=== PATIENT | female | born 1945 | race Caucasian/White ===

== ENCOUNTER → 2016-03-19 | Outpatient (CLI) | payer OTHER, MEDICARE ==
[~2016-03-19] MED LIST: ALBUAER2 INH; ASCA500 PO; ASPCH81 PO; BCTCR/30 EXT; BECL0.072 INH; CLTP PO; CYAN250T PO; FLV400 PO; FURO80TA63 PO; GABA-113 PO; GLCPUNK PO; GLUC10007 PO; HYZ/10015 PO; INSUINJ8 SC; METO-157 PO; MULT-506 PO; NRN/300 PO; NSNN50; NVLGI SC; OLOP0.1S2 OP; ONDA4TAB46 PO; POTA-335 PO; PYRI100T2 PO; RANI300T2 PO; SIMV40TA2 PO; SNG10 PO; SYN100 PO
--- NOTE | 2016-03-19 12:36 | MAMMOGRAPHY REPORT ---
BILATERAL DIGITAL SCREENING MAMMOGRAM WITH CAD: 03/19/2016 CLINICAL HISTORY: Routine screening. Patient has no complaints. TECHNIQUE: Bilateral CC and MLO, left XCCL views were obtained. Current study was also evaluated wi th a Computer Aided Detection (CAD) system. COMPARISON: Comparison is made to exams dated: 03/16/2015 mammogram, 03/13/2013 mammogram, 03/15/20 14 mammogram, 03/21/2012 mammogram, 03/10/2012 mammogram, and 03/09/2011 mammogram - [facility]. BREAST COMPOSITION: There are scattered areas of fibroglandular density in both breasts. FINDINGS: There are benign calcifications and scattered stable punctate benign-appearing microcalcif ications bilaterally. Stable asymmetries in the lateral left breast. No new suspicious mass, archi tectural distortion or cluster of microcalcifications is seen. IMPRESSION: ACR BI-RADS CATEGORY 1: NEGATIVE There is no mammographic evidence of malignancy. A 1 year screening mammogram is recommended. The p atient will receive written notification of the results. Approximately 10% of breast cancers are not detected with mammography. A negative mammographic repor t should not delay biopsy if a clinically suggestive mass is present. Judy Ziegler M.D. ay/:03/19/2016 10:26:19 Tearer: Ashvin CARVAJAL(Comfort)([place]), [facility] letter sent: Normal 1/2 BI-RADS Code: ACR BI-RADS Category 1: Negative
== END | disposition home or self-care (01) ==
LOC: C.MAMM 08:55
PROVIDERS: ATTEND Obstetrics & Gynecology
DX: Z12.31 Encounter for screening mammogram for malignant neoplasm of breast (principal)

== ENCOUNTER → 2016-05-23 | Outpatient (CLI) | payer OTHER, MEDICARE ==
[2016-05-23 12:40] LABS: ALKALINE PHOSPHATASE 62 U/L (45-117); ALT/SGPT 31 U/L (12-78); AST/SGOT 23 U/L (15-37); BLOOD UREA NITROGEN 24 mg/dl (7-18); BUN/CREATININE RATIO 21.6 (10-20); CALCIUM 9.4 mg/dl (8.5-10.1); CARBON DIOXIDE 26 mmol/L (21-32); CHLORIDE 103 mmol/L (98-107); CHOLESTEROL 124 mg/dl (0-200); CHOLESTEROL/HDL RATIO 2.2; GLUCOSE 134 mg/dl (70-99); HDL CHOLESTEROL 56 mg/dl; LDL CHOLESTEROL CALCULATED 39 mg/dl; POTASSIUM 3.9 mmol/L (3.5-5.1); SODIUM 140 mmol/L (136-145); TRIGLYCERIDES 145 mg/dl (0-150); VERY LOW DENSITY LIPOPROT CALC 29 mg/dl
[2016-05-23 12:50] LABS: ALB/GLOB RATIO 0.9 (0.9-2)
[2016-05-23 13:24] LABS: ESTIMATED AVERAGE GLUCOSE 154 mg/dl; HA1C FLAG Normal (Normal)
== END | disposition home or self-care (01) ==
LOC: C.LABBFT 07:36
PROVIDERS: ATTEND Internal Medicine
DX: E11.9 Type 2 diabetes mellitus without complications (principal)

== ENCOUNTER → 2016-07-16 | Outpatient (CLI) | payer OTHER, MEDICARE ==
[~2016-07-16] VITALS: Ht 171.5 cm; Wt 130.2 kg
[~2016-07-16] MED LIST changes: -OLOP0.1S2 OP; +OLOP0.1S3 OP
[2016-07-16 13:56] VITALS: BP 117/74; PULSE 108; Ht 171.5 cm; Wt 130.2 kg
== END | disposition home or self-care (01) ==
LOC: C.NEUR 13:38
PROVIDERS: ATTEND Physician Assistant
DX: J45.909 Unspecified asthma, uncomplicated (principal); G47.30 Sleep apnea, unspecified

== ENCOUNTER → 2016-10-09 | Outpatient (CLI) | payer OTHER, MEDICARE ==
[~2016-10-09] MED LIST changes: -METO-157 PO; +OLOP0.1S2 OP; -OLOP0.1S3 OP; -ONDA4TAB46 PO
== END | disposition home or self-care (01) ==
LOC: C.LAB 07:59
PROVIDERS: ATTEND Obstetrics & Gynecology
DX: C54.1 Malignant neoplasm of endometrium (principal); M54.9 Dorsalgia, unspecified; M41.9 Scoliosis, unspecified

== ENCOUNTER → 2016-10-09 | Outpatient (CLI) | payer OTHER, MEDICARE ==
--- NOTE | 2016-10-09 08:57 | DIAGNOSTIC IMAGING REPORT ---
L-SPINE MIN 4 VIEWS ROUTINE HISTORY: Pain M54.9 [id number] COMPARISON: None. FINDINGS: There is no fracture. Moderate rotational levoscoliosis. Moderate to rather significant degenerative disc changes throughout. No evidence for compression deformity. Moderate anterior osteophytic changes throughout. IMPRESSION: Degenerative change. Scoliosis. No acute process. The above report was generated using voice recognition software. It may contain grammatical, syntax or spelling errors. Electronically signed by: Gaurang Christopher M.D. 10/09/2016 8:56 AM Dictated Date/Time: 10/09/2016 8:56 AM
== END | disposition home or self-care (01) ==
LOC: C.RAD1850 08:40
PROVIDERS: ATTEND Physician Assistant Medical
DX: M54.9 Dorsalgia, unspecified (principal); M41.9 Scoliosis, unspecified

== ENCOUNTER → 2016-11-07 | Outpatient (CLI) | payer OTHER, MEDICARE ==
[2016-11-07 12:21] LABS: BASO % 0.7 %; BASO ABS # 0.05 K/uL (0-0.2); COMPLETE YES; EOS % 3.1 %; HEMATOCRIT 39.6 % (37-47); IG% 0.3 %; LYMPH ABS # 2.33 K/uL (1.2-3.4); MEAN CELL VOLUME 93.2 fL (80-100); MEAN CORPUSCULAR HEMOGLOBIN 29.9 pg (25-34); MEAN CORPUSCULAR HGB CONC 32.1 g/dl (32-36); MEAN PLATELET VOLUME 12.2 fL (7.4-10.4); MONO % 6.4 %; NEUT % 58.5 %; PLATELET COUNT 172 K/uL (130-400); RED BLOOD COUNT 4.25 M/uL (4.2-5.4); WHITE BLOOD COUNT 7.51 K/uL (4.8-10.8)
[2016-11-07 12:59] LABS: ALT/SGPT 26 U/L (12-78); BLOOD UREA NITROGEN 21 mg/dl (7-18); BUN/CREATININE RATIO 16.1 (10-20); CALCIUM 9.2 mg/dl (8.5-10.1); CARBON DIOXIDE 31 mmol/L (21-32); CHLORIDE 103 mmol/L (98-107); CHOLESTEROL 126 mg/dl (0-200); GLUCOSE 143 mg/dl (70-99); POTASSIUM 4.3 mmol/L (3.5-5.1); SODIUM 139 mmol/L (136-145)
[2016-11-07 13:10] LABS: ALKALINE PHOSPHATASE 54 U/L (45-117); AST/SGOT 23 U/L (15-37); CHOLESTEROL/HDL RATIO 2.6; HDL CHOLESTEROL 49 mg/dl; LDL CHOLESTEROL CALCULATED 46 mg/dl; TRIGLYCERIDES 157 mg/dl (0-150); VERY LOW DENSITY LIPOPROT CALC 31 mg/dl
[2016-11-07 13:11] LABS: RATIO 4.2 mcg/mg (0-30.0)
[2016-11-07 13:32] LABS: ESTIMATED AVERAGE GLUCOSE 146 mg/dl; HA1C FLAG Normal (Normal)
== END | disposition home or self-care (01) ==
LOC: C.LABBFT 07:45
PROVIDERS: ATTEND Internal Medicine
DX: E10.9 Type 1 diabetes mellitus without complications (principal)

== ENCOUNTER → 2016-12-19 | Outpatient (CLI) | payer OTHER, MEDICARE ==
[2016-12-19 13:16] LABS: THYROID STIMULATING HORMONE 0.135 uIu/ml (0.300-4.500)
== END | disposition home or self-care (01) ==
LOC: C.LABBFT 08:04
PROVIDERS: ATTEND Internal Medicine
DX: E03.9 Hypothyroidism, unspecified (principal)

== ENCOUNTER → 2017-01-31 | Outpatient (CLI) | payer OTHER, MEDICARE ==
[~2017-01-31] MED LIST changes: -OLOP0.1S2 OP; +OLOP0.1S3 OP
[2017-01-31 14:30] LABS: THYROID STIMULATING HORMONE 0.073 uIu/ml (0.300-4.500)
== END | disposition home or self-care (01) ==
LOC: C.LABBFT 08:44
PROVIDERS: ATTEND Internal Medicine
DX: E03.9 Hypothyroidism, unspecified (principal)

== ENCOUNTER → 2017-03-20 | Outpatient (CLI) | payer OTHER, MEDICARE ==
--- NOTE | 2017-03-20 14:58 | MAMMOGRAPHY REPORT ---
BILATERAL DIGITAL SCREENING MAMMOGRAM TOMOSYNTHESIS WITH CAD: 03/20/2017 CLINICAL HISTORY: Routine screening examination. TECHNIQUE: Breast tomosynthesis in addition to standard 2D mammography was performed. Current study was also evaluated with a Computer Aided Detection (CAD) system. COMPARISON: Comparison is made to exams dated: 03/19/2016 mammogram, 03/16/2015 mammogram, 03/15/2014 mammogram, 03/13/2013 mammogram, 09/22/2012 mammogram, and 03/21/2012 mammogram - [facility]. BREAST COMPOSITION: There are scattered areas of fibroglandular density in both breasts. FINDINGS: There are a few benign rim calcifications in the breasts. No suspicious mass, architectura l distortion or cluster of microcalcifications is seen. IMPRESSION: ACR BI-RADS CATEGORY 1: NEGATIVE There is no mammographic evidence of malignancy. A 1 year screening mammogram is recommended. The pa tient will receive written notification of the results. Approximately 10% of breast cancers are not detected with mammography. A negative mammographic report should not delay biopsy if a clinically suggestive mass is present. Judy Ziegler M.D. ay/:03/20/2017 12:15:12 [employer]itat Conservation Planner: Zonia CARVAJAL(Comfort)([place]), [facility] letter sent: Normal 1/2 BI-RADS Code: ACR BI-RADS Category 1: Negative
== END | disposition home or self-care (01) ==
LOC: C.MAMM 09:48
PROVIDERS: ATTEND Internal Medicine
DX: Z12.31 Encounter for screening mammogram for malignant neoplasm of breast (principal)

== ENCOUNTER → 2017-04-10 | Outpatient (CLI) | payer OTHER, MEDICARE ==
[2017-04-10 12:45] LABS: ALBUMIN 3.7 gm/dl (3.4-5.0); ALT/SGPT 31 U/L (12-78); AST/SGOT 25 U/L (15-37); BLOOD UREA NITROGEN 25 mg/dl (7-18); CALCIUM 10.2 mg/dl (8.5-10.1); CARBON DIOXIDE 29 mmol/L (21-32); CHOLESTEROL 151 mg/dl (0-200); CREATININE 1.16 mg/dl (0.60-1.20); GLUCOSE 159 mg/dl (70-99); POTASSIUM 4.1 mmol/L (3.5-5.1); SODIUM 136 mmol/L (136-145)
[2017-04-10 12:53] LABS: ALKALINE PHOSPHATASE 56 U/L (45-117); LDL CHOLESTEROL CALCULATED 62 mg/dl; TOTAL PROTEIN 7.4 gm/dl (6.4-8.2)
[2017-04-10 13:12] LABS: HEMOGLOBIN A1C 7.3 % (4.5-5.6)
== END | disposition home or self-care (01) ==
LOC: C.LABBFT 08:03
PROVIDERS: ATTEND Internal Medicine
DX: E10.9 Type 1 diabetes mellitus without complications (principal)

== ENCOUNTER → 2017-07-10 | Outpatient (CLI) | payer OTHER, MEDICARE ==
[2017-07-10 19:28] LABS: ALBUMIN 3.5 gm/dl (3.4-5.0); ALT/SGPT 31 U/L (12-78); AST/SGOT 22 U/L (15-37); BLOOD UREA NITROGEN 19 mg/dl (7-18); CALCIUM 9.3 mg/dl (8.5-10.1); CARBON DIOXIDE 30 mmol/L (21-32); GLUCOSE 184 mg/dl (70-99); POTASSIUM 3.7 mmol/L (3.5-5.1); SODIUM 139 mmol/L (136-145)
[2017-07-10 19:38] LABS: ALKALINE PHOSPHATASE 53 U/L (45-117); TOTAL PROTEIN 7.1 gm/dl (6.4-8.2)
== END | disposition home or self-care (01) ==
LOC: C.LABBFT 13:36
PROVIDERS: ATTEND Internal Medicine
DX: M25.50 Pain in unspecified joint (principal); R60.9 Edema, unspecified; M79.1 Myalgia

== ENCOUNTER → 2017-10-09 | Outpatient (CLI) | payer OTHER, MEDICARE | END | disposition home or self-care (01) | LOC: C.LAB 11:51 | PROVIDERS: ATTEND Nurse Practitioner Family | DX: C54.1 Malignant neoplasm of endometrium (principal) ==

== ENCOUNTER 2019-09-08 15:16 | Inpatient (IN) ==
--- NOTE | 2019-09-08 15:40 | Emergency Department Note ---
Impression & Plan Symptomatic bradycardia, Fever, Supratherapeutic INR ED Provider Note NAME: MARE HAMILTON AGE: 74 SEX: F : 1945 ARRIVES VIA: Ambulance INFORMANT: Patient, ED PROVIDER(S): Teo Luo MD Chief Complaint: Nausea vomiting HPI: Patient is present with concern for nausea vomiting. The patient states that this began approximately yesterday. The patient states that she has had similar symptoms in the past when she has been dehydrated. The patient does admit to an episode of falling on Saturday where she struck the right side of her face. The patient is on Coumadin. Patient states that she has not been able to take her medications within the last 24 to 48 hours. The patient states that when she has vomiting it small amounts. The patient denies any diarrhea. Patient that she is had a recent bowel movement with no dysuria dysuria or hematuria. The patient denies any recent travel or sick contacts. Patient does not use on home oxygen. ROS: See HPI for pertinent positives and negatives. A total of 10 systems were reviewed and otherwise negative. Past medical history: See below Surgical history: See below Social history: See below Physical Exam: GENERAL: Moderate distress and mildly ill in appearance. Nasal cannula and mask in place. EYE EXAM: Normal conjunctiva. PERRL, no anisocoria and EOM's grossly intact w/o pain. Head: Normocephalic with small area of right-sided periorbital ecchymosis without any evidence of entrapment or proptosis. No malocclusion or pain of the jaw. NECK: Supple, no nuchal rigidity, no adenopathy, non-tender. No signs of meningismus. No midline C-spine TTP. LUNGS: Clear to auscultation. Normal chest wall mechanics. HEART: NSR, no MRG. ABDOMEN: Upper abdominal pain, no masses, no rebound or guarding. BACK: No CVA TTP. SKIN: No rashes and no bruising. UPPER EXTREMITIES: Upper extremities are grossly normal. LOWER EXTREMITIES: Grossly normal, trace pretibial depressible edema but lower extremities are enlarged, no calf pain. NEURO EXAM: A&O x3, cranial nerves II-XII grossly intact, normal speech, moves all 4 extremities on command w/o issue. Differential diagnoses: Appendicitis, ovarian cyst, ovarian torsion, ectopic , TOA, PID, infections, diverticulitis, UTI, obstruction, mesenteric ischemia, aortic pathology, inflammatory bowel disease, renal colic, PUD, pancreatitis, biliary pathology, hernia, volvulus, constipation, as well as other pathologies. Course: Patient was seen and evaluated the bedside. Full history physical exam was performed. EKG: Indication: Nausea vomiting Likely bigeminy pattern with PVCs noted, right axis deviation, borderline wide QRS normal QTC. Bigeminy is new compared to old on May 02, 2018, patient at that time had left axis deviation and right bundle branch block. I do julita trey that the right axis is being determined from the patient's PVC bigeminal complex but the normal beat may not necessarily be right axis deviation. Patient reportedly does have a history of ventricular bigeminy. Imaging Studies: Radiology results as stated below per my review in the radiologist's interpretation: CT head/brain wo con CLINICAL HISTORY: Head pain status post trauma COMPARISON STUDY: No previous studies for comparison. TECHNIQUE: Axial CT of the brain is performed from the vertex to the skull base. IV contrast was not administered for this examination. A dose lowering te chnique was utilized adhering to the principles of ALARA. CT DOSE: FINDINGS: No intra or extra-axial mass lesions are visualized. There is no CT evidence of acute cortical infarction. There is no evidence of midline shift. There is no acute hemorrhage. No calvarial fractures are visualized. There are minimal white matter hypodensities likely on a small vessel basis. There is no evidence of pathologic ventricular dilatation. There is no evidence of acute sinusitis IMPRESSION: No acute intracranial findings ACT 112: Negative or not required by law. Electronically signed by: Gadiel Mckeon M.D. 09/08/2019 5:26 PM Dictated: 09/08/19 172 Transcribed: 09/08/19 1725 [place], [place] [phone] CT Scan Report Patient: MARE HAMILTON Admit Date: 09/08/19 MR#: [id number] Address1: [address] Acct ID:[id number] Address2: Date: 1945 [facility] Zip: [id number] Age: 74 Location: ED Sex: F Room/Bed: Att Phy: Diagnosis: DIZZINESS, NAUSEA Yessi Phy: Lencho Rodriguez III, MD Service Date: 09/08/19 [facility] Phy: Interpreting Phy: Gadiel Mckeon MD Admit Phy: Ordering Phy: Teo Luo MD cc: ~ CT OF THE CERVICAL SPINE CLINICAL HISTORY: Neck pain status post trauma COMPARISON STUDY: No previous studies for comparison. CT DOSE: TECHNIQUE: CT scan of the cervical spine was performed from the skull base to the thoracic inlet. Images are reviewed in the axial, sagittal, and coronal planes. IV contrast was not administered for this examination. A dose lowering technique was utilized adhering to the principles of ALARA. FINDINGS: The visualized portions of the lung apices reveal no evidence of pneumothorax. There is a 37 x 14 mm ovoid mass/lymph node which abuts the right thyroid gland and lower cervical/upper thoracic esophagus. This lesion is of uncertain etiology. The prevertebral soft tissues are normal. No fractures or subluxations are visualized. There are multilevel degenerative changes IMPRESSION: 1. No evidence of acute fracture or traumatic subluxation 2. 37 x 14 mm ovoid mass/lymph node abutting the right thyroid gland and lower cervical/upper thoracic esophagus. Nonemergent ultrasonography might be considered in follow-up. ACT 112: Negative or not required by law. Electronically signed by: Gadiel Mckeon M.D. 09/08/2019 5:31 PM Dictated: 09/08/196 Transcribed: 09/08/191725 CT facial bones wo con CT DOSE: CLINICAL HISTORY: Facial pain status post trauma COMPARISON STUDY: Maxillofacial CT scan performed July 2013 TECHNIQUE: Helical images were acquired in the transverse plane. The study was reviewed and analyzed on the independent 3-D workstation. A dose lowering technique was utilized adhering to the principles of ALARA. The pterygoid plates appear intact. The zygomatic arches appear intact. The globes appear intact. There is no evidence of orbital emphysema. The orbital bazzi and floor appear intact. The mandibular condyles appear intact. IMPRESSION: No facial fractures identified. ACT 112: Negative or not required by law. Electronically signed by: Gadiel Mckeon M.D. 09/08/2019 5:33 PM Dictated: 09/08/19 1731 Transcribed: 09/08/191730 CT SCAN OF THE ABDOMEN AND PELVIS WITHOUT CONTRAST CLINICAL HISTORY: Abdominal pain, nausea, vomiting. Trauma. COMPARISON STUDY: 02/19/2016 TECHNIQUE: CT scan of the abdomen and pelvis was performed from the lung bases to the proximal femurs. Images are reviewed in the axial, sagittal, and coronal planes. IV contrast was not administered for this examination. A dose lowering technique was utilized adhering to the principles of ALARA. CT DOSE: 4655.33 mGy.cm FINDINGS: Lower chest: There are minor basilar atelectatic changes. There is small hiatal hernia. Liver: The unenhanced liver is normal in size, contour, and attenuation. There is no intrahepatic biliary ductal dilatation. Gallbladder: Unremarkable. Spleen: Normal in size and attenuation. Pancreas: Unremarkable. Adrenal glands: Unremarkable. Kidneys: There is trace perinephric fluid on the right. No renal, ureteral, or bladder calculi are visualized. Bowel: There are no transition zones indicate bowel obstruction. There is no evidence of acute diverticulitis. There are postsurgical changes involving the right colon. No appendix is visualized. There is no pathologic interloop fluid. There is no pneumatosis. Peritoneum: There is no intraperitoneal free air or abdominal ascites. There is a tiny fat-containing umbilical hernia. Vasculature: The abdominal aorta is normal in course and caliber. Adenopathy: None Pelvic viscera: The uterus is surgically absent. Skeletal structures: No fractures are visualized. There are advanced degenerative changes present within the lumbar spine with severe L4-5 spinal stenosis. IMPRESSION: 1. No evidence of acute intra-abdominal or pelvic injury given the limitations of a noncontrast study ACT 112: Negative or not required by law. Electronically signed by: Gadiel Mckeon M.D. 09/08/2019 5:40 PM Dictated: 09/08/19 1733 Transcribed: 09/08/[address] chest wo con CLINICAL HISTORY: Fever, shortness of breath. Trauma. COMPARISON STUDY: 06/19/2012 CT DOSE: TECHNIQUE: CT of the thorax was performed from the thoracic inlet to the lung bases. Images are reviewed in the axial, sagittal, and coronal planes. IV contrast was not administered for this examination. A dose lowering technique was utilized adhering to the principles of ALARA. FINDINGS: Thyroid: The body and the right lobe the thyroid is a 39 x 18 mm mass which abuts the esophagus. This is larger than on the prior 2012 study and likely represents substernal extension of a thyroid goiter. Thoracic aorta: The thoracic aorta is normal in course and caliber, noting standard 3 vessel arch anatomy. Heart: The heart is mildly enlarged. There are mild coronary artery calcifications. There is no significant pericardial effusion. Lungs and pleural spaces: There are no pleural effusions. There is no pneumothorax. There is no lobar consolidation. There is mild subpleural interstitial thickening/edema there are scattered pulmonary micronodules, many of which are calcified and likely postinflammatory Mediastinum: There are multiple borderline enlarged mediastinal lymph nodes. Kathy: There is no evidence of pathologic hilar adenopathy given the limitations of a noncontrast study Axilla: There is no evidence of pathologic axillary lymphadenopathy Upper abdomen: There is a small hiatal hernia. Skeletal structures: No acute fractures are visualized. No destructive lesions are evident. IMPRESSION: 1. No evidence of acute intrathoracic injury given the limitations of a noncontrast study 2. No evidence of focal pulmonary consolidation 3. Borderline enlarged mediastinal lymph nodes 4. Mild subpleural septal edema 5. Enlarging 39 x 18 mm right paratracheal mass, likely representing substernal extension of a thyroid goiter ACT 112: Negative or not required by law. Electronically signed by: Gadiel Mckeon M.D. 09/08/2019 5:54 PM Dictated: 09/08/191742 Transcribed: 09/08/191747 Cardiac monitoring: An order was placed for continuous cardiac monitoring. The monitor shows a rate of 79 with bigeminy rhythm. MDM: Patient does present with concern for nausea vomiting. Patient does have a reported fever. Blood works obtained along with EKG troponin chest x-ray Zosyn and a small Boo IV fluids. Patient was symptomatic and bradycardic so the patient did receive calcium and atropine. The patient's CTs do not show any acute concern. The patient does have a likely thyroid goiter. Patient's blood work does show chronic CKD. Troponin detectable but not elevated. INR supratherapeutic patient has no signs of bleeding. White count is normal. Pro- Xavier is also normal. I did speak the on-call hospitalist who agreed to further evaluate treat the patient. Patient was subsequently mated to the medicine service. Critical Care: I have personally spent 45 minutes of critical care time in direct management of this patient. This includes bedside care, interpretation of diagnostic studies, and testing, discussion with consultants, patient, and family members, and other require inpatient management activities. This 45 minutes is in excess of all separately billable procedures. Past Med/Surg History Medical History Arthritis Asthma Cardiac conduction disorder (Inactive) Coronary artery disease (Acute) Deep vein thrombosis 2002 (HORMONE MEDICATION REASON) Deviated septum History of bradycardia (Acute) Hyperlipidemia (Acute) Hypertension (Acute) Hypothyroidism (Acute) Lymphedema Polyneuropathy (Acute) Pulmonary embolism 2002 Right bundle branch block (Acute) Sleep apnea CPAP Trifascicular bundle branch block Type 2 diabetes mellitus (Acute) Surgical History Cataract (Acute) RT/LEFT Family history of reaction to anesthesia FATHER-SLOW TO WAKE UP H/O total hysterectomy with removal of both tubes and ovaries (~06/10/08) History of cardiac cath 2006 (NO STENTS) DX RT BUNDLE BRANCH BLOCK History of colonoscopy (~06/06/18) History of loop recorder History of tonsillectomy and adenoidectomy (Acute) Hx of appendectomy COLON POLYP REMOVED AT SAME TIME Family History Grandmother (Paternal) Family history of diabetes mellitus Mother Family history of diabetes mellitus Sister Family history of diabetes mellitus Cancer Social History Preferred Language: [place] Communication Ability: Effective Flatbed Stitcher Required: No Beliefs That Will Affect Care: None Current Living Situation: Alone Other Information That Helps Us Care for You: No Feels Safe at Home: Yes Safety Concerns: Feels Safe At This Time Smoking Status: Never smoker Second Hand Exposure: Yes (IN THE PAST) ; Hx Alcohol Use: No Hx Substance Use: No Allergies Allergies Allergy/AdvReac Type Severity Reaction Status Date / Time adhesive Allergy Severe blisters Verified 09/08/19 17:17 asparagus Allergy Intermediate RASH HIVES Verified 09/08/19 17:17 bumetanide Allergy Intermediate RASH Verified 09/08/19 17:17 mold Allergy Intermediate nasal Verified 09/08/19 17:17 congestion strawberry Allergy Intermediate HIVES Verified 09/08/19 17:17 cetirizine Allergy Mild rash, H/A Verified 09/08/19 17:17 pollen extracts Allergy Unknown Unknown Verified 09/08/19 17:17 Cantaloupe Allergy Intermediate RASH HIVES Uncoded 09/08/19 17:17 Home Meds Home Medications Medication Instructions Recorded Confirmed Caltrate 600 plus D 1 tab PO BID 04/22/18 09/08/19 ascorbic acid (vitamin C) [Vitamin 1,000 mg PO DAILY 04/22/18 09/08/19 C With Griselda Hips] azelastine 2 spray INTRANASAL Q12H PRN 04/22/18 09/08/19 glucosamine-chondroitin 1 tab PO BID 04/22/18 09/08/19 multivitamin 1 tab PO DAILY 04/22/18 09/08/19 mupirocin 1 applic TOPICAL UD 04/22/18 09/08/19 pyridoxine (vitamin B6) [Vitamin 100 mg PO DAILY 04/22/18 09/08/19 B-6] blood sugar diagnostic #10 ea 10/22/18 08/31/19 losartan 100 1 tab PO DAILY tab 10/22/18 09/08/19 mg-hydrochlorothiazide 25 mg tablet olopatadine 0.2 % eye drops 1 drp OPHTHALMIC (EYE) BID PRN ml 10/22/18 09/08/19 cyanocobalamin (vitamin B-12) 500 500 mcg PO DAILY 11/28/18 09/08/19 mcg tablet folic acid 800 mcg tablet 800 mcg PO DAILY tab 11/28/18 09/08/19 insulin aspart U-100 100 unit/mL 1 sliding scale dose SQ 11/28/18 09/08/19 subcutaneous solution USEASDIRECTD famotidine 40 mg PO HS 09/08/19 09/08/19 warfarin 5 mg PO 4XWK 09/08/19 09/08/19 warfarin [Coumadin] 2.5 mg PO 3XWK 09/08/19 09/08/19 Previous Rx's Medication Instructions Recorded levothyroxine 137 mcg tablet 137 mcg PO QAM #90 tab 12/04/18 montelukast 10 mg tablet 10 mg PO DAILY #90 tab 01/07/19 simvastatin 40 mg tablet 40 mg PO HS #90 tab 01/07/19 furosemide 80 mg tablet 80 mg PO DAILY #180 tab 01/13/19 metformin 500 mg tablet 500 mg PO BID #180 tab 01/23/19 beclomethasone dipropionate 40 2 puffs INHALATION BID #10.6 gm 03/20/19 mcg/actuation HFA breath activated aerosol potassium chloride 20 mEq 20 meq PO BID #180 tab 04/20/19 tablet,extended release insulin NPH isoph U-100 human 100 50 unit SUBCUT .COMPLEX #90 ml 05/15/19 unit/mL subcutaneous suspension metoprolol succinate 25 mg 25 mg PO DAILY #90 tab 05/26/19 tablet,extended release 24 hr gabapentin 300 mg capsule 600 mg PO TID #180 cap 07/23/19 albuterol sulfate 90 mcg/actuation 2 puff INHALATION QID PRN #18 gm 07/27/19 aerosol inhaler insulin syringe-needle U-100 1 mL #100 ea 08/31/19 31 gauge x 5/16" sulfamethoxazole 800 1 tab PO BID #20 tab 08/31/19 mg-trimethoprim 160 mg tablet Results & Data (ED) Vital Signs Vital Signs - 24 hr 09/08/19 15:11 09/08/19 15:32 09/08/19 16:15 Temperature 39.2 C H Temperature Source Oral Pulse Rate 45 L 90 42 L Pulse Rate from SpO2 Sensor 44 L 41 L Pulse Rhythm Respiratory Rate 20 23 21 Respiratory Effort / Characteristics Non-Labored Spontaneous Respiratory Depth Normal Respiratory Pattern Regular Blood Pressure 150/54 H 150/54 H 135/68 Blood Pressure Mean 86 102 105 Blood Pressure Position Lying Pulse Oximetry 88 L 96 98 Oxygen Delivery Method Room Air Oxygen Flow Rate 0 Sepsis Recent Fever Within 48 Hours Yes Sepsis New/Unexplained Change in Mental Status No Sepsis Action Taken by Nursing No Action Required Oxygen Flow Rate - Titration 4 Pulse Oximetry Post Tiitration 93 09/08/19 16:32 09/08/19 16:45 09/08/19 17:24 Temperature Temperature Source Pulse Rate 0 L 75 41 L Pulse Rate from SpO2 Sensor 66 81 Pulse Rhythm Respiratory Rate 18 17 18 Respiratory Effort / Characteristics Respiratory Depth Respiratory Pattern Blood Pressure 96/66 L 152/70 H 140/53 L Blood Pressure Mean 88 93 91 Blood Pressure Position Pulse Oximetry 100 91 Oxygen Delivery Method Oxymask Room Air Oxygen Flow Rate 4 Sepsis Recent Fever Within 48 Hours Sepsis New/Unexplained Change in Mental Status Sepsis Action Taken by Nursing Oxygen Flow Rate - Titration Pulse Oximetry Post Tiitration 09/08/19 17:31 09/08/19 17:46 09/08/19 18:02 Temperature Temperature Source Pulse Rate 76 75 93 H Pulse Rate from SpO2 Sensor 64 95 H Pulse Rhythm Irregular Respiratory Rate 16 16 22 Respiratory Effort / Characteristics Respiratory Depth Respiratory Pattern Blood Pressure 145/54 H 135/68 103/68 Blood Pressure Mean 80 95 87 Blood Pressure Position Pulse Oximetry 86 L 100 93 Oxygen Delivery Method Room Air Nasal Cannula Nasal Cannula Oxygen Flow Rate 4 4 Sepsis Recent Fever Within 48 Hours Sepsis New/Unexplained Change in Mental Status Sepsis Action Taken by Nursing Oxygen Flow Rate - Titration Pulse Oximetry Post Tiitration 09/08/19 18:31 09/08/19 18:47 09/08/19 19:17 Temperature 37.3 C Temperature Source Pulse Rate 81 72 86 Pulse Rate from SpO2 Sensor 83 67 Pulse Rhythm Respiratory Rate 16 14 17 Respiratory Effort / Characteristics Respiratory Depth Respiratory Pattern Blood Pressure 148/55 H 148/92 H 147/65 H Blood Pressure Mean 71 117 110 Blood Pressure Position Pulse Oximetry 99 98 Oxygen Delivery Method Nasal Cannula Oxygen Flow Rate 4 Sepsis Recent Fever Within 48 Hours Sepsis New/Unexplained Change in Mental Status Sepsis Action Taken by Nursing Oxygen Flow Rate - Titration Pulse Oximetry Post Tiitration 09/08/19 19:46 09/08/19 20:00 Temperature Temperature Source Pulse Rate 84 86 Pulse Rate from SpO2 Sensor Pulse Rhythm Respiratory Rate 16 18 Respiratory Effort / Characteristics Respiratory Depth Respiratory Pattern Blood Pressure 133/66 Blood Pressure Mean 100 Blood Pressure Position Pulse Oximetry 96 99 Oxygen Delivery Method Nasal Cannula Nasal Cannula Oxygen Flow Rate 4 4 Sepsis Recent Fever Within 48 Hours Sepsis New/Unexplained Change in Mental Status Sepsis Action Taken by Nursing Oxygen Flow Rate - Titration Pulse Oximetry Post Tiitration Home Medications Current Medication List: was personally reviewed by me Laboratory Data Attestation: I reviewed the patient's lab results. Result diagrams: 09/08/19 15:45 09/08/19 15:45 Lab Results 09/08/19 09/08/19 09/08/19 Range/Units 15:45 15:45 15:45 WBC 7.42 (4.8-10.8) K/uL RBC 4.13 L (4.2-5.4) M/uL Hgb 11.8 L (12.0-16.0) g/dL POC Hgb (12.0-16.0) g/dl Hct 36.9 L (37-47) % POC Hct (37-47) % MCV 89.3 (80-100) fL MCH 28.6 (25-34) pg MCHC 32.0 (32-36) g/dL RDW Std Deviation 49.4 H (36.4-46.3) fL RDW Coeff of Consuelo 15.2 H (11.5-14.5) % Plt Count 188 (130-400) K/uL MPV 12.4 H (7.4-10.4) fL Immature Gran % (Auto) 0.3 % Neut % (Auto) 82.4 % Lymph % (Auto) 12.1 % [place] % (Auto) 4.2 % Eos % (Auto) 0.7 % Baso % (Auto) 0.3 % Neut # (Auto) 6.12 (1.4-6.5) K/uL Lymph # (Auto) 0.90 L (1.2-3.4) K/uL [place] # (Auto) 0.31 (0.11-0.59) K/uL Eos # (Auto) 0.05 (0-0.5) K/uL Baso # (Auto) 0.02 (0-0.2) K/uL Immature Gran # (Auto) 0.02 (0.00-0.02) K/uL PT 46.9 H (9.0-12.0) Seconds INR 4.8 H (0.9-1.1) APTT 46.3 H* (21.0-31.0) Seconds PTT Ratio 1.7 POC Sodium (135-144) mmol/L Sodium 134 L (136-145) mmol/L POC Potassium (3.3-5.0) mmol/L Potassium 4.0 (3.5-5.1) mmol/L POC Chloride (101-112) mmol/L Chloride 99 (98-107) mmol/L Carbon Dioxide 27 (21-32) mmol/L POC Total CO2 (24-31) mmol/L Anion Gap 8.0 (3-11) POC Anion Gap (16-25) mmol/L POC BUN (7-18) mg/dl BUN 24 H (7-18) mg/dl Creatinine 2.12 H (0.6-1.2) mg/dl POC Creatinine (0.6-1.3) mg/dl Est Cr Clr Drug Dosing Not Reportable Est GFR ( Amer) 26.3 Est GFR (Non-Af Amer) 22.7 BUN/Creatinine Ratio 11.1 (10-20) Glucose 165 H (70-99) mg/dl POC Glucose (other) (70-99) mg/dl Lactate (0.4-2.0) mmol/L Calcium 9.1 (8.5-10.1) mg/dl POC Ioniz Calcium Radha (1.12-1.32) mmol/l Magnesium 2.5 H (1.8-2.4) mg/dl Total Bilirubin 0.5 (0.2-1) mg/dl AST 21 (15-37) U/L ALT 19 (12-78) U/L Alkaline Phosphatase 58 (45-117) U/L Troponin I 0.020 (0-0.045) ng/ml Total Protein 7.4 (6.4-8.2) gm/dl Albumin 3.5 (3.4-5.0) gm/dl Globulin 3.9 (2.5-4.0) gm/dl Albumin/Globulin Ratio 0.9 (0.9-2) Procalcitonin (0-0.5) ng/ml Urine Color Urine Appearance (Clear) Urine pH (4.5-7.5) Ur Specific [place] (1.000-1.030) Urine Protein (Negative) Urine Glucose (UA) (Negative) Urine Ketones (Negative) Urine Blood (Negative) Urine Nitrite (Negative) Urine Bilirubin (Negative) Urine Urobilinogen (Negative) Ur Leukocyte Esterase (Negative) 09/08/19 09/08/19 09/08/19 Range/Units 15:45 15:55 16:05 WBC (4.8-10.8) K/uL RBC (4.2-5.4) M/uL Hgb (12.0-16.0) g/dL POC Hgb 12.6 (12.0-16.0) g/dl Hct (37-47) % POC Hct 37 (37-47) % MCV (80-100) fL MCH (25-34) pg MCHC (32-36) g/dL RDW Std Deviation (36.4-46.3) fL RDW Coeff of Consuelo (11.5-14.5) % Plt Count (130-400) K/uL MPV (7.4-10.4) fL Immature Gran % (Auto) % Neut % (Auto) % Lymph % (Auto) % [place] % (Auto) % Eos % (Auto) % Baso % (Auto) % Neut # (Auto) (1.4-6.5) K/uL Lymph # (Auto) (1.2-3.4) K/uL [place] # (Auto) (0.11-0.59) K/uL Eos # (Auto) (0-0.5) K/uL Baso # (Auto) (0-0.2) K/uL Immature Gran # (Auto) (0.00-0.02) K/uL PT (9.0-12.0) Seconds INR (0.9-1.1) APTT (21.0-31.0) Seconds PTT Ratio POC Sodium 134 L (135-144) mmol/L Sodium (136-145) mmol/L POC Potassium 4.1 (3.3-5.0) mmol/L Potassium (3.5-5.1) mmol/L POC Chloride 97 L (101-112) mmol/L Chloride (98-107) mmol/L Carbon Dioxide (21-32) mmol/L POC Total CO2 26 (24-31) mmol/L Anion Gap (3-11) POC Anion Gap 16.0 (16-25) mmol/L POC BUN 25 H (7-18) mg/dl BUN (7-18) mg/dl Creatinine (0.6-1.2) mg/dl POC Creatinine 2.0 H (0.6-1.3) mg/dl Est Cr Clr Drug Dosing Est GFR ( Amer) Est GFR (Non-Af Amer) BUN/Creatinine Ratio (10-20) Glucose (70-99) mg/dl POC Glucose (other) 175 H (70-99) mg/dl Lactate 1.8 (0.4-2.0) mmol/L Calcium (8.5-10.1) mg/dl POC Ioniz Calcium Radha 1.16 (1.12-1.32) mmol/l Magnesium (1.8-2.4) mg/dl Total Bilirubin (0.2-1) mg/dl AST (15-37) U/L ALT (12-78) U/L Alkaline Phosphatase (45-117) U/L Troponin I (0-0.045) ng/ml Total Protein (6.4-8.2) gm/dl Albumin (3.4-5.0) gm/dl Globulin (2.5-4.0) gm/dl Albumin/Globulin Ratio (0.9-2) Procalcitonin 0.08 (0-0.5) ng/ml Urine Color Urine Appearance (Clear) Urine pH (4.5-7.5) Ur Specific [place] (1.000-1.030) Urine Protein (Negative) Urine Glucose (UA) (Negative) Urine Ketones (Negative) Urine Blood (Negative) Urine Nitrite (Negative) Urine Bilirubin (Negative) Urine Urobilinogen (Negative) Ur Leukocyte Esterase (Negative) 09/08/19 Range/Units 18:00 WBC (4.8-10.8) K/uL RBC (4.2-5.4) M/uL Hgb (12.0-16.0) g/dL POC Hgb (12.0-16.0) g/dl Hct (37-47) % POC Hct (37-47) % MCV (80-100) fL MCH (25-34) pg MCHC (32-36) g/dL RDW Std Deviation (36.4-46.3) fL RDW Coeff of Consuelo (11.5-14.5) % Plt Count (130-400) K/uL MPV (7.4-10.4) fL Immature Gran % (Auto) % Neut % (Auto) % Lymph % (Auto) % [place] % (Auto) % Eos % (Auto) % Baso % (Auto) % Neut # (Auto) (1.4-6.5) K/uL Lymph # (Auto) (1.2-3.4) K/uL [place] # (Auto) (0.11-0.59) K/uL Eos # (Auto) (0-0.5) K/uL Baso # (Auto) (0-0.2) K/uL Immature Gran # (Auto) (0.00-0.02) K/uL PT (9.0-12.0) Seconds INR (0.9-1.1) APTT (21.0-31.0) Seconds PTT Ratio POC Sodium (135-144) mmol/L Sodium (136-145) mmol/L POC Potassium (3.3-5.0) mmol/L Potassium (3.5-5.1) mmol/L POC Chloride (101-112) mmol/L Chloride (98-107) mmol/L Carbon Dioxide (21-32) mmol/L POC Total CO2 (24-31) mmol/L Anion Gap (3-11) POC Anion Gap (16-25) mmol/L POC BUN (7-18) mg/dl BUN (7-18) mg/dl Creatinine (0.6-1.2) mg/dl POC Creatinine (0.6-1.3) mg/dl Est Cr Clr Drug Dosing Est GFR ( Amer) Est GFR (Non-Af Amer) BUN/Creatinine Ratio (10-20) Glucose (70-99) mg/dl POC Glucose (other) (70-99) mg/dl Lactate (0.4-2.0) mmol/L Calcium (8.5-10.1) mg/dl POC Ioniz Calcium Radha (1.12-1.32) mmol/l Magnesium (1.8-2.4) mg/dl Total Bilirubin (0.2-1) mg/dl AST (15-37) U/L ALT (12-78) U/L Alkaline Phosphatase (45-117) U/L Troponin I (0-0.045) ng/ml Total Protein (6.4-8.2) gm/dl Albumin (3.4-5.0) gm/dl Globulin (2.5-4.0) gm/dl Albumin/Globulin Ratio (0.9-2) Procalcitonin (0-0.5) ng/ml Urine Color Yellow Urine Appearance Clear (Clear) Urine pH 6.0 (4.5-7.5) Ur Specific [place] 1.017 (1.000-1.030) Urine Protein Negative (Negative) Urine Glucose (UA) Negative (Negative) Urine Ketones Negative (Negative) Urine Blood Negative (Negative) Urine Nitrite Negative (Negative) Urine Bilirubin Negative (Negative) Urine Urobilinogen Negative (Negative) Ur Leukocyte Esterase Negative (Negative) Administered Medications Sodium Chloride (Nss 1000ml) 1,000 mls @ 80 mls/hr IV .[id number] [facility] Stop: 10/08/19 22:29 Last Admin: 09/08/19 22:55 Dose: 80 mls/hr Documented by: [id number] Discontinued Medications Atropine Sulfate (Atropine Sulfate) 0.5 mg IV NOW STA Stop: 09/08/19 16:19 Last Admin: 09/08/19 16:29 Dose: 0.5 mg Documented by: [id number] Calcium Gluconate (Calcium Gluconate 10%) 2,000 mg IV NOW STA Stop: 09/08/19 16:19 Last Admin: 09/08/19 16:30 Dose: 2,000 mg Documented by: [id number] Sodium Chloride (Nss) 500 mls @ 999 mls/hr IV .Q31M ONE Stop: 09/08/19 16:18 Last Infusion: 09/08/19 17:30 Dose: 0 mls/hr Documented by: [id number] Admin: 09/08/19 16:18 Dose: 999 mls/hr Documented by: [id number] Piperacillin Sod/Tazobactam Sod (Zosyn) 4.5 gm in 120 mls @ 240 mls/hr IV NOW ONE Stop: 09/08/19 16:19 Last Infusion: 09/08/19 17:30 Dose: 0 mls/hr Documented by: [id number] Admin: 09/08/19 16:19 Dose: 240 mls/hr Documented by: [id number] Sodium Chloride (Nss 1000ml) 500 mls @ 999 mls/hr IV .Q31M ONE Stop: 09/08/19 17:55 Last Infusion: 09/08/19 17:56 Dose: 0 mls/hr Documented by: [id number] Admin: 09/08/19 17:20 Dose: 999 mls/hr Documented by: [id number] Daptomycin 625 mg/ Syringe 12.5 mls @ 6.25 mls/min IV NOW ONE; Protocol Stop: 09/08/19 20:08 Last Admin: 09/08/19 21:07 Dose: 6.25 mls/min Documented by: [id number] Ondansetron HCl (Zofran) Confirm Administered Dose 4 mg .ROUTE .STK-MED ONE Stop: 09/08/19 17:04 Last Admin: 09/08/19 17:10 Dose: 4 mg Documented by: [id number] Ondansetron HCl (Zofran) Confirm Administered Dose 4 mg .ROUTE .STK-MED ONE Stop: 09/08/19 20:08 Last Admin: 09/08/19 20:14 Dose: 4 mg Documented by: [id number] Prochlorperazine (Compazine) Confirm Administered Dose 10 mg .ROUTE .STK-MED ONE Stop: 09/08/19 21:27 Last Admin: 09/08/19 21:40 Dose: 10 mg Documented by: [id number] Discharge Plan Visit Data *Final* Discharge Date/Time: 09/08/19 21:34 Chief Complaint: Dizziness Stated Complaint: DIZZINESS, NAUSEA ED Provider: Teo Luo Discharge Problem: Symptomatic bradycardia, Fever, Supratherapeutic INR Patient Disposition: Admitted As Inpatient Discharge Instructions Interventions: ED Discharge Assessment Last Done: 09/08/19 21:34 Discharge Problem: Fever Qualifiers: Fever type: unspecified Qualified Code(s): R50.9 - Fever, unspecified
[2019-09-08] MEDS ORDERED: SODIUM CHLORIDE 0.9% 500 ML IV ONE (15:48)
[2019-09-08] MEDS ORDERED: PIPERACILL/TAZOBAC CONSULT ACTIVE PRN ×2 (15:50→20:20)
[2019-09-08] MEDS ORDERED: PIPERACILLIN/TAZOBACTAM 4.5 GM/120 ML BAG IV ONE (15:50)
[2019-09-08 16:18] LABS: Hematocrit (blood only) 36.9 % (37-47); Hemoglobin 11.8 g/dL (12.0-16.0); Mean Corpuscular Hemoglobin 28.6 pg (25-34); Mean Corpuscular Volume 89.3 fL (80-100); Mean Platelet Volume 12.4 fL (7.4-10.4); Platelet Count 188 K/uL (130-400); RDW Coefficient of Variation 15.2 % (11.5-14.5); RDW Standard Deviation 49.4 fL (36.4-46.3); Red Blood Count 4.13 M/uL (4.2-5.4); White Blood Count 7.42 K/uL (4.8-10.8)
[2019-09-08] MEDS ORDERED: CALCIUM GLUCONATE 10% 10 ML VIAL IV STA (16:18)
[2019-09-08] MEDS ORDERED: ATROPINE SULFATE 0.1 MG/ML 10ML SYR IV STA (16:18)
[2019-09-08 16:19] LABS: iSTAT Hemoglobin 12.6 g/dl (12.0-16.0); iSTAT Ionized Calcium 1.16 mmol/l (1.12-1.32); iSTAT Potassium 4.1 mmol/L (3.3-5.0)
--- NOTE | 2019-09-08 16:26 | XRay Report ---
XR chest 1V portable CLINICAL HISTORY: SEPSIS COMPARISON STUDY: 05/02/2018 FINDINGS: The heart is enlarged. There is radiographic evidence of mild pulmonary vascular congestion . There is right hilar prominence. This may indicate focal airspace disease, adenopathy, or mass. Cli nical and imaging follow-up recommended. There are no pleural effusions. There is an electronic devic e projected over the left lower chest wall possibly representing an event recorder IMPRESSION: 1. Cardiomegaly and radiographic evidence of mild pulmonary vascular congestion 2. Right hilar prominence. This could indicate a focal airspace opacity, adenopathy, or mass. Clinica l and imaging follow-up is recommended. ACT 112: Negative or not required by law. Electronically signed by: Gadiel Mckeon M.D. 09/08/2019 4:25 PM
[2019-09-08 16:32] LABS: Alanine Aminotransferase 19 U/L (12-78); Albumin Level 3.5 gm/dl (3.4-5.0); Aspartate Aminotransferase 21 U/L (15-37); BUN Creatinine Ratio 11.1 (10-20); Blood Urea Nitrogen 24 mg/dl (7-18); Calcium 9.1 mg/dl (8.5-10.1); Carbon Dioxide 27 mmol/L (21-32); Chloride 99 mmol/L (98-107); Est GFR (African American) 26.3; Est GFR (Non-African American) 22.7; Glucose 165 mg/dl (70-99); Magnesium 2.5 mg/dl (1.8-2.4); Sodium 134 mmol/L (136-145)
[2019-09-08 16:37] LABS: Albumin Globulin Ratio 0.9 (0.9-2); Alkaline Phosphatase 58 U/L (45-117); Bilirubin,Total 0.5 mg/dl (0.2-1); Globulin 3.9 gm/dl (2.5-4.0); Total Protein 7.4 gm/dl (6.4-8.2)
[2019-09-08 16:39] LABS: INR 4.8 (0.9-1.1); Partial Thromboplastin Ratio 1.7; Prothrombin Time 46.9 Seconds (9.0-12.0)
[2019-09-08 16:41] LABS: Partial Thromboplastin Time 46.3 Seconds (21.0-31.0)
[2019-09-08 16:48] LABS: Basophils # (auto) 0.02 K/uL (0-0.2); Basophils % (auto) 0.3 %; Eosinophils # (auto) 0.05 K/uL (0-0.5); Eosinophils % (auto) 0.7 %; Immature Granulocytes # (auto) 0.02 K/uL (0.00-0.02); Immature Granulocytes % (auto) 0.3 %; Lymphocytes % (auto) 12.1 %; Monocytes # (auto) 0.31 K/uL (0.11-0.59); Monocytes % (auto) 4.2 %; Neutrophils # (auto) 6.12 K/uL (1.4-6.5); Neutrophils % (auto) 82.4 %
[2019-09-08] MEDS ORDERED: ONDANSETRON INJ 2 MG/ML 2 ML VIAL ONE ×2 (17:03→20:07)
[2019-09-08] MEDS ORDERED: SODIUM CHLORIDE 0.9% 1000ML 500 ML IV ONE (17:25)
--- NOTE | 2019-09-08 17:27 | CT Scan Report ---
CT head/brain wo con CLINICAL HISTORY: Head pain status post trauma COMPARISON STUDY: No previous studies for comparison. TECHNIQUE: Axial CT of the brain is performed from the vertex to the skull base. IV contrast was not administered for this examination. A dose lowering technique was utilized adhering to the principles of ALARA. CT DOSE: FINDINGS: No intra or extra-axial mass lesions are visualized. There is no CT evidence of acute cortical infarc tion. There is no evidence of midline shift. There is no acute hemorrhage. No calvarial fractures ar e visualized. There are minimal white matter hypodensities likely on a small vessel basis. There is no evidence of pathologic ventricular dilatation. There is no evidence of acute sinusitis IMPRESSION: No acute intracranial findings ACT 112: Negative or not required by law. Electronically signed by: Gadiel Mckeon M.D. 09/08/2019 5:26 PM
--- NOTE | 2019-09-08 17:32 | CT Scan Report ---
CT OF THE CERVICAL SPINE CLINICAL HISTORY: Neck pain status post trauma COMPARISON STUDY: No previous studies for comparison. CT DOSE: TECHNIQUE: CT scan of the cervical spine was performed from the skull base to the thoracic inlet. Tressa ges are reviewed in the axial, sagittal, and coronal planes. IV contrast was not administered for thi s examination. A dose lowering technique was utilized adhering to the principles of ALARA. FINDINGS: The visualized portions of the lung apices reveal no evidence of pneumothorax. There is a 37 x 14 mm ovoid mass/lymph node which abuts the right thyroid gland and lower cervical/upper thoracic esophagus . This lesion is of uncertain etiology. The prevertebral soft tissues are normal. No fractures or subluxations are visualized. There are multilevel degenerative changes IMPRESSION: 1. No evidence of acute fracture or traumatic subluxation 2. 37 x 14 mm ovoid mass/lymph node abutting the right thyroid gland and lower cervical/upper thoraci c esophagus. Nonemergent ultrasonography might be considered in follow-up. ACT 112: Negative or not required by law. Electronically signed by: Gadiel Mckeon M.D. 09/08/2019 5:31 PM
--- NOTE | 2019-09-08 17:35 | CT Scan Report ---
CT facial bones wo con CT DOSE: CLINICAL HISTORY: Facial pain status post trauma COMPARISON STUDY: Maxillofacial CT scan performed July 2013 TECHNIQUE: Helical images were acquired in the transverse plane. The study was reviewed and analyzed on the independent 3-D workstation. A dose lowering technique was utilized adhering to the principle s of ALARA. The pterygoid plates appear intact. The zygomatic arches appear intact. The globes appear intact. There is no evidence of orbital emphysema. The orbital bazzi and floor appear intact. The mandibular condyles appear intact. IMPRESSION: No facial fractures identified. ACT 112: Negative or not required by law. Electronically signed by: Gadiel Mckeon M.D. 09/08/2019 5:33 PM
--- NOTE | 2019-09-08 17:41 | CT Scan Report ---
CT SCAN OF THE ABDOMEN AND PELVIS WITHOUT CONTRAST CLINICAL HISTORY: Abdominal pain, nausea, vomiting. Trauma. COMPARISON STUDY: 02/19/2016 TECHNIQUE: CT scan of the abdomen and pelvis was performed from the lung bases to the proximal femurs . Images are reviewed in the axial, sagittal, and coronal planes. IV contrast was not administered fo r this examination. A dose lowering technique was utilized adhering to the principles of ALARA. CT DOSE: 4655.33 mGy.cm FINDINGS: Lower chest: There are minor basilar atelectatic changes. There is small hiatal hernia. Liver: The unenhanced liver is normal in size, contour, and attenuation. There is no intrahepatic yefri iary ductal dilatation. Gallbladder: Unremarkable. Spleen: Normal in size and attenuation. Pancreas: Unremarkable. Adrenal glands: Unremarkable. Kidneys: There is trace perinephric fluid on the right. No renal, ureteral, or bladder calculi are vi sualized. Bowel: There are no transition zones indicate bowel obstruction. There is no evidence of acute divert iculitis. There are postsurgical changes involving the right colon. No appendix is visualized. There is no pathologic interloop fluid. There is no pneumatosis. Peritoneum: There is no intraperitoneal free air or abdominal ascites. There is a tiny fat-containing umbilical hernia. Vasculature: The abdominal aorta is normal in course and caliber. Adenopathy: None Pelvic viscera: The uterus is surgically absent. Skeletal structures: No fractures are visualized. There are advanced degenerative changes present wit hin the lumbar spine with severe L4-5 spinal stenosis. IMPRESSION: 1. No evidence of acute intra-abdominal or pelvic injury given the limitations of a noncontrast study ACT 112: Negative or not required by law. Electronically signed by: Gadiel Mckeon M.D. 09/08/2019 5:40 PM
--- NOTE | 2019-09-08 17:55 | CT Scan Report ---
CT chest wo con CLINICAL HISTORY: Fever, shortness of breath. Trauma. COMPARISON STUDY: 06/19/2012 CT DOSE: TECHNIQUE: CT of the thorax was performed from the thoracic inlet to the lung bases. Images are revi ewed in the axial, sagittal, and coronal planes. IV contrast was not administered for this examinatio n. A dose lowering technique was utilized adhering to the principles of ALARA. FINDINGS: Thyroid: The body and the right lobe the thyroid is a 39 x 18 mm mass which abuts the esophagus. This is larger than on the prior 2012 study and likely represents substernal extension of a thyroid goite r. Thoracic aorta: The thoracic aorta is normal in course and caliber, noting standard 3 vessel arch marie jacques. Heart: The heart is mildly enlarged. There are mild coronary artery calcifications. There is no signi ficant pericardial effusion. Lungs and pleural spaces: There are no pleural effusions. There is no pneumothorax. There is no lobar consolidation. There is mild subpleural interstitial thickening/edema there are scattered pulmonary micronodules, many of which are calcified and likely postinflammatory Mediastinum: There are multiple borderline enlarged mediastinal lymph nodes. Kathy: There is no evidence of pathologic hilar adenopathy given the limitations of a noncontrast stud y Axilla: There is no evidence of pathologic axillary lymphadenopathy Upper abdomen: There is a small hiatal hernia. Skeletal structures: No acute fractures are visualized. No destructive lesions are evident. IMPRESSION: 1. No evidence of acute intrathoracic injury given the limitations of a noncontrast study 2. No evidence of focal pulmonary consolidation 3. Borderline enlarged mediastinal lymph nodes 4. Mild subpleural septal edema 5. Enlarging 39 x 18 mm right paratracheal mass, likely representing substernal extension of a thyroi d goiter ACT 112: Negative or not required by law. Electronically signed by: Gadiel Mckeon M.D. 09/08/2019 5:54 PM
[2019-09-08 18:18] LABS: Appearance Urine Clear (Clear); Bilirubin Urine Negative (Negative); Blood Urine Negative (Negative); Color Urine Yellow; Glucose Urine UA Negative (Negative); Ketones Urine Negative (Negative); Leukocyte Esterase Urine Negative (Negative); Nitrite Urine Negative (Negative); Protein Urine Negative (Negative); Specific Gravity Urine 1.017 (1.000-1.030); Urobilinogen Urine Negative (Negative)
[2019-09-08] MEDS ORDERED: DAPTOMYCIN CONSULT ACTIVE PRN ×2 (20:07→20:20)
[2019-09-08] MEDS ORDERED: DAPTOmycin 625 MG in SYRINGE 0 ML IV ONE (20:07)
--- NOTE | 2019-09-08 20:24 | History & Physical Report ---
Date of Service September 08, 2019 Assessment & Plan (1) Cellulitis of both lower extremities: Place on daptomycin IV and Zosyn IV. Suspect infection, early sepsis and dehydration to be contributing to patient's fall. We will hold diuretics, placed on IV fluids, and hold a number of her antihyper tensives as noted below. Present on Admission?: Yes (2) Ventricular bigeminy: CAD/hypertension/atrial fibrillation/ventricular bigeminy/CHF/question of symptomatic bradycardia per ED The emergency department was unclear if she was also having symptomatic bradycardia, so they gave atropine 0.5 mg IV. The patient's monitor in the ED would be variable between atrial fibrillation and sinus rhythm with ventricular bigeminy. The patient will be admitted to telemetry for serial cardiac enzymes, serial EKG's, cardiac rhythm monitoring and a 2-D echocardiogram with Dopplers. Hold furosemide and continue rehydration with IV fluids. Patient did receive a total of 1 L of normal saline from the ED. INR is 4.8 upon admission, and will therefore hold warfarin. Hold metoprolol for now. Present on Admission?: Yes (3) Symptomatic bradycardia: See above Present on Admission?: Yes (4) Atrial fibrillation: See above Present on Admission?: Yes (5) Coronary artery disease: See above Present on Admission?: Yes (6) Supratherapeutic INR: INR 4.8 upon admission. We will hold warfarin. If not improved in the morning, will give vitamin K, otherwise follow serially Present on Admission?: Yes (7) Uncontrolled type 2 diabetes mellitus with insulin therapy: Hold metformin and insulin NPH. Place on Accu-Cheks before meals and at bedtime/every 6 hours, with NovoLog coverage per scale Check a hemoglobin A1c Present on Admission?: Yes (8) Acute kidney injury superimposed on chronic kidney disease: Creatinine 2.12 upon admission, with range 1.18-1.76. Follow serial laboratories. Hold losartan/HCTZ and furosemide. Continue rehydration with IV fluids Present on Admission?: Yes (9) Hypothyroidism: Continue levothyroxine 137 mcg daily Present on Admission?: Yes (10) Polyneuropathy: Continue gabapentin 600 mg p.o. 3 times daily Present on Admission?: Yes History of Present Illness Chief Complaint: The patient presents to the emergency department with nausea and vomiting that began the day prior to arrival, whose symptoms are similar to times of previous dehydration Primary Care Provider: Lencho Rodriguez MD The patient is a 74-year-old female with a past medical history including trifascicular bundle branch block, atrial fibrillation, CKD stage III, endometrial cancer, CAD, asthma, essential tremor, thrombophlebitis of deep veins of upper extremities, ventricular bigeminy, chronic diastolic heart failure, uncontrolled obese mellitus type II, hyperlipidemia, hypertension, hypothyroidism and polyneuropathy. She presents to the emergency department with nausea and vomiting, symptoms of dehydration, and had an episode 2 days ago where she fell and struck the right side of her face. She does not remember if she lost consciousness. She denies any recent travel or sick contacts, including exposures to COVID-19. Allergies Allergy/AdvReac Type Severity Reaction Status Date / Time adhesive Allergy Severe blisters Verified 09/08/19 17:17 asparagus Allergy Intermediate RASH HIVES Verified 09/08/19 17:17 bumetanide Allergy Intermediate RASH Verified 09/08/19 17:17 mold Allergy Intermediate nasal Verified 09/08/19 17:17 congestion strawberry Allergy Intermediate HIVES Verified 09/08/19 17:17 cetirizine Allergy Mild rash, H/A Verified 09/08/19 17:17 pollen extracts Allergy Unknown Unknown Verified 09/08/19 17:17 Cantaloupe Allergy Intermediate RASH HIVES Uncoded 09/08/19 17:17 Home Medications Home Medications Medication Instructions Recorded Confirmed Type Caltrate 600 plus D 1 tab PO BID 04/22/18 09/08/19 History ascorbic acid (vitamin C) [Vitamin 1,000 mg PO DAILY 04/22/18 09/08/19 History C With Griselda Hips] azelastine 2 spray INTRANASAL Q12H PRN 04/22/18 09/08/19 History glucosamine-chondroitin 1 tab PO BID 04/22/18 09/08/19 History multivitamin 1 tab PO DAILY 04/22/18 09/08/19 History mupirocin 1 applic TOPICAL UD 04/22/18 09/08/19 History pyridoxine (vitamin B6) [Vitamin 100 mg PO DAILY 04/22/18 09/08/19 History B-6] blood sugar diagnostic #10 ea 10/22/18 08/31/19 History losartan 100 1 tab PO DAILY tab 10/22/18 09/08/19 History mg-hydrochlorothiazide 25 mg tablet olopatadine 0.2 % eye drops 1 drp OPHTHALMIC (EYE) BID PRN ml 10/22/18 09/08/19 History cyanocobalamin (vitamin B-12) 500 500 mcg PO DAILY 11/28/18 09/08/19 History mcg tablet folic acid 800 mcg tablet 800 mcg PO DAILY tab 11/28/18 09/08/19 History insulin aspart U-100 100 unit/mL 1 sliding scale dose SQ 11/28/18 09/08/19 History subcutaneous solution USEASDIRECTD levothyroxine 137 mcg tablet 137 mcg PO QAM #90 tab 12/04/18 09/08/19 Rx montelukast 10 mg tablet 10 mg PO DAILY #90 tab 01/07/19 09/08/19 Rx simvastatin 40 mg tablet 40 mg PO HS #90 tab 01/07/19 09/08/19 Rx furosemide 80 mg tablet 80 mg PO DAILY #180 tab 01/13/19 09/08/19 Rx metformin 500 mg tablet 500 mg PO BID #180 tab 01/23/19 09/08/19 Rx beclomethasone dipropionate 40 2 puffs INHALATION BID #10.6 gm 03/20/19 09/08/19 Rx mcg/actuation HFA breath activated aerosol potassium chloride 20 mEq 20 meq PO BID #180 tab 04/20/19 09/08/19 Rx tablet,extended release insulin NPH isoph U-100 human 100 50 unit SUBCUT .COMPLEX #90 ml 05/15/19 09/08/19 Rx unit/mL subcutaneous suspension metoprolol succinate 25 mg 25 mg PO DAILY #90 tab 05/26/19 09/08/19 Rx tablet,extended release 24 hr gabapentin 300 mg capsule 600 mg PO TID #180 cap 07/23/19 09/08/19 Rx albuterol sulfate 90 mcg/actuation 2 puff INHALATION QID PRN #18 gm 07/27/19 09/08/19 Rx aerosol inhaler insulin syringe-needle U-100 1 mL #100 ea 08/31/19 09/08/19 Rx 31 gauge x 5/16" sulfamethoxazole 800 1 tab PO BID #20 tab 08/31/19 09/08/19 Rx mg-trimethoprim 160 mg tablet famotidine 40 mg PO HS 09/08/19 09/08/19 History warfarin 5 mg PO 4XWK 09/08/19 09/08/19 History warfarin [Coumadin] 2.5 mg PO 3XWK 09/08/19 09/08/19 History Past Med/Surg History Medical History Arthritis Asthma Cardiac conduction disorder (Inactive) Coronary artery disease (Acute) Deep vein thrombosis 2002 (HORMONE MEDICATION REASON) Deviated septum History of bradycardia (Acute) Hyperlipidemia (Acute) Hypertension (Acute) Hypothyroidism (Acute) Lymphedema Polyneuropathy (Acute) Pulmonary embolism 2002 Right bundle branch block (Acute) Sleep apnea CPAP Trifascicular bundle branch block Type 2 diabetes mellitus (Acute) Surgical History Cataract (Acute) RT/LEFT Family history of reaction to anesthesia FATHER-SLOW TO WAKE UP H/O total hysterectomy with removal of both tubes and ovaries (~06/10/08) History of cardiac cath 2006 (NO STENTS) DX RT BUNDLE BRANCH BLOCK History of colonoscopy (~06/06/18) History of loop recorder History of tonsillectomy and adenoidectomy (Acute) Hx of appendectomy COLON POLYP REMOVED AT SAME TIME Family History Grandmother (Paternal) Family history of diabetes mellitus Mother Family history of diabetes mellitus Sister Family history of diabetes mellitus Cancer Social History Preferred Language: Maori Communication Ability: Effective Mandarin Tutor Required: No Beliefs That Will Affect Care: None Current Living Situation: Alone Other Information That Helps Us Care for You: No Feels Safe at Home: Yes Safety Concerns: Feels Safe At This Time Smoking Status: Never smoker Second Hand Exposure: Yes (IN THE PAST) ; Hx Alcohol Use: No Hx Substance Use: No Review of Systems Review of Systems: The patient denies chest pain, palpitations, shortness of breath, dyspnea on exertion, cough, lower extremity swelling, sore throat, fevers, chills, sweats, diarrhea , constipation, abdominal pain, pelvic pain, blood in urine or stool, dysuria, urinary frequency or urgency, loss of consciousness, focal or generalized weakness, numbness or tingling in arms or legs, generalized arthralgias or myalgias, back or neck pain, or night sweats. The review of systems is otherwise negative other than for that already noted above, and at least 10 systems have been reviewed. Physical Exam Physical Exam: The patient is awake, alert and oriented 3, well developed and well nourished, ecchymoses around right eye, lying in bed and in no acute distress. HEENT--PERRL, EOMI, mucous membranes and oropharynx dry. Neck--supple. No JVD. No bruits. Thyroid normal, trachea midline, no adenopathy. Heart--normal S1 and S2. No murmurs, rubs or gallops. Lungs--clear bilaterally, no respiratory distress, no accessory muscle use. Abdomen--normal bowel sounds and soft. Nontender. Nondistended. Morbidly obese Extremities--no cyanosis or clubbing. No edema. Dermatologic--ecchymoses around right eye as noted Rheumatologic--limited exam Psychiatric--normal affect. Results & Data Results & Data ([facility]) Vital Signs (Past 12 Hours) Vital Signs Temp Pulse Resp BP Pulse Ox 09/08/19 19:46 84 16 133/66 96 09/08/19 19:17 99.1 F 86 17 147/65 H 98 09/08/19 18:47 72 14 148/92 H 99 09/08/19 18:31 81 16 148/55 H 09/08/19 18:02 93 H 22 103/68 93 09/08/19 17:46 75 16 135/68 100 09/08/19 17:31 76 16 145/54 H 86 L 09/08/19 17:24 41 L 18 140/53 L 91 09/08/19 16:45 75 17 152/70 H 100 09/08/19 16:32 0 L 18 96/66 L 09/08/19 16:15 42 L 21 135/68 98 09/08/19 15:32 90 23 150/54 H 96 09/08/19 15:11 102.6 F H 45 L 20 150/54 H 88 L Laboratory Results Laboratory Results WBC 7.42 K/uL (4.8-10.8) 09/08/19 15:45 RBC 4.13 M/uL (4.2-5.4) L 09/08/19 15:45 Hgb 11.8 g/dL (12.0-16.0) L 09/08/19 15:45 POC Hgb 12.6 g/dl (12.0-16.0) 09/08/19 16:05 Hct 36.9 % (37-47) L 09/08/19 15:45 POC Hct 37 % (37-47) 09/08/19 16:05 MCV 89.3 fL (80-100) 09/08/19 15:45 MCH 28.6 pg (25-34) 09/08/19 15:45 MCHC 32.0 g/dL (32-36) 09/08/19 15:45 RDW Std Deviation 49.4 fL (36.4-46.3) H 09/08/19 15:45 RDW Coeff of Consuelo 15.2 % (11.5-14.5) H 09/08/19 15:45 Plt Count 188 K/uL (130-400) 09/08/19 15:45 MPV 12.4 fL (7.4-10.4) H 09/08/19 15:45 Immature Gran % (Auto) 0.3 % 09/08/19 15:45 Neut % (Auto) 82.4 % 09/08/19 15:45 Lymph % (Auto) 12.1 % 09/08/19 15:45 [place] % (Auto) 4.2 % 09/08/19 15:45 Eos % (Auto) 0.7 % 09/08/19 15:45 Baso % (Auto) 0.3 % 09/08/19 15:45 Neut # (Auto) 6.12 K/uL (1.4-6.5) 09/08/19 15:45 Lymph # (Auto) 0.90 K/uL (1.2-3.4) L 09/08/19 15:45 [place] # (Auto) 0.31 K/uL (0.11-0.59) 09/08/19 15:45 Eos # (Auto) 0.05 K/uL (0-0.5) 09/08/19 15:45 Baso # (Auto) 0.02 K/uL (0-0.2) 09/08/19 15:45 Immature Gran # (Auto) 0.02 K/uL (0.00-0.02) 09/08/19 15:45 PT 46.9 Seconds (9.0-12.0) H 09/08/19 15:45 INR 4.8 (0.9-1.1) H 09/08/19 15:45 APTT 46.3 Seconds (21.0-31.0) H* 09/08/19 15:45 PTT Ratio 1.7 09/08/19 15:45 POC Sodium 134 mmol/L (135-144) L 09/08/19 16:05 Sodium 134 mmol/L (136-145) L 09/08/19 15:45 POC Potassium 4.1 mmol/L (3.3-5.0) 09/08/19 16:05 Potassium 4.0 mmol/L (3.5-5.1) 09/08/19 15:45 POC Chloride 97 mmol/L (101-112) L 09/08/19 16:05 Chloride 99 mmol/L (98-107) 09/08/19 15:45 Carbon Dioxide 27 mmol/L (21-32) 09/08/19 15:45 POC Total CO2 26 mmol/L (24-31) 09/08/19 16:05 Anion Gap 8.0 (3-11) 09/08/19 15:45 POC Anion Gap 16.0 mmol/L (16-25) 09/08/19 16:05 POC BUN 25 mg/dl (7-18) H 09/08/19 16:05 BUN 24 mg/dl (7-18) H 09/08/19 15:45 Creatinine 2.12 mg/dl (0.6-1.2) H 09/08/19 15:45 POC Creatinine 2.0 mg/dl (0.6-1.3) H 09/08/19 16:05 Est Cr Clr Drug Dosing Not Reportable 09/08/19 15:45 Est GFR ( Amer) 26.3 09/08/19 15:45 Est GFR (Non-Af Amer) 22.7 09/08/19 15:45 BUN/Creatinine Ratio 11.1 (10-20) 09/08/19 15:45 Glucose 165 mg/dl (70-99) H 09/08/19 15:45 POC Glucose 194 mg/dl (70-99) H 09/08/19 22:42 POC Glucose (other) 175 mg/dl (70-99) H 09/08/19 16:05 Lactate 1.8 mmol/L (0.4-2.0) 09/08/19 15:55 Calcium 9.1 mg/dl (8.5-10.1) 09/08/19 15:45 POC Ioniz Calcium Radha 1.16 mmol/l (1.12-1.32) 09/08/19 16:05 Magnesium 2.5 mg/dl (1.8-2.4) H 09/08/19 15:45 Total Bilirubin 0.5 mg/dl (0.2-1) 09/08/19 15:45 AST 21 U/L (15-37) 09/08/19 15:45 ALT 19 U/L (12-78) 09/08/19 15:45 Alkaline Phosphatase 58 U/L (45-117) 09/08/19 15:45 Troponin I 0.020 ng/ml (0-0.045) 09/08/19 15:45 Total Protein 7.4 gm/dl (6.4-8.2) 09/08/19 15:45 Albumin 3.5 gm/dl (3.4-5.0) 09/08/19 15:45 Globulin 3.9 gm/dl (2.5-4.0) 09/08/19 15:45 Albumin/Globulin Ratio 0.9 (0.9-2) 09/08/19 15:45 Procalcitonin 0.08 ng/ml (0-0.5) 09/08/19 15:45 Urine Color Yellow 09/08/19 18:00 Urine Appearance Clear (Clear) 09/08/19 18:00 Urine pH 6.0 (4.5-7.5) 09/08/19 18:00 Ur Specific [place] 1.017 (1.000-1.030) 09/08/19 18:00 Urine Protein Negative (Negative) 09/08/19 18:00 Urine Glucose (UA) Negative (Negative) 09/08/19 18:00 Urine Ketones Negative (Negative) 09/08/19 18:00 Urine Blood Negative (Negative) 09/08/19 18:00 Urine Nitrite Negative (Negative) 09/08/19 18:00 Urine Bilirubin Negative (Negative) 09/08/19 18:00 Urine Urobilinogen Negative (Negative) 09/08/19 18:00 Ur Leukocyte Esterase Negative (Negative) 09/08/19 18:00 Diagnostic Findings [facility], [place] [phone] CT Scan Report Patient: MARE HAMILTON AAdmit Date: 09/08/19 MR#: [id number]: Judd HAMILTON RD Acct ID:[id number]: Date: 1945City Zip: [place] [address] Age: 74Location: ED Sex: F Room/Bed: Att Phy:Diagnosis: DIZZINESS, NAUSEA Yessi Phy: Lencho Rodriguez III, MDService Date: 09/08/19 Fam Phy:Interpreting Phy: Gadiel Mckeon MD Admit Phy: Ordering Phy: Teo Luo MD cc: ~ CT OF THE CERVICAL SPINE CLINICAL HISTORY: Neck pain status post trauma COMPARISON STUDY: No previous studies for comparison. CT DOSE: TECHNIQUE: CT scan of the cervical spine was performed from the skull base to the thoracic inlet. Images are reviewed in the axial, sagittal, and coronal planes. IV contrast was not administered for this examination. A dose lowering technique was utilized adhering to the principles of ALARA. FINDINGS: The visualized portions of the lung apices reveal no evidence of pneumothorax. There is a 37 x 14 mm ovoid mass/lymph node which abuts the right thyroid gland and lower cervical/upper thoracic esophagus. This lesion is of uncertain etiology. The prevertebral soft tissues are normal. No fractures or subluxations are visualized. There are multilevel degenerative changes IMPRESSION: 1. No evidence of acute fracture or traumatic subluxation 2. 37 x 14 mm ovoid mass/lymph node abutting the right thyroid gland and lower c ervical/upper thoracic esophagus. Nonemergent ultrasonography might be considered in follow-up. ACT 112: Negative or not required by law. Electronically signed by: Gadiel Mckeon M.D. 09/08/2019 5:31 PM Dictated: 09/08/191725 Transcribed: 09/08/19 172 [facility], [place] [phone] XRay Report Patient: MARE HAMILTON AAdmit Date: 09/08/19 MR#: [id number]: [address] Acct ID:[id number]: Date: 1945[facility] Zip: [place] [address] Age: 74Location: ED Sex: F Room/Bed: Att Phy:Diagnosis: DIZZINESS, NAUSEA Yessi Phy: Lencho Rodriguez., III, MDService Date: 09/08/19 Fam Phy:Interpreting Phy: Gadiel Mckeon MD Admit Phy: Ordering Phy: Teo Luo MD cc: ~ XR chest 1V portable CLINICAL HISTORY: SEPSIS COMPARISON STUDY: 05/02/2018 FINDINGS: The heart is enlarged. There is radiographic evidence of mild pulmonary vascular congestion. There is right hilar prominence. This may indicate focal airspace disease, adenopathy, or mass. Clinical and imaging follow-up recommended. There are no pleural effusions. There is an electronic device projected over the left lower chest wall possibly representing an event recorder IMPRESSION: 1. Cardiomegaly and radiographic evidence of mild pulmonary vascular congestion 2. Right hilar prominence. This could indicate a focal airspace opacity, adenopathy, or mass. Clinical and imaging follow-up is recommended. ACT 112: Negative or not required by law. Electronically signed by: Gadiel Mckeon M.D. 09/08/2019 4:25 PM Dictated: 09/08/19 1622 Transcribed: 09/08/19 1622 [facility], [place] [phone] CT Scan Report Patient: MARE HAMILTON AAdmit Date: 09/08/19 MR#: [id number]: [address] Acct ID:[id number]: Date: 1945[facility] Zip: [place] [address] Age: 74Location: ED Sex: F Room/Bed: Att Phy:Diagnosis: DIZZINESS, NAUSEA Yessi Phy: Lencho Rodriguez., III, MDService Date: 09/08/19 Fam Phy:Interpreting Phy: Gadiel Mckeon MD Admit Phy: Ordering Phy: Teo Luo MD cc: ~ CT facial bones wo con CT DOSE: CLINICAL HISTORY: Facial pain status post trauma COMPARISON STUDY: Maxillofacial CT scan performed July 2013 TECHNIQUE: Helical images were acquired in the transverse plane. The study was reviewed and analyzed on the independent 3-D workstation. A dose lowering technique was utilized adhering to the principles of ALARA. The pterygoid plates appear intact. The zygomatic arches appear intact. The globes appear intact. There is no evidence of orbital emphysema. The orbital bazzi and floor appear intact. The mandibular condyles appear intact. IMPRESSION: No facial fractures identified. ACT 112: Negative or not required by law. Electronically signed by: Gadiel Mckeon M.D. 09/08/2019 5:33 PM Dictated: 09/08/191730 Transcribed: 09/08/191730 [place], [place] [phone] CT Scan Report Patient: MARE HAMILTON AAdmit Date: 09/08/19 MR#: [id number]: Judd H[address] RD Acct ID:[id number]: Date: 1945[facility] Zip: [place] [address] Age: 74Location: ED Sex: F Room/Bed: Att Phy:Diagnosis: DIZZINESS, NAUSEA Yessi Phy: Lencho Rodriguez III, MDService Date: 09/08/19 Fam Phy:Interpreting Phy: Gadiel Mckeon MD Admit Phy: Ordering Phy: Teo Luo MD cc: ~ CT head/brain wo con CLINICAL HISTORY: Head pain status post trauma COMPARISON STUDY: No previous studies for comparison. TECHNIQUE: Axial CT of the brain is performed from the vertex to the skull base. IV contrast was not administered for this examination. A dose lowering technique was utilized adhering to the principles of ALARA. CT DOSE: FINDINGS: No intra or extra-axial mass lesions are visualized. There is no CT evidence of acute cortical infarction. There is no evidence of midline shift. There is no acute hemorrhage. No calvarial fractures are visualized. There are minimal white matter hypodensities likely on a small vessel basis. There is no evidence of pathologic ventricular dilatation. There is no evidence of acute sinusitis IMPRESSION: No acute intracranial findings ACT 112: Negative or not required by law. Electronically signed by: Gadiel Mckeon M.D. 09/08/2019 5:26 PM Dictated: 09/08/19 1725 Transcribed: 09/08/19 1725 [place], [place] [phone] CT Scan Report Patient: MARE HAMILTON Date: 09/08/19 MR#: [id number]: Judd HAMILTON RD Acct ID:[id number]: Date: 1945City Zip: [place] [address] Age: 74Location: ED Sex: F Room/Bed: Att Phy:Diagnosis: DIZZINESS, NAUSEA Yessi Phy: Lencho Rodriguez III, MDService Date: 09/08/19 Fam Phy:Interpreting Phy: Gadiel Mckeon MD Admit Phy: Ordering Phy: Teo Luo MD cc: ~ CT SCAN OF THE ABDOMEN AND PELVIS WITHOUT CONTRAST CLINICAL HISTORY: Abdominal pain, nausea, vomiting. Trauma. COMPARISON STUDY: 02/19/2016 TECHNIQUE: CT scan of the abdomen and pelvis was performed from the lung bases to the proximal femurs. Images are reviewed in the axial, sagittal, and coronal planes. IV contrast was not administered for this examination. A dose lowering technique was utilized adhering to the principles of ALARA. CT DOSE: 4655.33 mGy.cm FINDINGS: Lower chest: There are minor basilar atelectatic changes. There is small hiatal hernia. Liver: The unenhanced liver is normal in size, contour, and attenuation. There is no intrahepatic biliary ductal dilatation. Gallbladder: Unremarkable. Spleen: Normal in size and attenuation. Pancreas: Unremarkable. Adrenal glands: Unremarkable. Kidneys: There is trace perinephric fluid on the right. No renal, ureteral, or bladder calculi are visualized. Bowel: There are no transition zones indicate bowel obstruction. There is no evidence of acute diverticulitis. There are postsurgical changes involving the right colon. No appendix is visualized. There is no pathologic interloop fluid. There is no pneumatosis. Peritoneum: There is no intraperitoneal free air or abdominal ascites. There is a tiny fat-containing umbilical hernia. Vasculature: The abdominal aorta is normal in course and caliber. Adenopathy: None Pelvic viscera: The uterus is surgically absent. Skeletal structures: No fractures are visualized. There are advanced degenerativ e changes present within the lumbar spine with severe L4-5 spinal stenosis. IMPRESSION: 1. No evidence of acute intra-abdominal or pelvic injury given the limitations of a noncontrast study ACT 112: Negative or not required by law. Electronically signed by: Gadiel Mckeon M.D. 09/08/2019 5:40 PM Dictated: 09/08/19 173 Transcribed: 09/08/19 173 [place], [place] [phone] CT Scan Report Patient: MARE HAMILTON AAdmit Date: 09/08/19 MR#: [id number]: [address] Acct ID:[id number]: Date: 1945City Zip: [place] [address] Age: 74Location: ED Sex: F Room/Bed: Att Phy:Diagnosis: DIZZINESS, NAUSEA Yessi Phy: Lencho Rodriguez III, MDService Date: 09/08/19 Fam Phy:Interpreting Phy: Gadiel Mckeon MD Admit Phy: Ordering Phy: Teo Luo MD cc: ~ CT chest wo con CLINICAL HISTORY: Fever, shortness of breath. Trauma. COMPARISON STUDY: 06/19/2012 CT DOSE: TECHNIQUE: CT of the thorax was performed from the thoracic inlet to the lung bases. Images are reviewed in the axial, sagittal, and coronal planes. IV contrast was not administered for this examination. A dose lowering technique was utilized adhering to the principles of ALARA. FINDINGS: Thyroid: The body and the right lobe the thyroid is a 39 x 18 mm mass which abuts the esophagus. This is larger than on the prior 2012 study and likely represents substernal extension of a thyroid goiter. Thoracic aorta: The thoracic aorta is normal in course and caliber, noting standard 3 vessel arch anatomy. Heart: The heart is mildly enlarged. There are mild coronary artery calcifications. There is no significant pericardial effusion. Lungs and pleural spaces: There are no pleural effusions. There is no pneumothorax. There is no lobar consolidation. There is mild subpleural interstitial thickening/edema there are scattered pulmonary micronodules, many of which are calcified and likely postinflammatory Mediastinum: There are multiple borderline enlarged mediastinal lymph nodes. Kathy: There is no evidence of pathologic hilar adenopathy given the limitations of a noncontrast study Axilla: There is no evidence of pathologic axillary lymphadenopathy Upper abdomen: There is a small hiatal hernia. Skeletal structures: No acute fractures are visualized. No destructive lesions are evident. IMPRESSION: 1. No evidence of acute intrathoracic injury given the limitations of a noncontrast study 2. No evidence of focal pulmonary consolidation 3. Borderline enlarged mediastinal lymph nodes 4. Mild subpleural septal edema 5. Enlarging 39 x 18 mm right paratracheal mass, likely representing substernal extension of a thyroid goiter ACT 112: Negative or not required by law. Electronically signed by: Gadiel Mckeon M.D. 09/08/2019 5:54 PM Dictated: 09/08/191742 Transcribed: 09/08/191747 Code Status & VTE Plan Code Status Full code VTE Prophylaxis Plan VTE Prophylaxis will be ordered: Yes PG Care Time/CCT Total # of Minutes Spent Total Time Spent with Patient: Total time spent is greater than 50% in coordination of care (as documented) at patient's floor/unit and/or counseling patient: Coding Level of Care Code 64290 Initial Inpt Care Lvl 3 Diagnoses Cellulitis of both lower extremities L03.115; L03.116 Ventricular bigeminy I49.9 Symptomatic bradycardia R00.1 Atrial fibrillation I48.91 Coronary artery disease I25.10 Supratherapeutic INR R79.1 Uncontrolled type 2 diabetes mellitus with insulin therapy E11.65; Z79.4 Acute kidney injury superimposed on chronic kidney disease N17.9; N18.9 Hypothyroidism E03.9 Polyneuropathy G62.9
[2019-09-08] MEDS ORDERED: PROCHLORPERAZINE 5 MG/ML 2 ML VIAL ONE (21:26)
[2019-09-08] MEDS ORDERED: PROCHLORPERAZINE 10 MG in SYRINGE 8 ML IV PRN (21:38)
[2019-09-08] MEDS ORDERED: DEXTROSE 50% 50 ML SYRINGE IV PRN (22:09)
[2019-09-08] MEDS ORDERED: ONDANSETRON INJ 2 MG/ML 2 ML VIAL IV PRN (22:09)
[2019-09-08] MEDS ORDERED: NON-FORMULARY MEDICATION (Glucosamine-Chondroitin 1 TAB) PO SCH (22:09)
[2019-09-08] MEDS ORDERED: GLUCOSE 40% GEL 15 GM TUBE PO PRN (22:09)
[2019-09-08] MEDS ORDERED: NON-FORMULARY MEDICATION (Olopatadine 1 DROPS) OP PRN (22:09)
[2019-09-08] MEDS ORDERED: GLUCAGON FOR INJ 1 MG VIAL SQ PRN (22:09)
[2019-09-08] MEDS ORDERED: CARBOHYDRATES FOR HYPOGLYCEMIA PO PRN (22:09)
[2019-09-08] MEDS ORDERED: GLUCOSE 10 TABS/TUBE PO PRN (22:09)
[2019-09-08] MEDS ORDERED: NON-FORMULARY MEDICATION (Azelastine 2 SPRAYS) INTNAS PRN (22:09)
[2019-09-08] MEDS ORDERED: ALBUTEROL HFA 8 GM INHALER INH PRN (22:19)
[2019-09-08] MEDS: SODIUM CHLORIDE 0.9% 1000ML 1,000 ML IV SCH (22:55)
[2019-09-09] MEDS: PIPERACILLIN/TAZOBACTAM 4.5 GM/120 ML BAG IV SCH ×3 (02:29→14:02)
[2019-09-09] MEDS: INSULIN ASPART 100 UNITS/ML 3 ML PEN SC SCH ×5 (02:30→21:12)
[2019-09-09] MEDS: CALCIUM 600MG + VIT D 400 IU TAB PO SCH ×3 (02:30→19:09)
[2019-09-09] MEDS: GABAPENTIN 300 MG CAP PO SCH ×4 (02:32→19:09)
[2019-09-09] MEDS: FAMOTIDINE 40 MG TABLET PO SCH ×2 (02:33→19:09)
[2019-09-09] MEDS: LEVOTHYROXINE SODIUM 137 MCG TABLET PO SCH (03:54)
[2019-09-09] MEDS ORDERED: METOPROLOL SUCC 25MG EXT REL TAB PO SCH (08:00)
[2019-09-09] MEDS ORDERED: CYANOCOBALAMIN 500 MCG TABLET (VITAMIN B-12) PO SCH (08:00)
[2019-09-09] MEDS: FLUTICASONE FUROATE 100MCG 14 PUFFS/INHALER INH SCH (08:25)
[2019-09-09] MEDS: MICONAZOLE NITRATE POWDER 43 GM EXT PRN (08:25)
[2019-09-09] MEDS: MULTIVITAMIN TAB PO SCH (08:27)
[2019-09-09] MEDS: MONTELUKAST SODIUM 10 MG TABLET PO SCH (08:27)
[2019-09-09] MEDS: FOLIC ACID 400 MCG TAB PO SCH (08:27)
[2019-09-09] MEDS: ASCORBIC ACID 500 MG TAB PO SCH (08:28)
[2019-09-09] MEDS: PYRIDOXINE HCL 50 MG TAB PO SCH (08:28)
[2019-09-09] MEDS: ACETAMINOPHEN 325 MG TAB PO PRN ×3 (08:28→19:10)
[2019-09-09 09:32] LABS: Estimated Average Glucose 166 mg/dl; Hemoglobin A1C 7.4 % (4.5-5.6)
[2019-09-09] MEDS: SODIUM CHLORIDE 0.9% 1000ML 1,000 ML IV SCH (11:45)
--- NOTE | 2019-09-09 13:10 | Electrocardiogram Report ---
Test Reason : Blood Pressure : / mmHG Vent. Rate : 079 BPM Atrial Rate : 079 BPM P-R Int : 000 ms QRS Dur : 114 ms QT Int : 376 ms P-R-T Axes : 000 107 268 degrees QTc Int : 431 ms Possible Junctional rhythm with PVCs in a pattern of bigeminy Right bundle branch block Inferior infarct , age undetermined Abnormal ECG When compared with ECG of 02-MAY-2018 21:10, Significant changes have occurred Confirmed by Jeffrey Woodruff ([id number]) on 09/09/2019 1:09:58 PM Referred By: REFERRED SELF Confirmed By:Jeffrey Woodruff
--- NOTE | 2019-09-09 13:45 | Electrocardiogram Report ---
Test Reason : Blood Pressure : / mmHG Vent. Rate : 088 BPM Atrial Rate : 000 BPM P-R Int : 000 ms QRS Dur : 162 ms QT Int : 456 ms P-R-T Axes : 000 244 000 degrees QTc Int : 551 ms Atrial fibrillation with premature ventricular or aberrantly conducted complexes Right bundle branch block Possible Anterior infarct , age undetermined Inferior infarct , age undetermined Abnormal ECG When compared with ECG of 08-SEP-2019 15:33, (unconfirmed) Right bundle branch block is now Present Confirmed by Jeffrey Woodruff ([id number] on 09/09/2019 1:45:37 PM Referred By: REFERRED SELF Confirmed By:Jeffrey Woodruff
--- NOTE | 2019-09-09 17:51 | Hospitalist Progress Note ---
Date of Service September 09, 2019 Assessment & Plan (1) Symptomatic bradycardia: HR is bouncing up and down; lots of PVCs. - Restart beta-estefania - Interrogate device (2) Cellulitis of both lower extremities: Was on Augmentin x 10 days, then started on Bactrim on 08/26 again without significant improvement. - Placed on daptomycin IV and Zosyn IV on admission. - On 09/08, I do not think this is cellulitis. The erythema is only mildly pink, not very hot, and not tender to palpation. She reports they have never been painful or tender. - Will stop abx at this time; get venous duplex of legs. (3) Atrial fibrillation: In afib on admission. Rates reported as low as 40s earlier, though not supported by the tele monitor. - Continue warfarin for anticoagulation - Continue beta-estefania as above (4) Coronary artery disease: No chest pain reported. - Continue statin (5) Uncontrolled type 2 diabetes mellitus with insulin therapy: A1c was 7.4% this admission. - Hold metformin and insulin NPH. - Place on Accu-Cheks before meals and at bedtime/every 6 hours, with NovoLog coverage per scale (6) Acute kidney injury superimposed on chronic kidney disease: Creatinine 2.12 upon admission, with range 1.18-1.76. Likely from dehydration and Bactrim use. - Hold losartan/HCTZ and furosemide. - Stop IV fluids - Monitor (7) Hypothyroidism: TSH was 0.2 in 05/2019. - Continue levothyroxine 137 mcg daily - Recheck TSH (8) Polyneuropathy: - Continue gabapentin 600 mg p.o. 3 times daily (9) DVT prophylaxis: Warfarin Admission and Anticipated Discharge Date Admission Date: September 08, 2019 Subjective Less pain today. Feels her legs are less red. Reports no fevers/chills, chest pain, shortness of breath, abdominal pain, nausea, or vomiting. Physical Exam Constitutional: WD/WN, vitals as above + morbidly obese Eyes: EOM intact bilaterally; no conjunctival abnormality ENMT: external ear and nose normal, oropharynx normal Neck: trachea midline, no thyromegaly normal visual inspection Respiratory: normal respiratory effort, lungs clear to auscultation no respiratory distress Cardiovascular: RRR, no murmur, no edema Gastrointestinal (Abdomen): Inspection/Auscultation: abdomen normal to inspection; abdomen not distended Musculoskeletal: no cyanosis or clubbing, extremities motor strength 5/5 Neurologic: moves all extremities and awake Psychiatric: Orientation: alert, oriented to person and cooperative Results & Data Results & Data ([facility]) Vital Signs (Past 12 Hours) Vital Signs Temp Pulse Pulse Resp BP Pulse Ox Pulse Ox 09/09/19 17:00 96 09/09/19 15:38 37.3 C 44 L 20 120/51 L 94 09/09/19 14:20 99 H 09/09/19 14:12 37 C 09/09/19 11:00 37.3 C 64 20 120/68 93 09/09/19 10:18 77 09/09/19 07:04 37.9 C H 83 21 105/71 98 PG Care Time/CCT Total # of Minutes Spent Total Time Spent with Patient: Total time spent is greater than 50% in coordination of care (as documented) at patient's floor/unit and/or counseling patient: Coding Level of Care Code 66695 Subseq Hosp Care Lvl 3 Diagnoses Symptomatic bradycardia R00.1 Cellulitis of both lower extremities L03.115; L03.116 Atrial fibrillation I48.91 Coronary artery disease I25.10 Uncontrolled type 2 diabetes mellitus with insulin therapy E11.65; Z79.4 Acute kidney injury superimposed on chronic kidney disease N17.9; N18.9 Hypothyroidism E03.9 Polyneuropathy G62.9 DVT prophylaxis Z29.9
[2019-09-09] MEDS ORDERED: DAPTOmycin 600 MG in SYRINGE 0 ML IV SCH (20:00)
[2019-09-09] MEDS ORDERED: DAPTOmycin 400 MG in SYRINGE 0 ML IV SCH (20:00)
--- NOTE | 2019-09-09 20:40 | Ultrasound Report ---
ULTRASOUND BILATERAL LOWER EXTREMITY VENOUS CLINICAL HISTORY: Lower extremity edema. COMPARISON STUDY: Bilateral lower extremity venous ultrasound dated 12/17/2008. TECHNIQUE: Real-time, grayscale, and color Doppler sonography of the deep veins of the right and left lower extremity was performed from the inguinal crease to the calf. Compression and augmentation wer e utilized. FINDINGS: There is no sonographic evidence of deep venous thrombosis identified in the right or left lower extremity. The common femoral, superficial femoral, and popliteal veins are patent and normally compressible bilaterally. The greater saphenous vein and the profunda femoris vein at the junction w ith the common femoral vein are clear in both legs. The visualized calf veins are patent bilaterally. There is no sonographic evidence of venous reflux in either leg. IMPRESSION: There is no sonographic evidence of deep venous thrombosis identified in the right or lef t lower extremity. ACT 112: Negative or not required by law. Electronically signed by: José Miguel Taylor M.D. 09/09/2019 8:39 PM
[2019-09-09] MEDS: SIMVASTATIN 40 MG TAB PO SCH (21:41)
[2019-09-10] MEDS: LEVOTHYROXINE SODIUM 137 MCG TABLET PO SCH (04:43)
[2019-09-10] MEDS: MICONAZOLE NITRATE POWDER 43 GM EXT PRN (05:00)
[2019-09-10 07:10] LABS: BUN Creatinine Ratio 14.8 (10-20); Calcium 8.8 mg/dl (8.5-10.1); Creatinine Clr Calc Pharmacy 42.5 ml/min; Est GFR (African American) 29.6; Est GFR (Non-African American) 25.6; Magnesium 2.2 mg/dl (1.8-2.4); Potassium 3.9 mmol/L (3.5-5.1)
[2019-09-10 07:17] LABS: Hematocrit (blood only) 32.7 % (37-47); Hemoglobin 10.6 g/dL (12.0-16.0); Mean Corpuscular Hemoglobin 29.3 pg (25-34); Mean Corpuscular Volume 90.3 fL (80-100); Mean Platelet Volume 11.9 fL (7.4-10.4); Platelet Count 164 K/uL (130-400); RDW Coefficient of Variation 15.6 % (11.5-14.5); RDW Standard Deviation 51.4 fL (36.4-46.3); Red Blood Count 3.62 M/uL (4.2-5.4); White Blood Count 9.69 K/uL (4.8-10.8)
[2019-09-10 07:21] LABS: Phosphorus 2.8 mg/dl (2.5-4.9); Thyroid Stimulating Hormone 0.259 uIu/ml (0.300-4.500)
[2019-09-10 07:21] LABS: Mean Corpuscular Hgb Conc 32.4 g/dL (32-36)
[2019-09-10 07:22] LABS: INR 3.1 (0.9-1.1); Prothrombin Time 30.8 Seconds (9.0-12.0)
[2019-09-10 07:36] LABS: T4 Free Thyroxine 1.3 ng/dl (0.8-1.6)
[2019-09-10] MEDS: ACETAMINOPHEN 325 MG TAB PO PRN (08:05)
[2019-09-10] MEDS: ASCORBIC ACID 500 MG TAB PO SCH (08:06)
[2019-09-10] MEDS: METOPROLOL SUCC 25MG EXT REL TAB PO SCH (08:06)
[2019-09-10] MEDS: FOLIC ACID 400 MCG TAB PO SCH (08:06)
[2019-09-10] MEDS: PYRIDOXINE HCL 50 MG TAB PO SCH (08:06)
[2019-09-10] MEDS: FLUTICASONE FUROATE 100MCG 14 PUFFS/INHALER INH SCH (08:06)
[2019-09-10] MEDS: MONTELUKAST SODIUM 10 MG TABLET PO SCH (08:07)
[2019-09-10] MEDS: MULTIVITAMIN TAB PO SCH (08:07)
[2019-09-10] MEDS: GABAPENTIN 300 MG CAP PO SCH ×3 (08:07→20:27)
[2019-09-10] MEDS: CALCIUM 600MG + VIT D 400 IU TAB PO SCH ×2 (08:07→20:27)
[2019-09-10] MEDS: INSULIN ASPART 100 UNITS/ML 3 ML PEN SC SCH ×4 (08:08→20:30)
[2019-09-10] MEDS ORDERED: DICLOFENAC SOD 1% GEL 100 GM TUBE EXT PRN (11:09)
[2019-09-10 12:18] LABS: Lyme Ab IgM w/WB Rflx Negative (Negative)
[2019-09-10 12:21] LABS: Lyme Ab IgG w/WB Rflx Negative (Negative)
[2019-09-10 12:28] LABS: Appearance Urine Clear (Clear); Bacteria Urine Automated Negative (Negative); Bilirubin Urine Negative (Negative); Blood Urine Trace (Negative); Color Urine Dark Yellow; Epithelial Cell Urine Auto >30 /lpf (0-5); Glucose Urine UA Negative (Negative); Ketones Urine Trace (Negative); Leukocyte Esterase Urine Trace (Negative); Nitrite Urine Negative (Negative); Protein Urine Negative (Negative); RBC Urine Automated 0-4 /hpf (0-4); Specific Gravity Urine 1.026 (1.000-1.030); Urobilinogen Urine Negative (Negative)
[2019-09-10 12:45] LABS: Renal Epithelial Cells Urine 0-5 /lpf (0-5)
--- NOTE | 2019-09-10 15:52 | Hospitalist Progress Note ---
Date of Service September 10, 2019 Assessment & Plan (1) Fever: Morning of 09/09, she had a fever to 38.2. Still no real focal sign except for the possible (less likely) cellulitis. - CT c/a/p on 09/07 showed no pneumonia, no other source of infection in abdomen. - UA on 09/07 & 09/09 without sign of infection - Blood cultures from 09/07 & 09/09 negative. - Lyme titre on 09/09 negative. Anaplasmosis smear also negative, though DNA PCR pending. - Could be from her hyperthyroidism (TSH suppressed on levothyroxine 137 mcg). (2) Acute kidney injury superimposed on chronic kidney disease: Creatinine 2.12 upon admission, with range 1.18-1.76. Likely from dehydration and Bactrim use. However, patient has been having significant urinary retention. >900 mL on 09/08. - Hold losartan/HCTZ and furosemide. - Stop IV fluids - Banks placed on 09/09 for continued urinary retention. - Monitor -> Cr at 1.9 today. (3) Cellulitis of both lower extremities: Was on Augmentin x 10 days, then started on Bactrim on 08/26 again without significant improvement. - Placed on daptomycin IV and Zosyn IV on admission. - On 09/08, I do not think this is cellulitis. The legs are only mildly pink, not very hot, and not tender to palpation. She reports they have never been painful or tender. - Stopped abx on 09/08. (4) Symptomatic bradycardia: HR is bouncing up and down; lots of PVCs. On inspection of telemetry, her lows (in the 40s) are just the telemetry machine not picking up extra beats. Do not think she is actually going down to the 40s. - Restarted beta-estefania on 09/09 (5) Atrial fibrillation: In afib on admission. Rates reported as low as 40s earlier, though not supported by the tele monitor. - Continue warfarin for anticoagulation - Continue beta-estefania as above (6) Coronary artery disease: No chest pain reported. - Continue statin (7) Uncontrolled type 2 diabetes mellitus with insulin therapy: A1c was 7.4% this admission. - Hold metformin and insulin NPH. - Place on Accu-Cheks before meals and at bedtime/every 6 hours, with NovoLog coverage per scale -> Sugars in the 200 range. Will tighten mealtime somewhat. (8) Hypothyroidism: TSH was 0.2 in 05/2019. Still suppressed at 0.26 this admission. - Reduced levothyroxine to 112 mcg daily on 09/09 (9) Polyneuropathy: - Continue gabapentin 600 mg p.o. 3 times daily (10) DVT prophylaxis: Warfarin - INR is 3.1 today. Admission and Anticipated Discharge Date Admission Date: September 08, 2019 Subjective Feels tired and still generally weak. Has a headache and some right-sided neck pain. Reports some subjective fever. Reports no chest pain, shortness of breath, abdominal pain, nausea, or vomiting. Physical Exam Constitutional: WD/WN, vitals as above + acute distress and + morbidly obese Eyes: EOM intact bilaterally; no conjunctival abnormality ENMT: external ear and nose normal, oropharynx normal Neck: trachea midline, no thyromegaly normal visual inspection Respiratory: normal respiratory effort, lungs clear to auscultation no respiratory distress Cardiovascular: RRR, no murmur, no edema Gastrointestinal (Abdomen): Inspection/Auscultation: abdomen normal to inspection; abdomen not distended Musculoskeletal: no cyanosis or clubbing, extremities motor strength 5/5 Neurologic: moves all extremities and awake Psychiatric: Orientation: alert, oriented to person and cooperative Results & Data Results & Data ([facility]) Vital Signs (Past 12 Hours) Vital Signs Temp Pulse Pulse Resp BP Pulse Ox Pulse Ox 09/10/19 15:09 36.8 C 61 20 131/67 100 09/10/19 13:51 95 09/10/19 10:58 36.8 C 49 L 20 141/66 H 94 09/10/19 10:00 36.9 C 69 20 104/58 L 93 09/10/19 09:15 94 H 09/10/19 06:36 38.2 C H 69 18 120/50 L 91 09/10/19 03:48 36.8 C 74 20 111/78 93 PG Care Time/CCT Total # of Minutes Spent Total Time Spent with Patient: Total time spent is greater than 50% in coordination of care (as documented) at patient's floor/unit and/or counseling patient: Coding Level of Care Code 93656 Subseq Hosp Care Lvl 3 Diagnoses Fever R50.9 Fever type: unspecified Acute kidney injury superimposed on chronic kidney disease N17.9; N18.9 Cellulitis of both lower extremities L03.115; L03.116 Symptomatic bradycardia R00.1 Atrial fibrillation I48.91 Coronary artery disease I25.10 Uncontrolled type 2 diabetes mellitus with insulin therapy E11.65; Z79.4 Hypothyroidism E03.9 Polyneuropathy G62.9 DVT prophylaxis Z29.9 (1) Fever Fever type: unspecified Qualified Code(s): R50.9 - Fever, unspecified
[2019-09-10] MEDS: ALBUT/IPRATROP 3MG/0.5MG NEB 3 ML VIAL NEB PRN (17:52)
[2019-09-10] MEDS ORDERED: FUROSEMIDE 60 MG in SYRINGE 0 ML IV STA (18:01)
[2019-09-10] MEDS: FAMOTIDINE 40 MG TABLET PO SCH (20:28)
[2019-09-10] MEDS: SIMVASTATIN 40 MG TAB PO SCH (20:29)
--- NOTE | 2019-09-10 21:40 | Electrocardiogram Report ---
Test Reason : Blood Pressure : / mmHG Vent. Rate : 091 BPM Atrial Rate : 091 BPM P-R Int : 000 ms QRS Dur : 110 ms QT Int : 346 ms P-R-T Axes : 000 101 267 degrees QTc Int : 425 ms Probable Atrial fibrillation with premature ventricular or aberrantly conducted complexes in a patter n of bigeminy Right bundle branch block Anterior infarct Inferior infarct Abnormal ECG When compared with ECG of 09-SEP-2019 07:10, No significant change Confirmed by Homar Gaming ([id number]) on 09/10/2019 9:40:03 PM Referred By: REFERRED SELF Confirmed By:Homar Gaming
--- NOTE | 2019-09-11 00:59 | Communication Note ---
Date of Service: September 11, 2019 Notified pt delirious overnight, confused and taking off her bipap periodically. Able to be re-oriented, and appeased without medical intervention/one-to-one. 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
[2019-09-11] MEDS: LEVOTHYROXINE SODIUM 112 MCG TABLET PO SCH (05:01)
[2019-09-11] MEDS: METOPROLOL SUCC 25MG EXT REL TAB PO SCH (08:21)
[2019-09-11] MEDS: MULTIVITAMIN TAB PO SCH (08:21)
[2019-09-11] MEDS: MONTELUKAST SODIUM 10 MG TABLET PO SCH (08:21)
[2019-09-11] MEDS: FOLIC ACID 400 MCG TAB PO SCH (08:21)
[2019-09-11] MEDS: GABAPENTIN 300 MG CAP PO SCH ×3 (08:21→19:37)
[2019-09-11] MEDS: CALCIUM 600MG + VIT D 400 IU TAB PO SCH ×2 (08:22→19:37)
[2019-09-11] MEDS: PYRIDOXINE HCL 50 MG TAB PO SCH (08:23)
[2019-09-11] MEDS: FLUTICASONE FUROATE 100MCG 14 PUFFS/INHALER INH SCH (08:23)
[2019-09-11] MEDS: ASCORBIC ACID 500 MG TAB PO SCH (08:23)
[2019-09-11] MEDS: INSULIN ASPART 100 UNITS/ML 3 ML PEN SC SCH ×4 (08:25→20:15)
--- NOTE | 2019-09-11 08:43 | XRay Report ---
XR chest 1V portable CLINICAL HISTORY: Fever, shortness of breath dyspnea COMPARISON STUDY: 09/08/2019 FINDINGS: Stable moderate cardiomegaly. Increased prominence of the pulmonary vasculature. Potential superimposed left basilar infiltrate. IMPRESSION: 1. Developing infiltrate left base. 2. Developing components of congestive heart failure ACT 112: Negative or not required by law. The above report was generated using voice recognition software. It may contain grammatical, syntax or spelling errors. Electronically signed by: Gaurang Christopher M.D. 09/11/2019 8:41 AM
[2019-09-11] MEDS ORDERED: FUROSEMIDE 60 MG in SYRINGE 0 ML IV SCH (10:05)
[2019-09-11 11:06] LABS: Mean Corpuscular Hemoglobin 28.5 pg (25-34); Mean Corpuscular Hgb Conc 31.3 g/dL (32-36); Mean Corpuscular Volume 91.2 fL (80-100); Mean Platelet Volume 12.3 fL (7.4-10.4); Platelet Count 155 K/uL (130-400); RDW Coefficient of Variation 15.3 % (11.5-14.5); RDW Standard Deviation 51.1 fL (36.4-46.3); Red Blood Count 3.51 M/uL (4.2-5.4); White Blood Count 7.88 K/uL (4.8-10.8)
[2019-09-11 11:14] LABS: INR 1.9 (0.9-1.1); Prothrombin Time 19.3 Seconds (9.0-12.0)
[2019-09-11 11:31] LABS: BUN Creatinine Ratio 21.5 (10-20); Calcium 9.2 mg/dl (8.5-10.1); Creatinine Clr Calc Pharmacy 42.6 ml/min; Est GFR (African American) 31.4; Est GFR (Non-African American) 27.1; Magnesium 2.4 mg/dl (1.8-2.4)
[2019-09-11 11:36] LABS: Phosphorus 2.6 mg/dl (2.5-4.9)
[2019-09-11 12:31] LABS: Adenovirus PCR Not Detected (NotDetected); Bordetella parapertussis PCR Not Detected (NotDetected); Bordetella pertussis PCR Not Detected (NotDetected); Chlamydia pneumoniae PCR Not Detected (NotDetected); Coronavirus 229E PCR Not Detected (NotDetected); Coronavirus HKU1 PCR Not Detected (NotDetected); Coronavirus NL63 PCR Not Detected (NotDetected); Coronavirus OC43PCR Not Detected (NotDetected); Human Metapneumovirus PCR Not Detected (NotDetected); Influenza A PCR Not Detected (NotDetected); Influenza B PCR Not Detected (NotDetected); Mycoplasma pneumoniae PCR Not Detected (NotDetected); Parainfluenza Virus 1 PCR Not Detected (NotDetected); Parainfluenza Virus 2 PCR Not Detected (NotDetected); Parainfluenza Virus 3 PCR Not Detected (NotDetected); Parainfluenza Virus 4 PCR Not Detected (NotDetected); Respiratory Syncytial VirusPCR Not Detected (NotDetected); Rhinovirus/Enterovirus PCR Not Detected (NotDetected)
--- NOTE | 2019-09-11 15:35 | Hospitalist Progress Note ---
Date of Service September 11, 2019 Assessment & Plan (1) Fever: Morning of 09/09, she had a fever to 38.2. Still no real focal sign except for the possible (less likely) cellulitis. - CT c/a/p on 09/07 showed no pneumonia, no other source of infection in abdomen. - UA on 09/07 & 09/09 without sign of infection - Blood cultures from 09/07 & 09/09 negative. - Lyme titre on 09/09 negative. Anaplasmosis smear also negative, though DNA PCR pending. - Could be from her hyperthyroidism (TSH suppressed on levothyroxine 137 mcg). - No further fevers as of 09/10. CXR shows possible left base infiltrate, but nothing definitive. BioFire PCR negative. (2) Acute kidney injury superimposed on chronic kidney disease: Creatinine 2.12 upon admission, with range 1.18-1.76. Likely from dehydration and Bactrim use. However, patient has been having significant ur inary retention. >900 mL on 09/08. - Hold losartan/HCTZ - Banks placed on 09/09 for continued urinary retention. - Restarted Lasix on 09/09 for concern for mild volume overload. - Monitor -> Cr at 1.8 today. (3) Cellulitis of both lower extremities: Was on Augmentin x 10 days, then started on Bactrim on 08/26 again without significant improvement. - Placed on daptomycin IV and Zosyn IV on admission. - On 09/08, I do not think this is cellulitis. The legs are only mildly pink, not very hot, and not tender to palpation. She reports they have never been painful or tender. - Stopped abx on 09/08. As of 09/10, legs remain non-tender, non-painful, and mildly pink. I think this is venous stasis rather than infection. (4) Symptomatic bradycardia: HR is bouncing up and down; lots of PVCs. On inspection of telemetry, her lows (in the 40s) are just the telemetry machine not picking up extra beats. Do not think she is actually going down to the 40s. - Restarted beta-estefania on 09/09 (5) Atrial fibrillation: In afib on admission. Rates reported as low as 40s earlier, though not supported by the tele monitor. - Continue warfarin for anticoagulation - INR down today. Restarted warfarin. - Continue beta-estefania as above (6) Coronary artery disease: No chest pain reported. - Continue statin (7) Uncontrolled type 2 diabetes mellitus with insulin therapy: A1c was 7.4% this admission. - Hold metformin and insulin NPH. - Place on Accu-Cheks before meals and at bedtime/every 6 hours, with NovoLog coverage per scale -> Sugars in the 200 range. Tightened mealtime. - On 09/10, added Lantus 40 units HS as she was consistently running in the 200s. (8) Hypothyroidism: TSH was 0.2 in 05/2019. Still suppressed at 0.26 this admission. - Reduced levothyroxine to 112 mcg daily on 09/09 (9) Polyneuropathy: - Continue gabapentin 600 mg p.o. 3 times daily (10) DVT prophylaxis: Warfarin - INR is 1.9 today. Restarted warfarin. Admission and Anticipated Discharge Date Admission Date: September 08, 2019 Subjective No acute concerns today. She is overall doing well. No breathing issues today. Legs are stable. Some swelling and pinkness, but certainly not worsening. Reports no fevers/chills, chest pain, shortness of breath, abdominal pain, nausea, or vomiting. Physical Exam Constitutional: WD/WN, vitals as above + acute distress and + morbidly obese Eyes: EOM intact bilaterally; no conjunctival abnormality ENMT: external ear and nose normal, oropharynx normal Neck: trachea midline, no thyromegaly normal visual inspection Respiratory: normal respiratory effort, lungs clear to auscultation no respiratory distress Cardiovascular: RRR, no murmur, no edema Gastrointestinal (Abdomen): Inspection/Auscultation: abdomen normal to inspection; abdomen not distended Musculoskeletal: no cyanosis or clubbing, extremities motor strength 5/5 Neurologic: moves all extremities and awake Psychiatric: Orientation: alert, oriented to person and cooperative Results & Data Results & Data ([facility]) Vital Signs (Past 12 Hours) Vital Signs Temp Pulse Pulse Resp BP Pulse Ox 09/11/19 15:00 63 09/11/19 11:20 36.6 C 66 18 117/77 94 09/11/19 08:20 82 09/11/19 06:25 36.9 C 63 19 128/55 L 95 PG Care Time/CCT Total # of Minutes Spent Total Time Spent with Patient: Total time spent is greater than 50% in coordination of care (as documented) at patient's floor/unit and/or counseling patient: Coding Level of Care Code 08850 Subseq Hosp Care Lvl 3 Diagnoses Fever R50.9 Fever type: unspecified Acute kidney injury superimposed on chronic kidney disease N17.9; N18.9 Cellulitis of both lower extremities L03.115; L03.116 Symptomatic bradycardia R00.1 Atrial fibrillation I48.91 Coronary artery disease I25.10 Uncontrolled type 2 diabetes mellitus with insulin therapy E11.65; Z79.4 Hypothyroidism E03.9 Polyneuropathy G62.9 DVT prophylaxis Z29.9 (1) Fever Fever type: unspecified Qualified Code(s): R50.9 - Fever, unspecified
[2019-09-11] MEDS ORDERED: WARFARIN SOD 2.5 MG TAB PO SCH (16:00)
[2019-09-11] MEDS: SIMVASTATIN 40 MG TAB PO SCH (19:36)
[2019-09-11] MEDS: FAMOTIDINE 40 MG TABLET PO SCH (19:36)
[2019-09-11] MEDS: ALBUT/IPRATROP 3MG/0.5MG NEB 3 ML VIAL NEB PRN (19:49)
[2019-09-11] MEDS: INSULIN GLARGINE SOLOSTAR 100 UNITS/ML 3 ML PEN SC SCH (20:15)
[2019-09-12] MEDS: LEVOTHYROXINE SODIUM 112 MCG TABLET PO SCH (04:00)
[2019-09-12 08:44] LABS: Hematocrit (blood only) 32.4 % (37-47); Mean Corpuscular Hemoglobin 27.9 pg (25-34); Mean Corpuscular Hgb Conc 30.9 g/dL (32-36); Mean Corpuscular Volume 90.3 fL (80-100); Mean Platelet Volume 12.4 fL (7.4-10.4); Platelet Count 169 K/uL (130-400); RDW Coefficient of Variation 15.2 % (11.5-14.5); RDW Standard Deviation 50.3 fL (36.4-46.3); Red Blood Count 3.59 M/uL (4.2-5.4); White Blood Count 7.42 K/uL (4.8-10.8)
[2019-09-12 08:52] LABS: INR 1.6 (0.9-1.1); Prothrombin Time 16.2 Seconds (9.0-12.0)
[2019-09-12 09:15] LABS: BUN Creatinine Ratio 27.5 (10-20); Calcium 9.5 mg/dl (8.5-10.1); Est GFR (African American) 36.4; Est GFR (Non-African American) 31.4; Magnesium 2.4 mg/dl (1.8-2.4); Potassium 3.7 mmol/L (3.5-5.1)
[2019-09-12] MEDS: METOPROLOL SUCC 25MG EXT REL TAB PO SCH (09:15)
[2019-09-12] MEDS: MONTELUKAST SODIUM 10 MG TABLET PO SCH (09:15)
[2019-09-12] MEDS: GABAPENTIN 300 MG CAP PO SCH ×3 (09:16→20:42)
[2019-09-12] MEDS: CALCIUM 600MG + VIT D 400 IU TAB PO SCH ×2 (09:16→20:42)
[2019-09-12] MEDS: FOLIC ACID 400 MCG TAB PO SCH (09:18)
[2019-09-12] MEDS: PYRIDOXINE HCL 50 MG TAB PO SCH (09:18)
[2019-09-12] MEDS: FLUTICASONE FUROATE 100MCG 14 PUFFS/INHALER INH SCH (09:19)
[2019-09-12] MEDS: MULTIVITAMIN TAB PO SCH (09:19)
[2019-09-12] MEDS: ASCORBIC ACID 500 MG TAB PO SCH (09:21)
[2019-09-12] MEDS: INSULIN ASPART 100 UNITS/ML 3 ML PEN SC SCH ×4 (09:21→20:44)
[2019-09-12] MEDS: FUROSEMIDE 60 MG in SYRINGE 0 ML IV SCH (12:25)
--- NOTE | 2019-09-12 14:23 | Hospitalist Progress Note ---
Date of Service September 12, 2019 Assessment & Plan (1) Fever: Morning of 09/09, she had a fever to 38.2. Still no real focal sign except for the possible (less likely) cellulitis. - CT c/a/p on 09/07 showed no pneumonia, no other source of infection in abdomen. - UA on 09/07 & 09/09 without sign of infection - Blood cultures from 09/07 & 09/09 negative. - Lyme titre on 09/09 negative. Anaplasmosis smear also negative, though DNA PCR pending. - Could be from her hyperthyroidism (TSH suppressed on levothyroxine 137 mcg). - No further fevers after 09/09. CXR on 09/10 showed possible left base infiltrate, but nothing definitive. BioFire PCR negative. At present, showing no signs of infection. (2) Acute kidney injury superimposed on chronic kidney disease: Creatinine 2.12 upon admission, with range 1.18-1.76. Likely from dehydration and Bactrim use. However, patient has been having significant urinary retention. >900 mL on 09/08. - Hold losartan/HCTZ - Banks placed on 09/09 for continued urinary retention. - Restarted Lasix on 09/09 for concern for mild volume overload. - Monitor -> Cr at 1.6 today. (3) Cellulitis of both lower extremities: Was on Augmentin x 10 days, then started on Bactrim on 08/26 again without significant improvement. - Placed on daptomycin IV and Zosyn IV on admission. - On 09/08, I do not think this is cellulitis. The legs are only mildly pink, not very hot, and not tender to palpation. She reports they have never been painful or tender. - Stopped abx on 09/08. As of 09/11, legs remain non-tender, non-painful, and mildly pink. I think this is venous stasis rather than infection. (4) Symptomatic bradycardia: HR is bouncing up and down; lots of PVCs. On inspection of telemetry, her lows (in the 40s) are just the telemetry machine not picking up extra beats. Do not think she is actually going down to the 40s. - Restarted beta-estefania on 09/09 (5) Atrial fibrillation: In afib on admission. Rates reported as low as 40s earlier, though not supported by the tele monitor. - Continue warfarin for anticoagulation - INR down today. It is 1.6. Restarted warfarin. - Continue beta-estefania as above (6) Coronary artery disease: No chest pain reported. - Continue statin (7) Uncontrolled type 2 diabetes mellitus with insulin therapy: A1c was 7.4% this admission. - Hold metformin and insulin NPH. - Place on Accu-Cheks before meals and at bedtime/every 6 hours, with NovoLog coverage per scale -> Sugars in the 200 range. Tightened mealtime. - On 09/10, added Lantus 40 units HS as she was consistently running in the high 200s. (8) Hypothyroidism: TSH was 0.2 in 05/2019. Still suppressed at 0.26 this admission. - Reduced levothyroxine to 112 mcg daily on 09/09 (9) Polyneuropathy: - Continue gabapentin 600 mg p.o. 3 times daily (10) DVT prophylaxis: Warfarin - INR is 1.6 today. Restarted warfarin on 09/10. Admission and Anticipated Discharge Date Admission Date: September 08, 2019 Subjective Feels well today. Breathing comfortably. Legs are stable. Reports no fevers/chills, chest pain, shortness of breath, abdominal pain, nausea, or vomiting. Physical Exam Constitutional: WD/WN, vitals as above + morbidly obese; no acute distress Eyes: EOM intact bilaterally; no conjunctival abnormality ENMT: external ear and nose normal, oropharynx normal Neck: trachea midline, no thyromegaly normal visual inspection Respiratory: normal respiratory effort, lungs clear to auscultation no respiratory distress Cardiovascular: RRR, no murmur, no edema Gastrointestinal (Abdomen): Inspection/Auscultation: abdomen normal to inspection; abdomen not distended Musculoskeletal: no cyanosis or clubbing, extremities motor strength 5/5 Neurologic: moves all extremities and awake Psychiatric: Orientation: alert, oriented to person and cooperative Results & Data Results & Data ([facility]) Vital Signs (Past 12 Hours) Vital Signs Temp Pulse Pulse Resp BP Pulse Ox 09/12/19 11:46 36.7 C 73 17 92/57 L 96 09/12/19 08:00 68 09/12/19 03:27 59 L 16 92 09/12/19 03:18 37.1 C 61 20 117/50 L 93 PG Care Time/CCT Total # of Minutes Spent Total Time Spent with Patient: Total time spent is greater than 50% in coordination of care (as documented) at patient's floor/unit and/or counseling patient: Coding Level of Care Code 25186 Subseq Hosp Care Lvl 3 Diagnoses Fever R50.9 Fever type: unspecified Acute kidney injury superimposed on chronic kidney disease N17.9; N18.9 Cellulitis of both lower extremities L03.115; L03.116 Symptomatic bradycardia R00.1 Atrial fibrillation I48.91 Coronary artery disease I25.10 Uncontrolled type 2 diabetes mellitus with insulin therapy E11.65; Z79.4 Hypothyroidism E03.9 Polyneuropathy G62.9 DVT prophylaxis Z29.9 (1) Fever Fever type: unspecified Qualified Code(s): R50.9 - Fever, unspecified
[2019-09-12] MEDS: WARFARIN SOD 5 MG TAB PO SCH (16:30)
[2019-09-12] MEDS: FAMOTIDINE 40 MG TABLET PO SCH (20:42)
[2019-09-12] MEDS: INSULIN GLARGINE SOLOSTAR 100 UNITS/ML 3 ML PEN SC SCH (20:42)
[2019-09-12] MEDS: SIMVASTATIN 40 MG TAB PO SCH (20:42)
[2019-09-13] MEDS: LEVOTHYROXINE SODIUM 112 MCG TABLET PO SCH (04:47)
[2019-09-13 07:58] LABS: Hematocrit (blood only) 32.9 % (37-47); Hemoglobin 10.4 g/dL (12.0-16.0); Mean Corpuscular Hgb Conc 31.6 g/dL (32-36); Mean Corpuscular Volume 88.7 fL (80-100); Mean Platelet Volume 11.9 fL (7.4-10.4); Platelet Count 183 K/uL (130-400); RDW Standard Deviation 48.7 fL (36.4-46.3); Red Blood Count 3.71 M/uL (4.2-5.4); White Blood Count 7.13 K/uL (4.8-10.8)
[2019-09-13 08:48] LABS: BUN Creatinine Ratio 29.9 (10-20); Calcium 9.8 mg/dl (8.5-10.1); Creatinine Clr Calc Pharmacy 71.3 ml/min; Est GFR (African American) 53.4; Magnesium 2.1 mg/dl (1.8-2.4); Potassium 3.4 mmol/L (3.5-5.1)
[2019-09-13] MEDS: MULTIVITAMIN TAB PO SCH (09:06)
[2019-09-13] MEDS: FLUTICASONE FUROATE 100MCG 14 PUFFS/INHALER INH SCH (09:06)
[2019-09-13] MEDS: PYRIDOXINE HCL 50 MG TAB PO SCH (09:07)
[2019-09-13] MEDS: FOLIC ACID 400 MCG TAB PO SCH (09:07)
[2019-09-13] MEDS: ASCORBIC ACID 500 MG TAB PO SCH (09:08)
[2019-09-13] MEDS: MONTELUKAST SODIUM 10 MG TABLET PO SCH (09:08)
[2019-09-13] MEDS: METOPROLOL SUCC 25MG EXT REL TAB PO SCH (09:09)
[2019-09-13] MEDS: GABAPENTIN 300 MG CAP PO SCH ×2 (09:09→13:08)
[2019-09-13] MEDS: CALCIUM 600MG + VIT D 400 IU TAB PO SCH (09:10)
[2019-09-13] MEDS: INSULIN ASPART 100 UNITS/ML 3 ML PEN SC SCH ×2 (09:11→13:09)
[2019-09-13] MEDS: FUROSEMIDE 60 MG in SYRINGE 0 ML IV SCH (13:24)
[2019-09-13] MEDS: WARFARIN SOD 5 MG TAB PO SCH (15:33)
--- NOTE | 2019-09-13 16:36 | Discharge Summary ---
Date of Service September 13, 2019 Admission HPI Per Admitting Provider The patient is a 74-year-old female with a past medical history including trifascicular bundle branch block, atrial fibrillation, CKD stage III, endometrial cancer, CAD, asthma, essential tremor, thrombophlebitis of deep veins of upper extremities, ventricular bigeminy, chronic diastolic heart failure, uncontrolled obese mellitus type II, hyperlipidemia, hypertension, hypothyroidism and polyneuropathy. She presents to the emergency department with nausea and vomiting, symptoms of dehydration, and had an episode 2 days ago where she fell and struck the right side of her face. She does not remember if she lost consciousness. She denies any recent travel or sick contacts, including exposures to COVID-19. Principal Diagnosis Acute kidney injury from urinary retention Possible hyperthyroidism Discharge Exam Constitutional WD/WN, vitals as above + morbidly obese; no acute distress Eyes EOM intact bilaterally; no conjunctival abnormality ENMT external ear and nose normal, oropharynx normal Neck trachea midline, no thyromegaly normal visual inspection Respiratory normal respiratory effort, lungs clear to auscultation no respiratory distress Cardiovascular RRR, no murmur, no edema Gastrointestinal (Abdomen) Inspection/Auscultation: abdomen normal to inspection; abdomen not distended Musculoskeletal no cyanosis or clubbing, extremities motor strength 5/5 Neurologic moves all extremities and awake Psychiatric Orientation: alert, oriented to person and cooperative Discharge Data Allergies Allergy/AdvReac Type Severity Reaction Status Date / Time adhesive Allergy Severe blisters Verified 09/08/19 17:17 asparagus Allergy Intermediate RASH HIVES Verified 09/08/19 17:17 bumetanide Allergy Intermediate RASH Verified 09/08/19 17:17 cantaloupe Allergy Intermediate Rash Verified 09/09/19 12:42 melon Allergy Intermediate Rash Verified 09/13/19 09:41 mold Allergy Intermediate nasal Verified 09/08/19 17:17 congestion strawberry Allergy Intermediate HIVES Verified 09/08/19 17:17 cetirizine Allergy Mild rash, H/A Verified 09/08/19 17:17 pollen extracts Allergy Unknown Unknown Verified 09/08/19 17:17 Consultations 09/08/19 21:01 ED Decision to Admit Stat 09/08/19 22:09 Consult Case Management - Discharge Planning Routine Ordered Studies 09/08/19 15:48 CT cervical spine wo con Stat CT facial bones wo con Stat CT head/brain wo con Stat 09/08/19 16:45 CT abd pelvis wo con Stat 09/08/19 17:14 CT chest wo con Stat 09/09/19 18:10 US venous reflux LE BI Routine Hospital Course (1) Fever: Morning of 09/09, she had a fever to 38.2. Still no real focal sign except for the possible (less likely) cellulitis. - CT c/a/p on 09/07 showed no pneumonia, no other source of infection in abdomen. - UA on 09/07 & 09/09 without sign of infection - Blood cultures from 09/07 & 09/09 negative. - Lyme titre on 09/09 negative. Anaplasmosis smear also negative, though DNA PCR pending. - Could be from her hyperthyroidism (TSH suppressed on levothyroxine 137 mcg). Lowered dose to 112 mcg. - No further fevers after 09/09. CXR on 09/10 showed possible left base infiltrate, but nothing definitive. BioFire PCR negative. At present, showing no signs of infection. (2) Acute kidney injury superimposed on chronic kidney disease: Creatinine 2.12 upon admission, with range 1.18-1.76. Likely from dehydration, Bactrim use. Patient also had significant urinary retention. >900 mL on 09/08. - Held losartan/HCTZ -> Hold on discharge. - Banks placed on 09/09 for continued urinary retention. - Restarted Lasix on 09/09 for concern for mild volume overload. - Monitor -> Cr at 1.2 today. - Banks removed on 09/12 per patient request. PVR showed only 150 mL. Will start tamsulosin HS; however, occasional PVR should be checked at [facility]. If she re -retains, will need Banks and urology follow up. (3) Cellulitis of both lower extremities: Was on Augmentin x 10 days, then started on Bactrim on 08/26 again without significant improvement. - Placed on daptomycin IV and Zosyn IV on admission. - Stopped abx on 09/08. As of 09/12, legs remain non-tender, non-painful, and mildly pink. I think this is venous stasis rather than infection. -She will need to use her lymphedema socks and shoes. Follow up with [facility] on discharge. (4) Symptomatic bradycardia: HR is bouncing up and down; lots of PVCs. On inspection of telemetry, her lows (in the 40s) are just the telemetry machine not picking up extra beats. Do not think she is actually going down to the 40s. BP stable. - Restarted beta-estefania on 09/09 (5) Atrial fibrillation: In afib on admission. Rates reported as low as 40s earlier, though not supported by the tele monitor. - Continue warfarin for anticoagulation - INR down to 1.6 on 09/11. Restarted warfarin. Recheck INR in 2-3 days. - Continue beta-estefania as above (6) Coronary artery disease: No chest pain reported. - Continue statin (7) Uncontrolled type 2 diabetes mellitus with insulin therapy: A1c was 7.4% this admission. - Hold metformin and insulin NPH. - Place on Accu-Cheks before meals and at bedtime/every 6 hours, with NovoLog coverage per scale -> Sugars in the 200 range. Tightened mealtime. - On 09/10, added Lantus 40 units HS as she was consistently running in the high 200s. - Still high on 09/11 & 09/12. Switched to Lantus 30 units SQ BID on discharge to better control sugars. (8) Hypothyroidism: TSH was 0.2 in 05/2019. Still suppressed at 0.26 this admission. - Reduced levothyroxine to 112 mcg daily on 09/09 (9) Polyneuropathy: - Continue gabapentin 600 mg p.o. 3 times daily (10) DVT prophylaxis: Warfarin - INR is 1.6 today. Restarted warfarin on 09/10. Total Time Total Time Spent Total Time Spent (In Minutes): 35 Discharge Plan Discharge Items Patient Disposition: Transfer Inpatient Rehab Fac Reason For Visit: SEPSIS Discharge Diagnosis: Urinary retention causing kidney injury Activity: Resume your previous activity Non-emergency contact: Primary Care Provider Call non-emergency contact if: your symptoms worsen and your temperature is above 101 Follow-up/Referrals: Lencho Rodriguez III, MD [Primary Care Provider] - Diet: Carb Consistent or DM2 and Low Sodium (2gm) Addtl Attending Provider Instructions: Ms. Milner was admitted for symptoms of weakness and fatigue. She was found to have a mild kidney injury with Cr up to 2.12. She was found to have urinary retention with >1L retained on initial straight cath, and then >300 mL when Banks was inserted. She had a Banks catheter in place until the day of discharge when she asked that it come out to do a voiding trial. Occasional bladder scans should be done to make sure she is voiding appropriately. I will start Flomax for her. If she retains again, she will likely need the Banks replaced and to see Urology in the Clinic. Other than the kidney injury, there was concern for cellulitis; however, I felt this was more related to her chronic lymphedema. She was not on any antibiotics from 09/08 onward without any noticeable change in her leg swelling, any tenderness, any change in the warmth, or pinkish hue of her legs. Again, I do not think this is cellulitis as it has remained stable for 4 days off any antibiotics. She had her Lasix held initially because we were worried about her kidneys; however, on 09/10, she had some increased shortness of breath, and it was restarted at that time. Since then, her breathing has been normal on room air and her O2 sat has remained stable. She did have 2 fevers in the hospital, one on admission and one on 09/09. None since then. Cultures have been negative, and CXR only showed a possible mild infiltrate at the left base. Given her resolution of the fevers, return to baseline breathing from Lasix, and lack of other infectious symptoms, this was thought to be atelectasis. Another possibility is that she was mildly hyperth yroid from her Synthroid. This dose was cut to 112 mcg PO daily and TSH/FT4 should be check in 6-8 weeks. Her INR was slightly lower here, and was only 1.6 on discharge. She was given an extra 2.5 mg of warfarin on 09/12, and her INR should be check in 3-4 days. Her NPH was switched to Lantus while inpatient. This can be continued at [facility]. Her BP was normal on just her Lasix, so her losartan-HCTZ was held to prevent overdiuresis while she had the LOU. BP can be monitored and a new BP med started as needed. Pending Studies at Discharge: Yes Studies:: Anaplasma DNA PCR Stand-Alone Forms: My [facility] Skilled Items Patient informed of condition?: Yes DNR: No Discharge Level of Care: Acute rehab Communicable Disease: No Discharge Prognosis: Improving Lines: None Urinary Catheter: No Medications and DC Order Prescriptions: New Lantus Solostar U-100 Insulin 100 unit/mL (3 mL) Insulin Pen 30 unit SC BID Qty: 1 RF: 0 tamsulosin 0.4 mg capsule 0.4 mg PO HS Qty: 1 RF: 0 Continued montelukast [Singulair] 10 mg tablet 10 mg PO DAILY Qty: 90 RF: 3 simvastatin [Zocor] 40 mg tablet 40 mg PO HS Qty: 90 RF: 3 metformin 500 mg tablet 500 mg PO BID Qty: 180 RF: 3 beclomethasone dipropionate 40 mcg/actuation HFA aerosol breath activated 2 puffs Inhalation BID Qty: 10.6 RF: 3 potassium chloride 20 mEq tablet extended release 20 meq PO BID Qty: 180 RF: 3 metoprolol succinate 25 mg tablet extended release 24 hr 25 mg PO DAILY Qty: 90 RF: 3 gabapentin 300 mg capsule 600 mg PO TID Qty: 180 RF: 3 cyanocobalamin (vitamin B-12) [Vitamin B-12] 500 mcg tablet 500 mcg PO DAILY RF: 0 Novolog U-100 Insulin aspart 100 unit/mL solution 1 sliding scale dose SQ USEASDIRECTD RF: 0 (DME) OneTouch Ultra Blue Test Strip strip See Dose Instructions .ROUTE .MEDSUPPLY Qty: 10 RF: 0 (DME) insulin syringe-needle U-100 [BD Insulin Syringe Ultra-Fine] 1 mL 31 gauge x 5/16 syringe See Dose Instructions .ROUTE .MEDSUPPLY Qty: 100 RF: 11 furosemide 80 mg tablet 80 mg PO DAILY Qty: 180 RF: 3 albuterol sulfate [ProAir HFA] 90 mcg/actuation HFA aerosol inhaler 2 puff INHALATION QID PRN (Reason: SHORT OF BREATH) Qty: 18 RF: 5 multivitamin Tablet 1 tab PO DAILY RF: 0 ascorbic acid (vitamin C) [Vitamin C With Griselda Hips] 500 mg Tablet 1,000 mg PO DAILY RF: 0 mupirocin 2 % Ointment 1 applic TOPICAL UD RF: 0 pyridoxine (vitamin B6) [Vitamin B-6] 100 mg Tablet 100 mg PO DAILY RF: 0 Caltrate 600 plus D 600 mg (1,500 mg)-800 unit Tablet,Chewable 1 tab PO BID RF: 0 olopatadine 0.2 % drops 1 drp ophthalmic (eye) BID PRN (Reason: NEEDED) RF: 0 folic acid 800 mcg tablet 800 mcg PO DAILY RF: 0 warfarin [Coumadin] 5 mg tablet 2.5 mg PO 3XWK RF: 0 famotidine 20 mg tablet 40 mg PO HS RF: 0 warfarin 5 mg tablet 5 mg PO 4XWK RF: 0 Changed levothyroxine [Synthroid] 137 mcg tablet 112 mcg PO QAM Qty: 90 RF: 3 Discontinued Novolin N NPH U-100 Insulin 100 unit/mL suspension 50 unit SUBCUT .COMPLEX Qty: 90 RF: 3 losartan-hydrochlorothiazide [Hyzaar] 100-25 mg tablet 1 tab PO DAILY RF: 0 sulfamethoxazole-trimethoprim [Bactrim DS] 800-160 mg tablet 1 tab PO BID Qty: 20 RF: 1 azelastine 137 mcg (0.1 %) Aerosol,[place] 2 spray INTRANASAL Q12H PRN (Reason: NEEDED) RF: 0 glucosamine-chondroitin 250-200 mg Tablet 1 tab PO BID RF: 0 Discharge Orders: Discharge Order (Routine); Ordered 09/13/19 Ordered By: Sean Miles Admission Data Admit Date/Time: 09/08/19 20:19 Attending Provider: Sean Miles Admit Provider: Darron Lee Primary Care Provider: Lencho Rodriguez III Other Providers: Sean Miles ; Darron Lee ; [facility] Other Interventions: Discharge Summary Assessment (RN) Last Done: 09/13/19 15:49 Coding Level of Care Code D/C Day Management >30 mins Diagnoses Fever R50.9 Fever type: unspecified Acute kidney injury superimposed on chronic kidney disease N17.9; N18.9 Cellulitis of both lower extremities L03.115; L03.116 Symptomatic bradycardia R00.1 Atrial fibrillation I48.91 Coronary artery disease I25.10 Uncontrolled type 2 diabetes mellitus with insulin therapy E11.65; Z79.4 Hypothyroidism E03.9 Polyneuropathy G62.9 DVT prophylaxis Z29.9
--- NOTE | 2019-09-21 13:55 | Coding Query ---
CODING QUERY FOR UNCONTROLLED DIABETES To promote full compliance with coding requirements relating to patient care, provider participation is requested in all cases of video production specialist uncertainty. Please assist us with the question(s) below: Coding Question: The term uncontrolled Diabetes was used throughout the record. To be able to code this diagnosis properly, could you please clarify the diagnosis below: ( ) Uncontrolled Diabetes meaning hypoglycemia ( x ) Uncontrolled Diabetes meaning hyperglycemia ( ) Other (please specify) Principal Diagnosis: "that condition established after study, to be chiefly responsible for occasioning the admission of the patient to the hospital for care." Co-Existing Principal Diagnosis: "when two or more diagnoses equally meet the criteria for principal diagnosis as determined by the circumstances of admission, diagnostic work up, and/or therapy provided, and the Alphabetic Index, Tabular List, or another coding guideline does not provide sequencing direction, any one of the diagnoses may be sequenced first." "When the physician has documented what appears to be a current diagnosis in the body of the record, but has not included the diagnosis in the final diagnostic statement, the physician should be asked whether the diagnosis should be added." (Source Coding Clinic 2 QTR90. p3-4) [facility]
== END 2019-09-13 17:13 | DRG 683 ==
LOC: ED 15:16 → 2W 20:19 → SUATTDRO 20:19 → 2W 21:34

== ENCOUNTER 2024-04-21 11:19 | Inpatient (IN) ==
--- NOTE | 2024-04-21 11:33 | Emergency Department Note ---
Impression & Plan Generalized weakness, Acute UTI (urinary tract infection), Fall from standing, Elevated troponin, Contusion of face, Hematoma of face, Laceration of face, Laceration of knee, right ED Provider Note HISTORY OF PRESENT ILLNESS: Patient is a 78-year-old female presenting after a fall from standing. Patient reports that she fell sometime last night. She is unclear of the events leading up to her fall, but she is adamant that she did not pass out. She is unsure if she slipped and fell. She was unable to get up off the floor by herself and laid on the floor last night until EMS could be called this morning. On arrival to the ER, she is currently complaining of right facial pain. She is on Eliquis for history of A-fib. Tetanus is not up-to-date. Denies any changes in vision. Denies any numbness or tingling or weakness in extremities. Denies any chest pain or shortness of breath. Denies any abdominal pain. ROS: as above PHYSICAL EXAM: Constitutional: Patient appears in no acute distress. Morbidly obese HENT: Head: Normocephalic. Patient noted to have extensive ecchymosis and swelling to the right periorbital region. Noted to have a 1 centimeter laceration to the right lateral eyebrow region. Eyes: EOMI, PERRL. Pupils are 3 and reactive bilaterally. Mouth/Throat: Mucous membranes moist. Neck: Trachea midline. Neck supple. No midline cervical spine tenderness to palpation. Cardiovascular: Irregular rhythm. No murmurs, rubs or gallops. Intact distal pulses. Pulmonary/Chest: No respiratory distress. Breath sounds clear and equal bilaterally. No wheezes or rales. No chest wall tenderness to palpation. Abdominal: Abdomen soft, no tenderness, rebound or guarding. Musculoskeletal: No tenderness or deformity noted. Lymphedema bilateral lower extremities. Patient noted to have bilateral erythema to the anterior tibial region extending from the knees to the ankles. Skin: Warm and dry. Abrasions to bilateral knees. 3 inch linear laceration to right knee. Neurological: Alert and keenly responsive. CN II-XII grossly intact, moving all extremities equally and fully. MDM: - Vitals signs showed hypertension. ABCs intact. - History obtained via patient. History as above. - Chronic conditions affecting care: HTN; HLD; CAD; hypothyroidism; CHF - Differential diagnoses include, but are not limited to: intracranial hemorrhage; skull fracture; facial fracture; ocular entrapment; ACS; pneumonia; rhabdomyolysis - Order placed for continuous cardiac monitoring. At this time, monitor showed rate of 56 bpm with normal sinus rhythm, per my interpretation. - External medical records reviewed. Nephrology visit note dated 03/02/2024 was reviewed. Patient has stage III CKD with baseline creatinine of 1.6-1.8. - EKG interpreted by myself showed atrial fibrillation. Rate 59 bpm. QT 482. No acute ischemic changes. Noted to have right bundle branch block. - Laboratory workup interpreted by myself showed leukocytosis (WBC 15.73); normal PT/INR; baseline CKD (Cr 1.75); elevated lactate (22); elevated troponin (19.9); normal BNP; normal lipase - UA showed evidence of infection. Given 2g IV rocephin - CXR negative for pneumonia, per my interpretation - Xray pelvis negative for acute fracture - CT head wo contrast negative for acute intracranial pathology. Did have a right scalp and facial contusion/hematoma. - CT face wo contrast showed right forehead/perirobital and facial contusions - CT cervical spine wo contrast negative for acute injury - CT chest with IV contrast negative for acute traumatic injury. - CT abdomen/pelvis with IV contrast showed no acute traumatic injuries. Noted to have a distended bladder. - Patient given 1L NS in setting of CKD and contrast bolus for CT imaging. - Tetanus updated in ER. - Patient's laceration on the right knee is gaping. However, given that the fall was last night concerned about placing sutures at this point. - Discussion was had with immigration case manager about patient's case and need for admission - Hospitalist consulted for admission [facility] and [facility]. ASSESSMENT AND PLAN: Diagnosis: generalized weakness; fall from standing; facial contusions; facial hematoma; elevated troponin; acute UTI; laceration of face; laceration of right knee Plan: admit Past Med/Surg History Problem List (Updated 04/21/24 @ 14:00 by Tiffanie Mae MD) Laceration of knee, right (Acute) Laceration of face (Acute) Hematoma of face (Acute) Contusion of face (Acute) Elevated troponin (Acute) Fall from standing (Acute) Acute UTI (urinary tract infection) (Acute) Generalized weakness (Acute) Acute kidney injury Anemia Dysphagia Biceps muscle strain Venous insufficiency Lower extremity edema Tremor Diabetes mellitus with hypoglycemia without coma Dizzy (Acute) Right leg pain General unsteadiness Medial epicondylitis of both elbows Vitamin D deficiency Leg cramps Leg swelling Chronic kidney disease, stage 3a Toe swelling Allergic rhinitis Morbid obesity due to excess calories Secondary pulmonary hypertension Excessive daytime sleepiness Chronic dyspnea Diastolic CHF Morbid obesity due to excess calories Peritracheal mass Mild persistent asthma Severe obstructive sleep apnea Weakness generalized Acute kidney injury superimposed on chronic kidney disease Symptomatic bradycardia (Acute) Fever (Acute) Bilateral knee pain Dermatitis Trifascicular bundle branch block Atrial fibrillation Endometrial cancer (~2008) Arteriosclerotic cardiovascular disease (Acute) Arthralgia of multiple sites (Acute) Asthma, mild persistent (Acute) Essential tremor (Acute) Hypertrophy of nasal turbinates (Acute) Osteoarthritis of knee (Acute) Premature ventricular contractions (Acute) Thrombophlebitis of deep veins of upper extremities (Acute) Ventricular bigeminy (Acute) Degenerative scoliosis Osteoarthritis of knees, bilateral Chronic diastolic heart failure Uncontrolled type 2 diabetes mellitus with insulin therapy (Chronic) History of colon polyps Coronary artery disease (Chronic) Hyperlipidemia (Chronic) Hypertension (Chronic) Hypothyroidism (Chronic) Polyneuropathy (Chronic) Medical History Cardiac conduction disorder Deviated septum Lymphedema Pulmonary embolism Deep vein thrombosis Asthma Arthritis Sleep apnea Polyneuropathy History of bradycardia Right bundle branch block Type 2 diabetes mellitus Hypothyroidism Hyperlipidemia Hypertension Coronary artery disease Surgical History Family history of reaction to anesthesia History of cardiac cath History of colonoscopy (~06/06/18) Hx of appendectomy H/O total hysterectomy with removal of both tubes and ovaries (~06/10/08) History of loop recorder History of tonsillectomy and adenoidectomy Cataract Family History Grandmother (Paternal) Family history of diabetes mellitus Mother Family history of diabetes mellitus Sister Family history of diabetes mellitus Breast cancer Denies family history of Ovarian cancer Prostate cancer Myocardial infarction Colorectal cancer Social History Smoking Status: Never smoker Second Hand Exposure: No; Do You Dip or Chew Tobacco: No; Hx Alcohol Use: No Hx Substance Use: No Preferred Language: Persian Communication Ability: Effective Visual Impairment: No Limitations Hearing Ability: Normal Trimmer Operator Required: No Beliefs That Will Affect Care: None marital status: Single Current Living Situation: Alone current occupational status: retired current occupation: retired from career with [employer], and [email or web address] Feels Safe at Home: Yes Childhood Exposure to Second-Hand Smoke: No Diet: low salt and regular caffeine: No Dental Care, Regularly: Yes Physical Activity Frequency: Does not Exercise Seatbelt Use: always Sunscreen Use: Yes Assistive Devices: Walker Allergies Allergies Allergy/AdvReac Type Severity Reaction Status Date / Time adhesive Allergy Severe blisters Verified 01/30/24 09:19 asparagus Allergy Intermediate RASH HIVES Verified 01/30/24 09:19 bumetanide Allergy Intermediate RASH Verified 01/30/24 09:19 cantaloupe Allergy Intermediate Rash Verified 01/30/24 09:19 cetirizine Allergy Intermediate rash, H/A Verified 01/30/24 09:19 melon Allergy Intermediate Rash Verified 01/30/24 09:19 mold Allergy Intermediate nasal Verified 01/30/24 09:19 congestion strawberry Allergy Intermediate HIVES Verified 01/30/24 09:19 pollen extracts Allergy Unknown SNEEZING, Verified 01/30/24 09:19 CONGESTION Home Meds Home Medications Medication Instructions Recorded Confirmed ascorbic acid (vitamin C) 500 mg 500 mg PO DAILY 04/22/18 03/02/24 tablet (Vitamin C With Griselda Hips) pyridoxine (vitamin B6) 100 mg 100 mg PO DAILY 04/22/18 03/02/24 tablet (Vitamin B-6) CPAP Machine #1 ea 12/02/19 03/02/24 mecobalamin (vitamin B12) 500 mcg 500 mcg PO DAILY 05/10/23 03/02/24 chewable tablet mometasone 50 mcg/actuation nasal 2 spray intranasal DAILY 05/10/23 03/02/24 spray (Nasonex 24hr Allergy) mupirocin 2 % topical ointment 1 applic topical BID PRN Dry Nasal 05/10/23 03/02/24 Passages olopatadine 0.2 % eye drops 1 drp ophthalmic (eye) DAILY PRN 05/10/23 03/02/24 (Pataday Once Daily Relief) ITCHY EYES acetaminophen 650 mg 650 mg PO Q8H PRN Pain 10/15/23 03/02/24 tablet,extended release (Tylenol 8 Hour) albuterol sulfate 90 mcg/actuation 2 puff inhalation QID PRN 10/15/23 03/02/24 aerosol inhaler Shortness Of Breath Or Wheezing beclomethasone dipropionate 40 2 inh inhalation BID 10/15/23 03/02/24 mcg/actuation HFA breath activated aerosol (Qvar RediHaler) famotidine 20 mg tablet 20 mg PO HS 10/15/23 03/02/24 folic acid 800 mcg tablet 0.8 mg PO DAILY 10/15/23 03/02/24 psyllium husk 3.4 gram/5.4 gram 2 tsp PO BID 10/15/23 03/02/24 oral powder (Metamucil) bumetanide 1 mg tablet 3 mg PO BID 03/02/24 03/02/24 Previous Rx's Medication Instructions Recorded compress.stocking,knee,reg,med #2 ea 07/14/21 metformin 500 mg tablet 500 mg PO BID #180 tabs 01/09/22 blood sugar diagnostic #400 ea 01/03/23 montelukast 10 mg tablet 10 mg PO DAILY #90 tabs 03/12/23 (Singulair) azelastine 137 mcg (0.1 %) nasal 2 spray intranasal BID #30 mL 05/10/23 spray insulin syringe-needle U-100 1 mL #100 ea 07/17/23 31 gauge x /16" (BD Insulin Syringe Ultra-Fine) allopurinol 100 mg tablet 100 mg PO DAILY #90 tabs 09/10/23 blood sugar diagnostic (OneTouch #100 ea 10/01/23 Ultra Test strips) pen needle, diabetic 32 gauge x #100 ea 10/01/23 3/16" gabapentin 300 mg capsule 600 mg (2 x 300 mg) PO TID #180 10/21/23 caps metoprolol succinate 25 mg 25 mg PO DAILY #90 tabs 11/01/23 tablet,extended release 24 hr losartan 100 1 tab PO DAILY #90 tabs 01/08/24 mg-hydrochlorothiazide 25 mg tablet insulin aspart U-100 100 unit/mL 10 - 20 unit (0.1 - 0.2 mL) subcut 01/13/24 subcutaneous solution (Novolog TID #100 mL U-100 Insulin aspart) spironolactone 25 mg tablet 25 mg PO DAILY #90 tabs 01/27/24 omeprazole 40 mg capsule,delayed 40 mg PO DAILY #90 caps 01/28/24 release insulin glargine U-300 conc 300 72 unit (0.24 mL) subcut HS #6 mL 01/30/24 unit/mL (3 mL) subcutaneous pen (Toujeo Max U-300 SoloStar) apixaban 5 mg tablet (Eliquis) 5 mg PO BID #180 tabs 02/17/24 empagliflozin 10 mg tablet 10 mg PO DAILY #30 tabs 03/02/24 (Jardiance) potassium chloride 20 mEq 20 meq PO DAILY #90 tabs 03/04/24 tablet,extended release levothyroxine 137 mcg tablet 137 mcg PO QAM #90 tabs 03/24/24 (Synthroid) simvastatin 40 mg tablet 40 mg PO HS #90 tabs 03/26/24 Results & Data (ED) Vital Signs Vital Signs - 24 hr 04/21/24 11:24 04/21/24 11:30 04/21/24 11:30 Temperature 36.6 C 36.6 C Temperature Source Oral Pulse Rate 61 68 Pulse Rate [Apical] 61 Pulse Rate from SpO2 Sensor Pulse Rhythm Regular Pulse Rhythm [Apical] Pulse Strength Normal Pulse Strength [Apical] Respiratory Rate 19 17 18 Respiratory Effort / Characteristics Non-Labored Spontaneous Non-Labored Spontaneous Respiratory Depth Normal Normal Respiratory Pattern Regular Regular Blood Pressure 152/67 H 152/67 H Blood Pressure [Left Arm] 152/67 H Blood Pressure Mean 95 Blood Pressure Mean [Left Arm] 95 Pulse Oximetry 99 99 96 Oxygen Delivery Method Room Air Room Air Room Air Oxygen Flow Rate 0 Sepsis Recent Fever Within 48 Hours No Sepsis New/Unexplained Change in Mental Status No Sepsis Action Taken by Nursing No Action Required 04/21/24 11:50 04/21/24 11:51 04/21/24 12:21 Temperature 36.5 C Temperature Source Oral Pulse Rate 74 Pulse Rate [Apical] 56 L Pulse Rate from SpO2 Sensor 65 Pulse Rhythm Pulse Rhythm [Apical] Pulse Strength Pulse Strength [Apical] Normal Respiratory Rate 18 19 Respiratory Effort / Characteristics Non-Labored Spontaneous Respiratory Depth Normal Respiratory Pattern Regular Blood Pressure 167/101 H Blood Pressure [Left Arm] 170/92 H Blood Pressure Mean 123 Blood Pressure Mean [Left Arm] 118 Pulse Oximetry 99 97 99 Oxygen Delivery Method Room Air Room Air Room Air Oxygen Flow Rate Sepsis Recent Fever Within 48 Hours Sepsis New/Unexplained Change in Mental Status Sepsis Action Taken by Nursing 04/21/24 12:21 04/21/24 12:32 04/21/24 13:00 Temperature 36.8 C Temperature Source Oral Pulse Rate 62 62 Pulse Rate [Apical] 56 L Pulse Rate from SpO2 Sensor 62 Pulse Rhythm Pulse Rhythm [Apical] Regular Pulse Strength Pulse Strength [Apical] Normal Respiratory Rate 16 19 14 Respiratory Effort / Characteristics Non-Labored Spontaneous Respiratory Depth Normal Respiratory Pattern Regular Blood Pressure 170/92 H 143/67 H Blood Pressure [Left Arm] 162/79 H Blood Pressure Mean 118 92 Blood Pressure Mean [Left Arm] 106 Pulse Oximetry 99 92 99 Oxygen Delivery Method Room Air Room Air Room Air Oxygen Flow Rate Sepsis Recent Fever Within 48 Hours Sepsis New/Unexplained Change in Mental Status Sepsis Action Taken by Nursing 04/21/24 13:15 04/21/24 13:25 Temperature 36.5 C Temperature Source Oral Pulse Rate Pulse Rate [Apical] 56 L Pulse Rate from SpO2 Sensor Pulse Rhythm Pulse Rhythm [Apical] Pulse Strength Pulse Strength [Apical] Normal Respiratory Rate 16 15 Respiratory Effort / Characteristics Non-Labored Spontaneous Respiratory Depth Normal Respiratory Pattern Blood Pressure 138/88 Blood Pressure [Left Arm] 142/67 H Blood Pressure Mean 104 Blood Pressure Mean [Left Arm] 92 Pulse Oximetry 92 95 Oxygen Delivery Method Room Air Room Air Oxygen Flow Rate Sepsis Recent Fever Within 48 Hours Sepsis New/Unexplained Change in Mental Status Sepsis Action Taken by Nursing Laboratory Data 04/21/24 11:52 04/21/24 11:52 Lab Results 04/21/24 04/21/24 04/21/24 Range/Units 11:51 11:52 Unknown WBC 15.73 H (4.8-10.8) K/ul RBC 4.66 (4.20-5.40) M/uL Hgb 13.7 (12.0-16.0) g/dl POC Hgb 13.9 (12.0-16.0) g/dl Hct 41.8 (37.0-47.0) % POC Hct 41 (37-47) % MCV 89.7 (80.0-100.0) fL MCH 29.4 (25.0-34.0) pg MCHC 32.8 (32.0-36.0) g/dL RDW Std Deviation 50.1 H (36.4-46.3) fL RDW Coeff of Consuelo 15.2 H (11.5-14.5) % Plt Count 192 (130-400) K/uL MPV 13.6 H (9.4-12.4) fL Immature Gran % (Auto) 0.5 % Neut % (Auto) 78.6 % Lymph % (Auto) 11.3 % Day % (Auto) 8.5 % Eos % (Auto) 0.7 % Baso % (Auto) 0.4 % Neut # (Auto) 12.35 H (1.40-6.50) K/uL Lymph # (Auto) 1.78 (1.20-3.40) K/uL Day # (Auto) 1.34 H (0.11-0.59) K/uL Eos # (Auto) 0.11 (0.00-0.50) K/uL Baso # (Auto) 0.07 (0.00-0.20) K/uL Immature Gran # (Auto) 0.08 (0.01-0.20) K/uL PT 11.4 (9.0-12.0) Seconds INR 1.1 (0.9-1.1) APTT 26 (21-31) Seconds PTT Ratio 1.0 POC Sodium 139 (135-144) mmol/L Sodium 140 (136-145) mmol/L POC Potassium 4.0 (3.3-5.0) mmol/L Potassium 4.2 (3.5-5.1) mmol/L POC Chloride 105 (101-112) mmol/L Chloride 103 (98-107) mmol/L Carbon Dioxide 29 (21-32) mmol/L POC Total CO2 24 (24-31) mmol/L Anion Gap 8 (3-11) POC Anion Gap 15.0 L (16-25) mmol/L POC BUN 37 H (7-18) mg/dl BUN 42 H (6-23) mg/dl Creatinine 1.75 H (0.6-1.2) mg/dl POC Creatinine 1.7 H (0.6-1.3) mg/dl Est Cr Clr Drug Dosing 37.1 ml/min eGFR 29.83 BUN/Creatinine Ratio 24.0 H (10-20) Glucose 252 H (70-99(Fasting)) mg/dl POC Glucose (other) 260 H (70-99) mg/dl Lactate 2.2 H* (0.4-2.0) mmol/L Calcium 10.2 (8.6-10.3) mg/dl POC Ioniz Calcium Radha 1.18 (1.12-1.32) mmol/l Total Bilirubin 1.0 (0.2-1.0) mg/dl AST 16 (13-39) U/L ALT 12 (7-52) U/L Alkaline Phosphatase 75 (34-104) U/L Total Creatine Kinase 171 (26-192) U/L Troponin I High Sens 19.9 H (0-14) pg/ml B-Natriuretic Peptide 55 (0-100) pg/ml Total Protein 6.8 (6.0-8.3) gm/dl Albumin 3.8 (3.4-5.0) gm/dl Globulin 3.0 (2.5-4.0) gm/dl Albumin/Globulin Ratio 1.3 (0.9-2) Lipase 57 (11-82) U/L Urine Color Yellow Urine Appearance Clear (Clear) Urine pH 5.0 (4.5-7.5) Ur Specific Childs 1.025 (1.000-1.030) Urine Protein Negative (Negative) Urine Glucose (UA) 3+ H (Negative) Urine Ketones Negative (Negative) Urine Blood Negative (Negative) Urine Nitrite Positive A (Negative) Urine Bilirubin Negative (Negative) Urine Urobilinogen Negative (Negative) Ur Leukocyte Esterase 1+ H (Negative) Urine WBC (Auto) 21-50 H (0-5) /hpf Urine RBC (Auto) 0-2 (0-2) /hpf U Hyaline Cast (Auto) 0-2 (0-2) /lpf U Epithel Cells (Auto) 0-2 (0-2) /hpf Urine Bacteria (Auto) 4+ H (None Seen) Administered Medications Discontinued Medications Diphtheria/Pertussis/Tetanus Vacc (Diphther/Tetan/Pertus Vaccine (Tdap, Adol/Adult) 0.5ml) 0.5 ml IM .ONCE ONE Stop: 04/21/24 11:34 Last Admin: 04/21/24 12:48 Dose: 0.5 ml Documented By: GGG Sodium Chloride (Nss) 500 mls @ 999 mls/hr IV .Q31M ONE Stop: 04/21/24 12:22 Last Infusion: 04/21/24 12:51 Dose: Infused Documented By: Admin: 04/21/24 12:20 Dose: 999 mls/hr Documented By: EMMA Ioversol (Optiray 320 100ml) 94 ml IV ONCE ONE Stop: 04/21/24 12:04 Last Admin: 04/21/24 12:03 Dose: 94 ml Documented By: DEREK Imaging Data Radiologist's Impression: Abdomen/Pelvis CT 04/21/24 11:29 CT OF THE ABDOMEN AND PELVIS WITH CONTRAST CLINICAL HISTORY: Trauma COMPARISON STUDY: CT of the abdomen and pelvis October 15, 2023. Pelvis radiograph performed earlier today. TECHNIQUE: Following IV administration of 94 mL of Optiray, axial images of the abdomen and pelvis were obtained from the lung bases to the proximal femurs. Images were reviewed in the axial, sagittal, and coronal planes. IV contrast was administered without complication. Automated exposure control was utilized for the study. A dose lowering technique was utilized adhering to the principles of ALARA. CT DOSE: 3850.5 mGy.cm FINDINGS: No hemoperitoneum or pneumoperitoneum is present. The heart is moderately enlarged. There is no evidence for traumatic injury to the liver, spleen, kidneys or pancreas. No biliary or pancreatic ductal dilatation is present. There is no free fluid. The caliber and wall thickness of small and large bowel are normal. Major vasculature is patent. There is no lymphadenopathy. Bladder is moderately distended. No hydronephrosis. Lumbar spine levoscoliosis is incidentally noted. No acute fractures within the lumbar spine, pelvis or hips are identified. There is moderate bilateral hip osteoarthritis as well as moderate multilevel degenerative disc disease and facet arthrosis within the lumbar spine. IMPRESSION: 1. No acute traumatic findings within the abdomen or pelvis. No acute fractures. 2. Distended bladder. ACT 112: Negative or not required by law. Electronically signed by: Zane Graf M.D. 04/21/2024 12:[address] 04/21/24 11:29 CT OF THE CERVICAL SPINE WITHOUT CONTRAST CLINICAL HISTORY: Trauma COMPARISON STUDY: Cervical spine CT September 08, 2019. CT of the neck January 16, 2021. TECHNIQUE: Helical axial images of the cervical spine were obtained without IV contrast. Sagittal and coronal reconstructions were viewed. Automated exposure control was utilized for the study. A dose lowering technique was utilized adhering to the principles of ALARA. FINDINGS: There is straightening of the cervical lordosis. There is slight anterolisthesis of C3 on C4. No cervical spine fractures are noted. Moderate multilevel degenerative disc disease and facet arthrosis is present. The findings are most pronounced at the C5-C6 level. There is no prevertebral edema. An exophytic 4.1 cm the right lobe thyroid nodule is similar in appearance to prior CT. IMPRESSION: No acute cervical spine fracture or subluxation. ACT 112: Negative or not required by law. Electronically signed by: Zane Graf M.D. 04/21/2024 12:[address] 04/21/24 11:[address] WITH CONTRAST CT DOSE: HISTORY: Trauma TECHNIQUE: Multiaxial CT images of the chest were performed following the IV administration of 90 cc of Optiray. A dose lowering technique was utilized adhering to the principles of ALARA. COMPARISON STUDY: 09/08/2019. FINDINGS: There is no pulmonary contusion, pleural effusion, or pneumothorax. No mediastinal hematoma or evidence of thoracic aortic injury. No pericardial effusion. Stable nodular right thyroid extending into the upper mediastinum. There are mild thoracic spine degenerative changes. No acute osseous finding seen. IMPRESSION: No acute injury seen in the chest. ACT 112: Negative or not required by law. Electronically signed by: Deepak Villalobos M.D. 04/21/2024 12:58 PM Chest X-Ray 04/21/24 11:29 XR chest 1V portable CLINICAL HISTORY: Trauma COMPARISON STUDY: Chest CT September 08, 2019. Chest radiograph September 11, 2019. FINDINGS: Lung volumes are normal. Lungs are clear. There is no pneumothorax or pleural effusion. Cardiomegaly is unchanged. Mediastinal contours are normal. There is no evidence for pulmonary edema. An electronic device projects over the left chest. IMPRESSION: No acute cardiopulmonary findings. ACT 112: Negative or not required by law. Electronically signed by: Zane Graf M.D. 04/21/2024 12:[address] 04/21/24 11:29 CT head/brain wo con CLINICAL HISTORY: 78 years-old Female with trauma. Acute head trauma TECHNIQUE: Multiple axial CT images of the head were obtained without contrast. A dose lowering technique was utilized adhering to the principles of ALARA. COMPARISON: 09/08/2019 FINDINGS: No acute intracranial hemorrhage, midline shift, intracranial mass, hydrocephalus, territorial ischemia or abnormal extra-axial collection. Involutional changes with chronic microvascular ischemic disease. The calvarium is intact. Prior bilateral lens repair. Right forehead and periorbital contusion with 4 cm hematoma. The paranasal sinuses, mastoid air cells, and middle ear cavities are clear. IMPRESSION: 1. No acute intracranial abnormality or calvarial fracture. 2. Right scalp and facial contusion/hematoma. ACT 112: Negative or not required by law. The above report was generated using voice recognition software. It may contain grammatical, syntax or spelling errors. Electronically signed by: Sidney Walsh M.D. 04/21/2024 12:47 PM Pelvis X-Ray 04/21/24 11:29 XR pelvis 1-2V routine CLINICAL HISTORY: Trauma COMPARISON: None FINDINGS: No fracture or dislocation seen. There are mild degenerative changes at the hips. IMPRESSION: No pelvic fracture seen. ACT 112: Negative or not required by law. Electronically signed by: Deepak Villalobos M.D. 04/21/2024 12:[address] 04/21/24 11:30 CT facial bones wo con CLINICAL HISTORY: 78 years-old Female presenting with trauma. Acute facial trauma COMPARISON STUDY: Head CT of same day TECHNIQUE: High-resolution CT scan of the facial bones is performed. Images are reviewed in the axial, sagittal, and coronal planes. IV contrast was not administered for this examination. A dose lowering technique was utilized adhering to the principles of ALARA. FINDINGS: No acute intracranial abnormality. Moderate right forehead/periorbital contusion/hematoma. Mastoid air cells and paranasal sinuses are generally clear. No acute fracture identified. Degenerative changes of the cervical spine. Right- sided thyroid goiter. IMPRESSION: 1. No acute facial bone fracture. 2. Right forehead/periorbital and facial contusions. ACT 112: Negative or not required by law. The above report was generated using voice recognition software. It may contain grammatical, syntax or spelling errors. Electronically signed by: Sidney Walsh M.D. 04/21/2024 12:56 PM Discharge Plan Visit Data Chief Complaint: Trauma Stated Complaint: TRAUMA ALERT, FALL ED Provider: Tiffanie Mae Discharge Problem: Generalized weakness, Acute UTI (urinary tract infection), Fall from standing, Elevated troponin, Contusion of face, Hematoma of face, Laceration of face, Laceration of knee, right Forms Stand Alone Forms: [facility] Prescriptions Prescriptions: No Action metformin 500 mg tablet 500 mg PO BID Qty: 180 3RF (DME) blood sugar diagnostic Strip See Dose Instructions .ROUTE .MEDSUPPLY Qty: 400 3RF Rx Instructions: use to test blood sugar 3 TIMES DAILY DX E11.65 Z79.4 montelukast [Singulair] 10 mg tablet 10 mg PO DAILY Qty: 90 3RF (DME) insulin syringe-needle U-100 [BD Insulin Syringe Ultra-Fine] 1 mL 31 gauge x 5/16 syringe See Dose Instructions .ROUTE .MEDSUPPLY Qty: 100 11RF Dose Instruction: As directed Rx Instructions: use 5 times daily or as directed allopurinol 100 mg tablet 100 mg PO DAILY Qty: 90 3RF (DME) pen needle, diabetic 32 gauge x 3/16" needle See Rx Instructions .Route Qty: 100 12RF Rx Instructions: Use once daily with Toujeo pen DX:E11.9 (DME) OneTouch Ultra Test Strip See Rx Instructions .Route Qty: 100 12RF Rx Instructions: As directed test 3 times a day metoprolol succinate 25 mg tablet extended release 24 hr 25 mg PO DAILY Qty: 90 3RF losartan-hydrochlorothiazide 100-25 mg tablet 1 tab PO DAILY Qty: 90 3RF insulin aspart U-100 [Novolog U-100 Insulin aspart] 100 unit/mL solution 10 - 20 unit SQ TID Qty: 100 8RF Rx Instructions: before meals as directed Eliquis 5 mg tablet 5 mg PO BID Qty: 180 3RF potassium chloride 20 mEq tablet extended release 20 meq PO DAILY Qty: 90 3RF Hold Instructions: hyperkalemia levothyroxine [Synthroid] 137 mcg tablet 137 mcg PO QAM Qty: 90 3RF simvastatin 40 mg tablet 40 mg PO HS Qty: 90 3RF Rx Instructions: TAKE 1 TABLET BY MOUTH AT BEDTIME (DME) compress.stocking,knee,reg,med Misc See Rx Instructions .Route Qty: 2 0RF Rx Instructions: knee high compression stockings, QTY 2 LT & 2 RT @ 20/30 mmHg mometasone [Nasonex 24hr Allergy] 50 mcg/actuation spray,non-aerosol 2 spray intranasal DAILY Rx Instructions: administer into each nostril olopatadine [Pataday Once Daily Relief] 0.2 % drops 1 drp ophthalmic (eye) DAILY PRN (Reason: ITCHY EYES) mupirocin 2 % ointment 1 applic topical BID PRN (Reason: Dry Nasal Passages) mecobalamin (vitamin B12) 500 mcg tablet,chewable 500 mcg PO DAILY azelastine 137 mcg (0.1 %) aerosol,spray 2 spray intranasal BID Qty: 30 11RF Rx Instructions: administer into each nostril (DME) CPAP Machine Misc See Rx Instructions .ROUTE .MEDSUPPLY Qty: 1 Rx Instructions: As directed bumetanide 1 mg tablet 3 mg PO BID Jardiance 10 mg tablet 10 mg PO DAILY Qty: 30 6RF gabapentin 300 mg capsule 600 mg PO TID Qty: 180 5RF omeprazole 40 mg capsule,delayed release(DR/EC) 40 mg PO DAILY Qty: 90 3RF Toujeo Max U-300 SoloStar 300 unit/mL (3 mL) insulin pen 72 unit subcut HS Qty: 6 3RF Rx Instructions: or as directed spironolactone 25 mg tablet 25 mg PO DAILY Qty: 90 3RF ascorbic acid (vitamin C) [Vitamin C With Griselda Hips] 500 mg Tablet 500 mg PO DAILY pyridoxine (vitamin B6) [Vitamin B-6] 100 mg Tablet 100 mg PO DAILY acetaminophen [Tylenol 8 Hour] 650 mg Tablet Extended Release 650 mg PO Q8H PRN (Reason: Pain) famotidine 20 mg Tablet 20 mg PO HS albuterol sulfate 90 mcg/actuation Hfa Aerosol Inhaler 2 puff INHALATION QID PRN (Reason: Shortness Of Breath Or Wheezing) folic acid 800 mcg Tablet 0.8 mg PO DAILY Metamucil 3.4 gram/5.4 gram Powder 2 tsp PO BID Rx Instructions: mix into at least 4 oz water or juice before administering Qvar RediHaler 40 mcg/actuation Hfa Aerosol Breath Activated 2 inh INHALATION BID Referrals Referrals: Jostin Palomares DO [Primary Care Provider] -
[2024-04-21 12:03] LABS: iSTAT Creatinine 1.7 mg/dl (0.6-1.3); iSTAT Hemoglobin 13.9 g/dl (12.0-16.0); iSTAT Ionized Calcium 1.18 mmol/l (1.12-1.32)
[2024-04-21] MEDS: OPTIRAY 320 100ml IV ONE (12:03)
--- NOTE | 2024-04-21 12:04 | XRay Report ---
XR pelvis 1-2V routine CLINICAL HISTORY: Trauma COMPARISON: None FINDINGS: No fracture or dislocation seen. There are mild degenerative changes at the hips. IMPRESSION: No pelvic fracture seen. ACT 112: Negative or not required by law. Electronically signed by: Deepak Villalobos M.D. 04/21/2024 12:03 PM
[2024-04-21 12:13] LABS: Basophils # (auto) 0.07 K/uL (0.00-0.20); Basophils % (auto) 0.4 %; Eosinophils # (auto) 0.11 K/uL (0.00-0.50); Eosinophils % (auto) 0.7 %; Hematocrit (blood only) 41.8 % (37.0-47.0); Hemoglobin 13.7 g/dl (12.0-16.0); Immature Granulocytes # (auto) 0.08 K/uL (0.01-0.20); Immature Granulocytes % (auto) 0.5 %; Lymphocytes # (auto) 1.78 K/uL (1.20-3.40); Lymphocytes % (auto) 11.3 %; Mean Corpuscular Hemoglobin 29.4 pg (25.0-34.0); Mean Corpuscular Hgb Conc 32.8 g/dL (32.0-36.0); Mean Corpuscular Volume 89.7 fL (80.0-100.0); Mean Platelet Volume 13.6 fL (9.4-12.4); Monocytes # (auto) 1.34 K/uL (0.11-0.59); Monocytes % (auto) 8.5 %; Neutrophils # (auto) 12.35 K/uL (1.40-6.50); Neutrophils % (auto) 78.6 %; Platelet Count 192 K/uL (130-400); RDW Coefficient of Variation 15.2 % (11.5-14.5); RDW Standard Deviation 50.1 fL (36.4-46.3); Red Blood Count 4.66 M/uL (4.20-5.40); White Blood Count 15.73 K/ul (4.8-10.8)
[2024-04-21] MEDS: SODIUM CHLORIDE 0.9% 500 ML IV ONE (12:20)
--- NOTE | 2024-04-21 12:20 | XRay Report ---
XR chest 1V portable CLINICAL HISTORY: Trauma COMPARISON STUDY: Chest CT September 08, 2019. Chest radiograph September 11, 2019. FINDINGS: Lung volumes are normal. Lungs are clear. There is no pneumothorax or pleural effusion. Car diomegaly is unchanged. Mediastinal contours are normal. There is no evidence for pulmonary edema. An electronic device projects over the left chest. IMPRESSION: No acute cardiopulmonary findings. ACT 112: Negative or not required by law. Electronically signed by: Zane Graf M.D. 04/21/2024 12:19 PM
[2024-04-21 12:31] LABS: Albumin Globulin Ratio 1.3 (0.9-2); Albumin Level 3.8 gm/dl (3.4-5.0); Calcium 10.2 mg/dl (8.6-10.3); Creatinine Clr Calc Pharmacy 37.1 ml/min; Potassium 4.2 mmol/L (3.5-5.1); Total Protein 6.8 gm/dl (6.0-8.3)
--- NOTE | 2024-04-21 12:34 | CT Scan Report ---
CT OF THE CERVICAL SPINE WITHOUT CONTRAST CLINICAL HISTORY: Trauma COMPARISON STUDY: Cervical spine CT September 08, 2019. CT of the neck January 16, 2021. TECHNIQUE: Helical axial images of the cervical spine were obtained without IV contrast. Sagittal a nd coronal reconstructions were viewed. Automated exposure control was utilized for the study. A do se lowering technique was utilized adhering to the principles of ALARA. FINDINGS: There is straightening of the cervical lordosis. There is slight anterolisthesis of C3 on C 4. No cervical spine fractures are noted. Moderate multilevel degenerative disc disease and facet art hrosis is present. The findings are most pronounced at the C5-C6 level. There is no prevertebral armaan a. An exophytic 4.1 cm the right lobe thyroid nodule is similar in appearance to prior CT. IMPRESSION: No acute cervical spine fracture or subluxation. ACT 112: Negative or not required by law. Electronically signed by: Znae Graf M.D. 04/21/2024 12:32 PM
[2024-04-21 12:37] LABS: INR 1.1 (0.9-1.1); Partial Thromboplastin Time 26 Seconds (21-31); Prothrombin Time 11.4 Seconds (9.0-12.0); Troponin I High Sensitivity 19.9 pg/ml (0-14)
--- NOTE | 2024-04-21 12:45 | CT Scan Report ---
CT OF THE ABDOMEN AND PELVIS WITH CONTRAST CLINICAL HISTORY: Trauma COMPARISON STUDY: CT of the abdomen and pelvis October 15, 2023. Pelvis radiograph performed earlier to day. TECHNIQUE: Following IV administration of 94 mL of Optiray, axial images of the abdomen and pelvis we re obtained from the lung bases to the proximal femurs. Images were reviewed in the axial, sagittal, and coronal planes. IV contrast was administered without complication. Automated exposure control wa s utilized for the study. A dose lowering technique was utilized adhering to the principles of ALARA . CT DOSE: 3850.5 mGy.cm FINDINGS: No hemoperitoneum or pneumoperitoneum is present. The heart is moderately enlarged. There i s no evidence for traumatic injury to the liver, spleen, kidneys or pancreas. No biliary or pancreati c ductal dilatation is present. There is no free fluid. The caliber and wall thickness of small and l arge bowel are normal. Major vasculature is patent. There is no lymphadenopathy. Bladder is moderatel y distended. No hydronephrosis. Lumbar spine levoscoliosis is incidentally noted. No acute fractures within the lumbar spine, pelvis or hips are identified. There is moderate bilateral hip osteoarthriti s as well as moderate multilevel degenerative disc disease and facet arthrosis within the lumbar spin e. IMPRESSION: 1. No acute traumatic findings within the abdomen or pelvis. No acute fractures. 2. Distended bladder. ACT 112: Negative or not required by law. Electronically signed by: Zane Graf M.D. 04/21/2024 12:44 PM
[2024-04-21] MEDS: DIPHTHER/TETAN/PERTUS Vaccine (Tdap, Adol/Adult) 0.5mL IM ONE (12:48)
--- NOTE | 2024-04-21 12:49 | CT Scan Report ---
CT head/brain wo con CLINICAL HISTORY: 78 years-old Female with trauma. Acute head trauma TECHNIQUE: Multiple axial CT images of the head were obtained without contrast. A dose lowering tech nique was utilized adhering to the principles of ALARA. COMPARISON: 09/08/2019 FINDINGS: No acute intracranial hemorrhage, midline shift, intracranial mass, hydrocephalus, territorial ischem ia or abnormal extra-axial collection. Involutional changes with chronic microvascular ischemic disea se. The calvarium is intact. Prior bilateral lens repair. Right forehead and periorbital contusion with 4 cm hematoma. The paranasal sinuses, mastoid air cells, and middle ear cavities are clear. IMPRESSION: 1. No acute intracranial abnormality or calvarial fracture. 2. Right scalp and facial contusion/hematoma. ACT 112: Negative or not required by law. The above report was generated using voice recognition software. It may contain grammatical, syntax o r spelling errors. Electronically signed by: Sidney Walsh M.D. 04/21/2024 12:47 PM
[2024-04-21 12:50] LABS: Appearance Urine Clear (Clear); Bacteria Urine Automated 4+ (None Seen); Bilirubin Urine Negative (Negative); Blood Urine Negative (Negative); Cast Urine Automated 0-2 /lpf (0-2); Color Urine Yellow; Epithelial Cell Urine Auto 0-2 /hpf (0-2); Glucose Urine UA 3+ (Negative); Ketones Urine Negative (Negative); Leukocyte Esterase Urine 1+ (Negative); Nitrite Urine Positive (Negative); Protein Urine Negative (Negative); RBC Urine Automated 0-2 /hpf (0-2); Specific Gravity Urine 1.025 (1.000-1.030); Urobilinogen Urine Negative (Negative); WBC Urine Automated 21-50 /hpf (0-5)
--- NOTE | 2024-04-21 12:57 | CT Scan Report ---
CT facial bones wo con CLINICAL HISTORY: 78 years-old Female presenting with trauma. Acute facial trauma COMPARISON STUDY: Head CT of same day TECHNIQUE: High-resolution CT scan of the facial bones is performed. Images are reviewed in the axia l, sagittal, and coronal planes. IV contrast was not administered for this examination. A dose lower ing technique was utilized adhering to the principles of ALARA. FINDINGS: No acute intracranial abnormality. Moderate right forehead/periorbital contusion/hematoma. Mastoid ai r cells and paranasal sinuses are generally clear. No acute fracture identified. Degenerative changes of the cervical spine. Right-sided thyroid goiter. IMPRESSION: 1. No acute facial bone fracture. 2. Right forehead/periorbital and facial contusions. ACT 112: Negative or not required by law. The above report was generated using voice recognition software. It may contain grammatical, syntax o r spelling errors. Electronically signed by: Sidney Walsh M.D. 04/21/2024 12:56 PM
--- NOTE | 2024-04-21 12:59 | CT Scan Report ---
CHEST CT WITH CONTRAST CT DOSE: HISTORY: Trauma TECHNIQUE: Multiaxial CT images of the chest were performed following the IV administration of 90 cc of Optiray. A dose lowering technique was utilized adhering to the principles of ALARA. COMPARISON STUDY: 09/08/2019. FINDINGS: There is no pulmonary contusion, pleural effusion, or pneumothorax. No mediastinal hematoma or evidence of thoracic aortic injury. No pericardial effusion. Stable nodular right thyroid extendi ng into the upper mediastinum. There are mild thoracic spine degenerative changes. No acute osseous f inding seen. IMPRESSION: No acute injury seen in the chest. ACT 112: Negative or not required by law. Electronically signed by: Deepak Villalobos M.D. 04/21/2024 12:58 PM
--- NOTE | 2024-04-21 13:05 | Electrocardiogram Report ---
Test Reason : Blood Pressure : */* mmHG Vent. 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
--- NOTE | 2024-04-21 13:55 | Emergency Department Note ---
ED Visit Note I was asked by Dr. Mae to evaluate and repair laceration to the patient's right eyebrow. Please see Dr. Mae's dictation regarding complete history, examination, and final disposition. In short, this 78 year old female suffered a ground level fall last night with prolonged downtime. She has a 1 cm laceration to the lateral aspect of the right eyebrow. The wound edges do gape apart with traction and there is minimal active bleeding. Pt. does also have a 3cm laceration to the anterior inferior aspect of the right knee. The edges gape ap art and adipose tissue is visualized in the base of the wound. No active bleeding or discharge. PROCEDURE NOTE: Verbal consent was obtained to perform the procedure. Using sterile technique the wound was cleaned with Betadine. The area was sterilely draped. 1 ml of 1% lidocaine with epinephrine was used to anesthetize the laceration on the right eyebrow. Once the patient was anesthetized, the wound was copiously irrigated under pressure with sterile saline. The wound was explored and there were no deep structures injured such as tendons, bone, or significant blood vessels. The laceration was repaired using 3 simple interrupted 5-0 nylon sutures with the wound edges being well approximated. The patient tolerated the procedure well. Hemostasis was achieved. The area was cleaned with sterile saline and dressed with bacitracin ointment. Attention was then turned to the laceration of the right knee. Unfortunately, given the delayed presentation, nature of the wound, and the patient's chronic edema, I did discuss case with Dr. Mae and we elected to hold on primary wound closure due to concern for increased infection risk. I did thoroughly cleanse the wound under pressure with sterile saline. I attempted to approximate the wound with Steri-Strips, but the Steri-Strips would not hold. Recommendation made for non-stick dressing and gauze for wound care at this time.
[2024-04-21] MEDS: cefTRIAXone SODIUM 2,000 MG/50 ML BAG IV STA (14:03)
[2024-04-21] MEDS: LIDOCAINE 1%/EPINEPHRINE 1:100,000 50 ML VIAL INFIL ONE (14:04)
--- NOTE | 2024-04-21 14:13 | History & Physical Report ---
Date of Service April 21, 2024 Assessment & Plan (1) Fall from standing: (2) Acute UTI (urinary tract infection): (3) Laceration of face: (4) Type 2 diabetes mellitus: (5) Diastolic CHF: (6) Atrial fibrillation: Plan Marisa is a 78F with a PMHx of afib/PE/DVT (on Eliquis), CKD3, CHF, hx of endometrial cancer (s/p hysterectomy),DMT2, and hypothyroidism who presents to the ER after a fall being down for ~11 hours. UA concerning for infection, but patient does not remember falling. [facility] CT without fracture, but does have signficant swelling to right eyelid. Will be admitted for IV antibiotics, PT/OT and further workup. #Fall/UTI Cause of fall unclear - concerns for cardio causes as pt can't remember, but UTI also plausable Douglas-scanned in the ED: right scalp and facial contusion/hematoma. No acute fractures. UC pending. Switched to ciprofloxacin, given hx of ceftriaxone resistance. PT/OT Check orthostatic VS AM CBC, BMP #Multiples Laceration Eyebrow laceration - repaired in the ED / - suture removal in 7-10 days. Ice and lubricant eye drops ordered. Left knee laceration - concern for infection so not repaired, can use steri strips TDAP given / #DMT2 Home meds: Jardiance, metformin 500mg BID, 70unit Tojeo, 10units novolog with meals Continue Jardiance. Lantus 30units BID, SSI CF 10, CR 5 BSG ACHS #CHF/HTN/ afib Daily standing weights. Dry weight 275 Continue Bumex, metoprolol, Jardiance, spironolactone, losartan-HCTZ EKG with afib on admission HOLD eliquis CKD3 - Cr at baseline on admission Gout - continue allopurinol Hypothyroid - continue Synthroid. Check TSH with fall. DINESH - continue CPAP Dispo: med/tele Dvt proh: Hold Eliquis given facial bruising CODE STATUS: Full Code - at this time, but on admission patient wanted time to think about, recommend readdressing tomorrow History of Present Illness Chief Complaint: Fall Primary Care Provider: Jostin Palomares, Marisa is a 78F with a PMHx of afib/PE/DVT (on Eliquis), CKD3, CHF, hx of endometrial cancer (s/p hysterectomy), DMT2, and hypothyroidism who presents to the ER after a fall. Fell last night going to the bathroom, but does not recall the fall. Has been feeling well recently. No changes in appetite, nausea, vomiting or diarrhea. No cough or cold symptoms. No urinary symptoms. BSGs have been a little high but recently had a steroid injection. Denies lightheadedness or dizziness. ED COurse: Ceftriaxone 2g IV x 1 500 CC nSS TDAP vaccine Allergies Allergy/AdvReac Type Severity Reaction Status Date / Time adhesive Allergy Severe blisters Verified 01/30/24 09:19 asparagus Allergy Intermediate RASH HIVES Verified 01/30/24 09:19 bumetanide Allergy Intermediate RASH Verified 01/30/24 09:19 cantaloupe Allergy Intermediate Rash Verified 01/30/24 09:19 cetirizine Allergy Intermediate rash, H/A Verified 01/30/24 09:19 melon Allergy Intermediate Rash Verified 01/30/24 09:19 mold Allergy Intermediate nasal Verified 01/30/24 09:19 congestion strawberry Allergy Intermediate HIVES Verified 01/30/24 09:19 pollen extracts Allergy Unknown SNEEZING, Verified 01/30/24 09:19 CONGESTION Home Medications Medication Instructions Recorded Confirmed Type ascorbic acid (vitamin C) 500 mg 500 mg PO DAILY 04/22/18 04/21/24 History tablet (Vitamin C With Griselda Hips) pyridoxine (vitamin B6) 100 mg 100 mg PO DAILY 04/22/18 04/21/24 History tablet (Vitamin B-6) CPAP Machine #1 ea 12/02/19 03/02/24 History compress.stocking,knee,reg,med #2 ea 07/14/21 03/02/24 Rx metformin 500 mg tablet 500 mg PO BID #180 tabs 01/09/22 04/21/24 Rx blood sugar diagnostic #400 ea 01/03/23 03/02/24 Rx azelastine 137 mcg (0.1 %) nasal 2 spray intranasal BID #30 mL 05/10/23 04/21/24 Rx spray mecobalamin (vitamin B12) 500 mcg 500 mcg PO DAILY 05/10/23 04/21/24 History chewable tablet mometasone 50 mcg/actuation nasal 2 spray intranasal DAILY 05/10/23 04/21/24 History spray (Nasonex 24hr Allergy) mupirocin 2 % topical ointment 1 applic topical BID PRN Dry Nasal 05/10/23 04/21/24 History Passages olopatadine 0.2 % eye drops 1 drp ophthalmic (eye) DAILY PRN 05/10/23 04/21/24 History (Pataday Once Daily Relief) ITCHY EYES insulin syringe-needle U-100 1 mL #100 ea 07/17/23 03/02/24 Rx 31 gauge x 5/16" (BD Insulin Syringe Ultra-Fine) allopurinol 100 mg tablet 100 mg PO DAILY #90 tabs 09/10/23 04/21/24 Rx blood sugar diagnostic (OneTouch #100 ea 10/01/23 03/02/24 Rx Ultra Test strips) pen needle, diabetic 32 gauge x #100 ea 10/01/23 03/02/24 Rx 3/16" acetaminophen 650 mg 650 mg PO Q8H PRN Pain 10/15/23 04/21/24 History tablet,extended release (Tylenol 8 Hour) albuterol sulfate 90 mcg/actuation 2 puff inhalation QID PRN 10/15/23 04/21/24 History aerosol inhaler Shortness Of Breath Or Wheezing beclomethasone dipropionate 40 2 inh inhalation BID 10/15/23 04/21/24 History mcg/actuation HFA breath activated aerosol (Qvar RediHaler) famotidine 20 mg tablet 20 mg PO HS 10/15/23 04/21/24 History folic acid 800 mcg tablet 0.8 mg PO DAILY 10/15/23 04/21/24 History psyllium husk 3.4 gram/5.4 gram 2 tsp PO BID 10/15/23 04/21/24 History oral powder (Metamucil) metoprolol succinate 25 mg 25 mg PO DAILY #90 tabs 11/01/23 04/21/24 Rx tablet,extended release 24 hr losartan 100 1 tab PO DAILY #90 tabs 01/08/24 04/21/24 Rx mg-hydrochlorothiazide 25 mg tablet insulin aspart U-100 100 unit/mL 10 - 20 unit (0.1 - 0.2 mL) subcut 01/13/24 04/21/24 Rx subcutaneous solution (Novolog TID #100 mL U-100 Insulin aspart) spironolactone 25 mg tablet 25 mg PO DAILY #90 tabs 01/27/24 04/21/24 Rx apixaban 5 mg tablet (Eliquis) 5 mg PO BID #180 tabs 02/17/24 04/21/24 Rx bumetanide 1 mg tablet 3 mg PO BID 03/02/24 04/21/24 History empagliflozin 10 mg tablet 10 mg PO DAILY #30 tabs 03/02/24 04/21/24 Rx (Jardiance) potassium chloride 20 mEq 20 meq PO DAILY #90 tabs 03/04/24 04/21/24 Rx tablet,extended release levothyroxine 137 mcg tablet 137 mcg PO QAM #90 tabs 03/24/24 04/21/24 Rx (Synthroid) simvastatin 40 mg tablet 40 mg PO HS #90 tabs 03/26/24 04/21/24 Rx gabapentin 300 mg capsule 600 mg PO TIDM 04/21/24 04/21/24 History insulin glargine U-300 conc 300 70 unit subcut HS 04/21/24 04/21/24 History unit/mL (3 mL) subcutaneous pen (Toujeo Max U-300 SoloStar) montelukast 10 mg tablet 10 mg PO DAILY 04/21/24 04/21/24 History (Singulair) Past Med/Surg History Problem List (Updated 04/21/24 @ 16:41 by Background Onofre) Laceration of knee, right (Acute) Laceration of face (Acute) Hematoma of face (Acute) Contusion of face (Acute) Elevated troponin (Acute) Fall from standing (Acute) Acute UTI (urinary tract infection) (Acute) Generalized weakness (Acute) Acute kidney injury Anemia Dysphagia Biceps muscle strain Venous insufficiency Lower extremity edema Tremor Diabetes mellitus with hypoglycemia without coma Dizzy (Acute) Right leg pain General unsteadiness Medial epicondylitis of both elbows Vitamin D deficiency Leg cramps Leg swelling Chronic kidney disease, stage 3a Toe swelling Allergic rhinitis Morbid obesity due to excess calories Secondary pulmonary hypertension Excessive daytime sleepiness Chronic dyspnea Diastolic CHF Morbid obesity due to excess calories Peritracheal mass Mild persistent asthma Severe obstructive sleep apnea Weakness generalized Acute kidney injury superimposed on chronic kidney disease Symptomatic bradycardia (Acute) Fever (Acute) Bilateral knee pain Dermatitis Trifascicular bundle branch block Atrial fibrillation Endometrial cancer (~2008) Arteriosclerotic cardiovascular disease (Acute) Arthralgia of multiple sites (Acute) Asthma, mild persistent (Acute) Essential tremor (Acute) Hypertrophy of nasal turbinates (Acute) Osteoarthritis of knee (Acute) Premature ventricular contractions (Acute) Thrombophlebitis of deep veins of upper extremities (Acute) Ventricular bigeminy (Acute) Degenerative scoliosis Osteoarthritis of knees, bilateral Chronic diastolic heart failure Uncontrolled type 2 diabetes mellitus with insulin therapy (Chronic) History of colon polyps Coronary artery disease (Chronic) Hyperlipidemia (Chronic) Hypertension (Chronic) Hypothyroidism (Chronic) Polyneuropathy (Chronic) Medical History Cardiac conduction disorder Deviated septum Lymphedema Pulmonary embolism Deep vein thrombosis Asthma Arthritis Sleep apnea Polyneuropathy History of bradycardia Right bundle branch block Type 2 diabetes mellitus Hypothyroidism Hyperlipidemia Hypertension Coronary artery disease Surgical History Family history of reaction to anesthesia History of cardiac cath History of colonoscopy (~06/06/18) Hx of appendectomy H/O total hysterectomy with removal of both tubes and ovaries (~06/10/08) History of loop recorder History of tonsillectomy and adenoidectomy Cataract Family History Grandmother (Paternal) Family history of diabetes mellitus Mother Family history of diabetes mellitus Sister Family history of diabetes mellitus Breast cancer Denies family history of Ovarian cancer Prostate cancer Myocardial infarction Colorectal cancer Social History Smoking Status: Never smoker Second Hand Exposure: No; Do You Dip or Chew Tobacco: No; Hx Alcohol Use: No Hx Substance Use: No Preferred Language: Taiwanese Communication Ability: Effective Visual Impairment: No Limitations Hearing Ability: Normal Erp Business Analyst Required: No Beliefs That Will Affect Care: None marital status: Single Current Living Situation: Alone current occupational status: retired current occupation: retired from career with [employer], and [employer] Feels Safe at Home: Yes Childhood Exposure to Second-Hand Smoke: No Diet: low salt and regular caffeine: No Dental Care, Regularly: Yes Physical Activity Frequency: Does not Exercise Seatbelt Use: always Sunscreen Use: Yes Assistive Devices: Walker Review of Systems Review of Systems: All systems reviewed & are unremarkable except as noted in Subjective Physical Exam Physical Exam: General: NAD, VS as above, lying in bed, plesant HEENT: unable to open right eye, but when eye lid opened, able to move eyeball without issue. no eye pain. no light sensitivity. sutures over right eye. Resp: normal respiratory effort, lungs clear to auscultation CV: afib, no murmur, Abd: normal bowel sounds, non tender, no hepatosplenomegaly Extremities: Moves all extremities, edema to bilateral lower legs with circumferential redness. Pt report this is consistent with chronic appearance. Laceration to right knee, fat exposed, non bleeding. left open as concern for infection. Neuro: A&O x3, Results & Data Results & Data Vital Signs (Past 12 Hours) Vital Signs Temp Pulse Pulse Resp BP BP Pulse Ox 04/21/24 13:25 97.7 F 56 L 15 142/67 H 95 04/21/24 13:15 16 138/88 92 04/21/24 13:00 62 14 143/67 H 99 04/21/24 12:32 98.2 F 56 L 19 162/79 H 92 04/21/24 12:21 62 16 170/92 H 99 04/21/24 12:21 97.7 F 56 L 19 170/92 H 99 04/21/24 11:51 74 18 167/101 H 97 04/21/24 11:50 99 04/21/24 11:30 61 18 152/67 H 96 04/21/24 11:30 97.9 F 68 17 152/67 H 99 04/21/24 11:24 97.9 F 61 19 152/67 H 99 O2 Del Method O2 Flow Rate 04/21/24 13:25 Room Air 04/21/24 13:15 Room Air 04/21/24 13:00 Room Air 04/21/24 12:32 Room Air 04/21/24 12:21 Room Air 04/21/24 12:21 Room Air 04/21/24 11:51 Room Air 04/21/24 11:50 Room Air 04/21/24 11:30 Room Air 04/21/24 11:30 Room Air 0 04/21/24 11:24 Room Air Laboratory Results cbc, chemistry, lactate reviewed CK reviewed lipase reviewed UA reviewed Diagnostic Findings Douglas -CT reviewed Supervising Physician Co-Signing Physician Notes Patient seen and examined, chart reviewed, case discussed with Jessica Villatoro PA-C and I agree with the assessment and plan as above except as otherwise noted Labs and images reviewed Seen at the bedside. Right facial contusion/eyelid hematomas present. On exam with manual traction I is able to visualize, sclera is without injection EOMs are fully intact without pain or entrapment and pupils equal and reactive to light and accommodation. Patient with fall, cause unclear. Patient is with evidence of UTI treated as above. Denies presyncopal symptoms, but has good memory of the fall. Does not appear overtly concussed but given fall and facial injury does warrant observation for arrhythmia. Continue on telemetry. No focal neurologic symptoms. Agree with above. PG Care Time/CCT Total # of Minutes Spent Total Time Spent with Patient: Total time spent is greater than 50% in coordination of care (as documented) at patient's floor/unit and/or counseling patient: Coding Level of Care Code 47857 INT INP/OBS CARE 3/75MIN Diagnoses Fall from standing W19.XXXA Acute UTI (urinary tract infection) N39.0 Laceration of face S01.81XA Type 2 diabetes mellitus E11.9 Diastolic CHF I50.30 Atrial fibrillation I48.91
[2024-04-21] MEDS ORDERED: GLUCOSE 40% GEL 15 GM TUBE PO PRN (17:28)
[2024-04-21] MEDS ORDERED: POLYETHYLENE (MIRALAX) 17 GM PACK PO PRN (17:28)
[2024-04-21] MEDS ORDERED: GLUCAGON FOR INJ 1 MG VIAL SQ PRN (17:28)
[2024-04-21] MEDS ORDERED: GLUCOSE 10 TAB/TUBE PO PRN (17:28)
[2024-04-21] MEDS ORDERED: DEXTROSE 50% 50 ML SYRINGE IV PRN (17:28)
[2024-04-21] MEDS ORDERED: CARBOHYDRATES FOR HYPOGLYCEMIA PO PRN (17:28)
[2024-04-21] MEDS: INSULIN ASPART PER UNIT CHARGE SC SCH (19:19)
[2024-04-21] MEDS: BUMETANIDE 1 MG TAB PO SCH (20:50)
[2024-04-21] MEDS: CIPROFLOXACIN / D5W 400 MG/200 ML BAG IV SCH (20:50)
[2024-04-21] MEDS: GABAPENTIN 300 MG CAP PO SCH (20:50)
[2024-04-21] MEDS: FAMOTIDINE 20 MG TAB PO SCH (20:51)
[2024-04-22] MEDS: LEVOTHYROXINE SODIUM 137 MCG TABLET PO SCH (05:57)
[2024-04-22 07:01] LABS: Basophils # (auto) 0.04 K/uL (0.00-0.20); Basophils % (auto) 0.4 %; Eosinophils # (auto) 0.14 K/uL (0.00-0.50); Eosinophils % (auto) 1.3 %; Hematocrit (blood only) 37.4 % (37.0-47.0); Hemoglobin 12.2 g/dl (12.0-16.0); Immature Granulocytes # (auto) 0.05 K/uL (0.01-0.20); Immature Granulocytes % (auto) 0.5 %; Lymphocytes # (auto) 1.87 K/uL (1.20-3.40); Lymphocytes % (auto) 16.9 %; Mean Corpuscular Hemoglobin 29.1 pg (25.0-34.0); Mean Corpuscular Hgb Conc 32.6 g/dL (32.0-36.0); Mean Corpuscular Volume 89.3 fL (80.0-100.0); Mean Platelet Volume 13.3 fL (9.4-12.4); Monocytes # (auto) 1.02 K/uL (0.11-0.59); Monocytes % (auto) 9.2 %; Neutrophils # (auto) 7.92 K/uL (1.40-6.50); Neutrophils % (auto) 71.7 %; Platelet Count 157 K/uL (130-400); RDW Coefficient of Variation 15.4 % (11.5-14.5); RDW Standard Deviation 50.1 fL (36.4-46.3); Red Blood Count 4.19 M/uL (4.20-5.40); White Blood Count 11.04 K/ul (4.8-10.8)
[2024-04-22 07:22] LABS: Calcium 9.5 mg/dl (8.6-10.3); Creatinine Clr Calc Pharmacy 41.2 ml/min; Potassium 4.3 mmol/L (3.5-5.1)
[2024-04-22 07:37] LABS: Thyroid Stimulating Hormone 0.185 uIu/ml (0.300-4.500)
--- NOTE | 2024-04-22 07:54 | Hospitalist Progress Note ---
Date of Service April 22, 2024 Assessment & Plan (1) Fall from standing: (2) Acute UTI (urinary tract infection): (3) Laceration of face: (4) Type 2 diabetes mellitus: (5) Diastolic CHF: (6) Atrial fibrillation: Plan Marisa is a 78F with a PMHx of afib/PE/DVT (on Eliquis), CKD3, CHF, hx of endometrial cancer (s/p hysterectomy),DMT2, and hypothyroidism who presents to the ER after a fall being down for ~11 hours. UA concerning for infection, but she does not have dysuria and does not remember falling. [facility] CT without fracture, but does have significant right periorbital ecchymosis. CK was normal # urinary tract infectiondoes not have dysuria however has leukocytosis, UA grossly abnormal urine culture growing greater than 100,000 E. coli, sensitivities pending - continue ciprofloxacin changed to oral plan 5-day course, previous strain of E. coli was resistant to several antibiotics WBC improved from 15-->11 #Fall Cause of fall unclear - possibly caused by UTI, syncopal event is possible Douglas-scanned in the ED: right scalp and facial contusion/hematoma. No acute fractures. PT/OT Check orthostatic VS. IVCD and afib on tele overnight. Continue monitoring tele next 24h for possibility of arrhythmia leading to fall #Multiple Laceration Eyebrow laceration - repaired in the ED 2/4 - suture removal in 57 days. Ice and lubricant eye drops ordered. Left knee laceration - concern for infection so not repaired, can use steri strips TDAP given 2/4 #DMT2 Home meds: Jardiance, metformin 500mg BID, 70unit Tojeo -7U-300, 10units novolog with meals hyperglycemic today so added glargine ordered glargine 30units BID, SSI CF 10, CR 5 BSG ACHS with recurrent UTI should stop Jardiance, would benefit from GLP1 because of morbid obesity BMI of 43, HFpEF, obstructive sleep apnea, diabetes # chronic HFpEF/HTN/ afib Daily standing weights. Dry weight 275 Continue Bumex, metoprolol, spironolactone, losartan-HCTZ EKG with afib on admission HOLD eliquis until tomorrow because of facial contusion/ecchymosis Hypothyroid - continue Synthroid. TSH low at 0.185, T4 pending. Euthyroid sick vs overreplaced. CKD3 - Cr at baseline on admission. Improved from 1.75-->1.6 overnight Gout - continue allopurinol DINESH - continue CPAP at HS Dispo: med/tele Dvt proh: Hold Eliquis given facial bruising CODE STATUS: Full Code - at this time, but on admission patient wanted time to think about, recommend readdressing Admission and Anticipated Discharge Date Admission Date: April 21, 2024 Subjective generally Marisa is feeling better however her face is sore and she feels pretty banged up muscles are generally sore and right knee is sore right eye is still basically swollen shut she cannot recall falling or what precipitated it, no previous history of syncope except for one episode when she was a young woman Physical Exam 2 Physical Exam: PHYSICAL EXAMINATION Last 24h vital signs reviewed, see documentation in flowsheet General: comfortable appearing, no distress HEENT: bilateral periorbital ecchymoses much worse on the right where she is unable to open her eyelid because of edema, sutures intact right lateral eyebrow ecchymosis right neck which is dark purple and not very swollen, no stridor Lungs: Normal respiratory effort. Clear to auscultation bilaterally. No RRW Heart: Regular rate and rhythm, no murmurs. No JVD Abdomen: Soft, nontender, nondistended. Bowel sounds present. Extremities: Warm, dry, well-perfused. bilateral 3+ lower extremity lymphedema and venous stasis disease with varicosities, woody, chronic erythema without warmth. right knee with an abrasion that is covered by foam dressing Neuro: Alert and oriented x 4, face symmetric, moves 4 extremities well Psych: Normal affect and behavior Results & Data Results & Data Vital Signs (Past 12 Hours) Vital Signs Temp Pulse Pulse Resp BP Pulse Ox O2 Del Method 04/22/24 07:52 97.7 F 56 L 16 122/76 98 Room Air 04/22/24 07:37 80 04/22/24 03:54 98.4 F 58 L 17 167/77 H 92 Room Air 04/21/24 23:18 97.9 F 50 L 19 159/63 H 100 Room Air 04/21/24 22:08 56 L 04/21/24 21:37 Room Air Laboratory Results 04/22/24 06:38 04/22/24 06:38 PG Care Time/CCT Total # of Minutes Spent Total Time Spent with Patient: Total time spent is greater than 50% in coordination of care (as documented) at patient's floor/unit and/or counseling patient: Coding Level of Care Code 03121 SUB INP/OBS CARE 3/50MIN Diagnoses Fall from standing W19.XXXA Acute UTI (urinary tract infection) N39.0 Laceration of face S01.81XA Type 2 diabetes mellitus E11.9 Diastolic CHF I50.30 Atrial fibrillation I48.91
[2024-04-22 08:12] LABS: T4 Free Thyroxine 1.76 ng/dl (0.61-1.60)
[2024-04-22] MEDS: POTASSIUM CHLORIDE CRTAB 20 MEQ TABCR PO SCH (09:03)
[2024-04-22] MEDS: SPIRONOLACTONE 25 MG TAB PO SCH (09:04)
[2024-04-22] MEDS: CIPROFLOXACIN 250 MG TAB PO SCH (09:04)
[2024-04-22] MEDS: METOPROLOL SUCC 25MG EXT REL TAB PO SCH (09:06)
[2024-04-22] MEDS: FOLIC ACID 400 MCG TAB PO SCH (09:06)
[2024-04-22] MEDS: LOSARTAN/HCTZ 50/12.5MG TAB PO SCH (09:06)
[2024-04-22] MEDS: EMPAGLIFLOZIN 10 MG TAB PO SCH (09:06)
[2024-04-22] MEDS: allopurinoL 100 MG TAB PO SCH (09:06)
[2024-04-22] MEDS: ACETAMINOPHEN 325 MG TAB PO PRN (09:10)
[2024-04-22] MEDS: LANTUS PER UNIT CHARGE SQ SCH (21:02)
--- NOTE | 2024-04-23 08:47 | Hospitalist Progress Note ---
Date of Service April 23, 2024 Assessment & Plan (1) Fall from standing: (2) Acute UTI (urinary tract infection): (3) Laceration of face: (4) Type 2 diabetes mellitus: (5) Diastolic CHF: (6) Atrial fibrillation: Plan Marisa is a 78F with a PMHx of afib/PE/DVT (on Eliquis), CKD3, CHF, hx of endometrial cancer (s/p hysterectomy),DMT2, and hypothyroidism who presents to the ER after a fall being down for ~11 hours. UA concerning for infection, but she does not have dysuria and does not remember falling. [place] CT without fracture, but does have significant right periorbital ecchymosis. CK was normal # urinary tract infectiondoes not have dysuria however has leukocytosis, UA grossly abnormal urine culture growing greater than 100,000 E. coli, pansensitive - initially was treated with Cipro because of previous sensitivity panels, changed to oral Keflex to complete total 7-day course WBC improved from 15-->11 #Fall - probably related to UTI, symptomatic orthostatic hypotension. BP 120/69 --> 93/56, similar in low 90s with OT +lightheadedness. Also relatively bradycardic in slow afib 30s-40s this AM Douglas-scanned in the ED: right scalp and facial contusion/hematoma. No acute fractures. PT/OT rec rehab stay -hold bumex -stop HCTZ and continue losartan alone -hold metoprolol this AM and reduce to 12.5 mg daily tomorrow -reduce gabapentin from 600 mg tid --> 300 mg tid. she actually does not have any neuropathy pain so we will probably be able to wean this off -monitor tele, orthostatic BP, BP, HR, volume status - interrogate loop recorder. she does have trifascicular block - remains orthostatic today with blood pressure falling roughly 105 down to 92 with standing but did better with PT #Multiple Laceration Eyebrow laceration - repaired in the ED 2/4 - suture removal in 57 days. Ice and lubricant eye drops ordered. Left knee laceration - concern for infection so not repaired, can use steri strips TDAP given 2/4 #DMT2 Home meds: Jardiance, metformin 500mg BID, 70unit Tojeo -7U-300, 10units novolog with meals hyperglycemic today so added glargine ordered glargine 30units BID, SSI CF 10, CR 5 BSG ACHS UTI - held jardiance temporarily, would benefit from GLP1 because of morbid obesity BMI of 43, HFpEF, obstructive sleep apnea, diabetes # chronic HFpEF/HTN/ afib Daily standing weights. Dry weight 275 Home meds: Bumex, metoprolol, spironolactone, losartan-HCTZ, jardiance Med changes as above, reassess EKG with afib on admission resume apixaban Hypothyroid - continue Synthroid. TSH low at 0.185, T4 pending. Euthyroid sick vs overreplaced. CKD3 - Cr at baseline on admission. Improved from 1.75-->1.6 unchanged overnight - Jardiance held currently Gout - continue allopurinol DINESH - continue CPAP at HS Dispo: med/tele Dvt proh: resume apixaban CODE STATUS: Full Code - at this time, wanted time to think about Admission and Anticipated Discharge Date Admission Date: April 21, 2024 Subjective still orthostatic with PT today but did better was able to walk about 25 feet with walker and assistance she has noticed right shoulder decreased mobility feels like she cannot reach across her body is not exactly painful, this she noticed today and it was following her fall facial pain has resolved however it is tender right periorbital swelling has improved Physical Exam 2 Physical Exam: PHYSICAL EXAMINATION Last 24h vital signs reviewed, see documentation in flowsheet General: comfortable appearing, no distress, sitting up in chair HEENT: bilateral periorbital ecchymoses much worse on the right better however and now I can see her sclera and iris/pupil though she cannot fully open eyelid yet, sutures intact right lateral eyebrow ecchymosis right and anterior neck which is dark purple and not swollen, no stridor Lungs: Normal respiratory effort. Clear to auscultation bilaterally. No RRW Heart: Regular rate and rhythm, no murmurs. No JVD Abdomen: Soft, nontender, nondistended. Bowel sounds present. Extremities: Warm, dry, well-perfused. bilateral 3+ lower extremity lymphedema and venous stasis disease with varicosities, woody, chronic erythema without warmth. right knee with a wound that is covered by foam dressing. I did a thorough right shoulder exam she actually has excellent range of motion for her age strength is intact with rotator cuff maneuvers, no swelling shoulders nontender Neuro: Alert and oriented x 4, face symmetric, moves 4 extremities well Psych: Normal affect and behavior Results & Data Results & Data Vital Signs (Past 12 Hours) Vital Signs Temp Pulse Pulse Resp BP Pulse Ox O2 Del Method 04/23/24 08:12 97.9 F 47 L 16 118/52 L 95 Room Air 04/23/24 05:35 59 L 04/23/24 04:30 98.1 F 54 L 18 114/59 L 97 Room Air 04/22/24 23:42 61 04/22/24 23:23 98.1 F 59 L 18 98/62 L 99 Room Air 04/22/24 22:30 Room Air Laboratory Results 04/22/24 06:38 04/22/24 06:38 PG Care Time/CCT Total # of Minutes Spent Total Time Spent with Patient: Total time spent is greater than 50% in coordination of care (as documented) at patient's floor/unit and/or counseling patient: Coding Level of Care Code 05488 SUB INP/OBS CARE 2/35MIN Diagnoses Fall from standing W19.XXXA Acute UTI (urinary tract infection) N39.0 Laceration of face S01.81XA Type 2 diabetes mellitus E11.9 Diastolic CHF I50.30 Atrial fibrillation I48.91
[2024-04-23] MEDS: APIXABAN 5 MG TABLET PO SCH (08:49)
[2024-04-23] MEDS: cephALEXin 500 MG CAP PO SCH (09:37)
[2024-04-23] MEDS: GABAPENTIN 300 MG CAP PO SCH (13:01)
--- NOTE | 2024-04-23 16:51 | XRay Report ---
EXAM: Radiographs of the Right Shoulder Complete 3 Views INDICATION: Posttraumatic pain TECHNIQUE: 3 views of the right shoulder. COMPARISON: No relevant prior studies available. FINDINGS: Bones/joints: There is very minimal spurring of the angle of the acromion. There is very minimal degenerative cortical surface irregularity at the rotator cuff insertion. No fracture, erosion or loose body. Visualized right ribs intact. No dislocation. Soft tissues: No abnormality noted. No radiopaque foreign body noted. IMPRESSION: Mild degenerative changes of the right shoulder. No acute abnormality. ACT 112: Negative or not required by law. Electronically signed by Vonda Bryant 04-23-2024 4:50 PM
[2024-04-23] MEDS: SIMVASTATIN 40 MG TAB PO SCH (20:27)
[2024-04-24] MEDS: BUMETANIDE 1 MG TAB PO SCH (07:58)
[2024-04-24] MEDS: METOPROLOL SUCC 25MG EXT REL TAB PO SCH (07:58)
[2024-04-24] MEDS: LOSARTAN POTASSIUM 25 MG TAB PO SCH (07:58)
[2024-04-24] MEDS: GABAPENTIN 100 MG CAP PO SCH (08:59)
--- NOTE | 2024-04-24 18:19 | Hospitalist Progress Note ---
Date of Service April 24, 2024 Assessment & Plan (1) Fall from standing: (2) Acute UTI (urinary tract infection): (3) Laceration of face: (4) Type 2 diabetes mellitus: (5) Diastolic CHF: (6) Atrial fibrillation: Plan Marisa is a 78F with a PMHx of afib/PE/DVT (on Eliquis), CKD3, CHF, hx of endometrial cancer (s/p hysterectomy),DMT2, and hypothyroidism who presents to the ER after a fall being down for ~11 hours. UA concerning for infection, but she does not have dysuria and does not remember falling. [facility] CT without fracture, but does have significant right periorbital ecchymosis. CK was normal # urinary tract infectiondoes not have dysuria however has leukocytosis, UA grossly abnormal urine culture growing greater than 100,000 E. coli, pansensitive - initially was treated with Cipro because of previous sensitivity panels, changed to oral Keflex to complete total 7-day course WBC improved from 15-->11. Am CBC ordered #Fall - probably related to UTI, symptomatic orthostatic hypotension. BP 120/69 --> 93/56, similar in low 90s with OT +lightheadedness. Also relatively bradycardic in slow afib 30s-40s 2/ Douglas-scanned in the ED: right scalp and facial contusion/hematoma. No acute fractures. PT/OT rec rehab stay symptomatically improved and was not lightheaded and able to walk today but blood pressure still dropped into the 80s on standing potentially she could have been tipped over into hypovolemia from recent addition of Jardiance - resume Bumex at reduced dose 3 mg daily -stopped HCTZ and continue losartan alone - reduced dose to 12.5 - continue metoprolol succinate at a reduced dose 12.5 mg daily -reduce gabapentin from 600 mg tid --> 200 mg tid. she actually does not have any neuropathy pain so we will probably be able to wean this off -monitor tele, orthostatic BP, BP, HR, volume status - interrogate loop recorder. 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 Left knee laceration - concern for infection so not repaired, can use steri strips TDAP given 04/21 #DMT2 Home meds: Jardiance, metformin 500mg BID, 70unit Tojeo -7U-300, 10units novolog with meals ordered glargine 30units BID, SSI CF 10, CR 5 BSG ACHS BG control better today, a bit labile, no changes made Jardiance held at this point because of orthostatic hypotension and UTI, would benefit from GLP1 because of morbid obesity BMI of 43, HFpEF, obstructive sleep apnea, diabetes # chronic HFpEF/HTN/ afib Home meds: Bumex, metoprolol, spironolactone, losartan-HCTZ, jardiance Med changes as above, reassess. weight is down more than 10 pounds since admission however these are bed weights and may be inaccurate EKG with afib on admission continue apixaban Hypothyroid - continue Synthroid. TSH was normal 2 months ago. TSH low at 0.185, T4 1.76. Euthyroid sick vs overreplaced. CKD3 - Cr at baseline on admission. Improved from 1.75-->1.6 unchanged overnight - Jardiance held currently - AM BMP Gout - continue allopurinol DINESH - continue CPAP at HS Dispo: med/tele Dvt proh: apixaban CODE STATUS: Full Code - at this time, wanted time to think about I updated her sister in the room last on 04/22 Admission and Anticipated Discharge Date Admission Date: April 24, 2024 Subjective Marisa is slowly doing better, her face remains tender, she is starting to be able to see out of her right eye a little bit but not ready to read. She did better with PT today her blood pressure still fell to the 80s however she was not lightheaded and tolerated some ambulation Physical Exam 2 Physical Exam: PHYSICAL EXAMINATION Last 24h vital signs reviewed, see documentation in flowsheet General: comfortable appearing, no distress, reclining in bed HEENT: bilateral periorbital ecchymoses much worse on the right better however and now she is able to open her eyelid [facility], sutures intact right lateral eyebrow ecchymosis right and anterior neck which is dark purple and not swollen Lungs: Normal respiratory effort. Clear to auscultation bilaterally. No RRW Heart: Regular rate and rhythm, no murmurs. No JVD Abdomen: Soft, nontender, nondistended. Bowel sounds present. Extremities: Warm, dry, well-perfused. bilateral 3+ lower extremity lymphedema and venous stasis disease with varicosities, woody, chronic erythema without warmth. right knee with a wound that is covered by foam dressing. Neuro: Alert and oriented x 4, face symmetric, moves 4 extremities well Psych: Normal affect and behavior Results & Data Results & Data Vital Signs (Past 12 Hours) Vital Signs Temp Pulse Pulse Resp BP Pulse Ox O2 Del Method 04/24/24 18:04 04/24/24 16:48 97.7 F 85 18 118/66 94 Room Air 04/24/24 13:16 58 L 04/24/24 12:46 96 04/24/24 12:07 Room Air 04/24/24 07:48 98.2 F 45 L 18 127/50 L 96 Room Air O2 Del Method 04/24/24 18:04 Room Air 04/24/24 16:48 04/24/24 13:16 04/24/24 12:46 04/24/24 12:07 04/24/24 07:48 Laboratory Results 04/22/24 06:38 04/22/24 06:38 PG Care Time/CCT Total # of Minutes Spent Total Time Spent with Patient: Total time spent is greater than 50% in coordination of care (as documented) at patient's floor/unit and/or counseling patient: Coding Level of Care Code 17163 SUB INP/OBS CARE 2/35MIN Diagnoses Fall from standing W19.XXXA Acute UTI (urinary tract infection) N39.0 Laceration of face S01.81XA Type 2 diabetes mellitus E11.9 Diastolic CHF I50.30 Atrial fibrillation I48.91
[2024-04-25] MEDS: ARTIFICIAL TEARS OPB PRN (05:20)
[2024-04-25 05:57] LABS: Hematocrit (blood only) 35.3 % (37.0-47.0); Hemoglobin 11.5 g/dl (12.0-16.0); Mean Corpuscular Hemoglobin 29.6 pg (25.0-34.0); Mean Corpuscular Hgb Conc 32.6 g/dL (32.0-36.0); Mean Platelet Volume 12.9 fL (9.4-12.4); Platelet Count 144 K/uL (130-400); RDW Coefficient of Variation 15.3 % (11.5-14.5); RDW Standard Deviation 50.5 fL (36.4-46.3); Red Blood Count 3.88 M/uL (4.20-5.40); White Blood Count 9.72 K/ul (4.8-10.8)
[2024-04-25 06:12] LABS: BUN Creatinine Ratio 27.2 (10-20); Potassium 4.2 mmol/L (3.5-5.1)
[2024-04-25] MEDS: LOSARTAN POTASSIUM 25 MG TAB PO SCH (08:00)
--- NOTE | 2024-04-25 17:37 | Hospitalist Progress Note ---
Date of Service April 25, 2024 Assessment & Plan (1) Fall from standing: (2) Acute UTI (urinary tract infection): (3) Laceration of face: (4) Type 2 diabetes mellitus: (5) Diastolic CHF: (6) Atrial fibrillation: Plan Marisa is a 78F with a PMHx of afib/PE/DVT (on Eliquis), CKD3, CHF, hx of endometrial cancer (s/p hysterectomy),DMT2, and hypothyroidism who presents to the ER after a fall being down for ~11 hours. UA concerning for infection, but she does not have dysuria and does not remember falling. [place] CT without fracture, but does have significant right periorbital ecchymosis. CK was normal # urinary tract infectiondoes not have dysuria however has leukocytosis, UA grossly abnormal urine culture growing greater than 100,000 E. coli, pansensitive - initially was treated with Cipro because of previous sensitivity panels, changed to oral Keflex to complete total 7-day course WBC normalized to 9 today #Fall - probably related to UTI, symptomatic orthostatic hypotension. Also bradycardic in slow afib Douglas-scanned in the ED: right scalp and facial contusion/hematoma. No acute fractures. PT/OT rec rehab stay Loop recorder was interrogated, I reviewed the data today there were no significant arrhythmias which would have: Caused her to fall or have syncope, she is mostly in sinus rhythm sometimes A-fib tachycardia extremely rare symptomatically improved and was not lightheaded and able to walk today but blood pressure still dropped into the 80s on standing potentially she could have been tipped over into hypovolemia from recent addition of Jardiance - resumed Bumex at reduced dose 3 mg daily - creatinine up to 1.8 with this, continue to monitor BMP -stopped HCTZ and continue losartan alone - reduced dose to 12.5 - heart rates have been in the 40s with A-fib even on reduced metoprolol, held metoprolol -reduce gabapentin from 600 mg tid --> 100 mg tid. she actually does not have any neuropathy pain so we will probably be able to wean this off -monitor tele, orthostatic BP, BP, HR, volume status #Multiple Laceration Eyebrow laceration - repaired in the ED 2/4 - suture removal probably tomorrow Ice and lubricant eye drops ordered. Left knee laceration - concern for infection so not repaired, continue wound care TDAP given 2/ #DMT2 Home meds: Jardiance, metformin 500mg BID, 70unit Tojeo -7U-300, 10units novolog with meals ordered glargine 30units BID, SSI CF 10, CR 5 BSG ACHS BG a bit labile, no changes made Jardiance held at this point because of orthostatic hypotension and UTI, would benefit from GLP1 because of morbid obesity BMI of 43, HFpEF, obstructive sleep apnea, diabetes # chronic HFpEF/HTN/ afib Home meds: Bumex, metoprolol, spironolactone, losartan-HCTZ, jardiance heart failure clinic notes indicate that she is suspected to have leg edema from venous stasis and lymphedema and may not actually have heart failure at all Med changes as above, reassess. weight is down 14 pounds since admission however these are bed weights and may be inaccurate - edema is better however EKG with afib on admission continue apixaban Hypothyroid - continue Synthroid. TSH was normal 2 months ago. TSH low at 0.185, T4 1.76. Euthyroid sick vs overreplaced. CKD3 - Cr at baseline on admission. 1.86 today after resuming Bumex - Jardiance held currently - AM BMP Gout - continue allopurinol DINESH - continue CPAP at HS Dispo: med/tele Dvt proh: apixaban CODE STATUS: Full Code - at this time, wanted time to think about I discussed disposition with her today as well as with the healthcare interpreter at this time and he thinks she would prefer [facility] because it is closer to her home and her sisters Admission and Anticipated Discharge Date Admission Date: April 24, 2024 Subjective as he feeling okay, right eye/forehead is still sore but now she has her eye open and can read yesterday she was able to walk with PT did not get lightheaded though blood pressure dropped to 83/44 standing Physical Exam 2 Physical Exam: PHYSICAL EXAMINATION Last 24h vital signs reviewed, see documentation in flowsheet General: sitting in bed reading HEENT: bilateral periorbital ecchymoses much worse on the right now can mostly open her right eyelid, sutures intact right lateral eyebrow ecchymosis right and anterior neck which is dark purple and not swollen Lungs: Normal respiratory effort. Clear to auscultation bilaterally. No RRW Heart: Regular rate and rhythm, no murmurs. No JVD Abdomen: Soft, nontender, nondistended. Bowel sounds present. Extremities: Warm, dry, well-perfused. bilateral 3+ lower extremity lymphedema and venous stasis disease with varicosities, woody, chronic erythema without warmth. improved since admission right knee with a wound that is covered by foam dressing. Neuro: Alert and oriented x 4, face symmetric, moves 4 extremities well Psych: Normal affect and behavior Results & Data Results & Data Vital Signs (Past 12 Hours) Vital Signs Temp Pulse Pulse Resp BP Pulse Ox O2 Del Method 04/25/24 17:03 97.9 F 63 18 133/68 98 Room Air 04/25/24 16:00 59 L 04/25/24 11:29 97.7 F 60 18 132/62 100 Room Air 04/25/24 09:40 Room Air 04/25/24 07:23 97.7 F 44 L 18 128/56 L 98 Room Air 04/25/24 07:00 42 L Laboratory Results 04/25/24 05:11 04/25/24 05:11 PG Care Time/CCT Total # of Minutes Spent Total Time Spent with Patient: Total time spent is greater than 50% in coordination of care (as documented) at patient's floor/unit and/or counseling patient: Coding Level of Care Code 13686 SUB INP/OBS CARE 3/50MIN Diagnoses Fall from standing W19.XXXA Acute UTI (urinary tract infection) N39.0 Laceration of face S01.81XA Type 2 diabetes mellitus E11.9 Diastolic CHF I50.30 Atrial fibrillation I48.91
[2024-04-26 05:55] LABS: BUN Creatinine Ratio 30.9 (10-20); Calcium 9.2 mg/dl (8.6-10.3); Creatinine Clr Calc Pharmacy 38.8 ml/min; Potassium 4.4 mmol/L (3.5-5.1)
--- NOTE | 2024-04-26 17:42 | Hospitalist Progress Note ---
Date of Service April 26, 2024 Assessment & Plan (1) Fall from standing: (2) Acute UTI (urinary tract infection): (3) Laceration of face: (4) Type 2 diabetes mellitus: (5) Diastolic CHF: (6) Atrial fibrillation: Plan Marisa is a 78F with a PMHx of afib/PE/DVT (on Eliquis), CKD3, CHF, hx of endometrial cancer (s/p hysterectomy),DMT2, and hypothyroidism who presents to the ER after a fall being down for ~11 hours. UA concerning for infection, but she does not have dysuria and does not remember falling. [place] CT without fracture, but does have significant right periorbital ecchymosis. CK was normal # urinary tract infectiondoes not have dysuria however has leukocytosis, UA grossly abnormal urine culture growing greater than 100,000 E. coli, pansensitive - initially was treated with Cipro because of previous sensitivity panels, changed to oral Keflex to complete total 7-day course WBC normalized to 9 #Fall - probably related to UTI, symptomatic orthostatic hypotension. Also bradycardic in slow afib Douglas-scanned in the ED: right scalp and facial contusion/hematoma. No acute fractures. PT/OT rec rehab stay Loop recorder was interrogated, I reviewed the data 04/25 there were no significant arrhythmias which would have caused her to fall or have syncope, she is mostly in sinus rhythm sometimes A-fib tachycardia extremely rare symptomatically improved and was not lightheaded and able to walk 04/25 but blood pressure still dropped into the 80s on standing potentially she could have been tipped over into hypovolemia from recent addition of Jardiance - resumed Bumex at reduced dose 3 mg daily - Cr 1.65 near/at baseline, AM BMP mag -stopped HCTZ and continue losartan alone - reduced dose to 12.5 - heart rates have been in the 40s with A-fib even on reduced metoprolol, held metoprolol - rates remain low on tele review -reduce gabapentin from 600 mg tid --> 100 mg tid. she actually does not have any neuropathy pain so we will probably be able to wean this off -monitor tele, orthostatic BP, BP, HR, volume status #Multiple Laceration Eyebrow laceration - repaired in the ED 04/21 - suture removal defer to tomorrow Ice and lubricant eye drops ordered. Left knee laceration - concern for infection so not repaired, continue wound care TDAP given 2/4 #DMT2 Home meds: Jardiance, metformin 500mg BID, 70unit Tojeo -7U-300, 10units novolog with meals ordered glargine 30units BID, SSI CF 10, CR 5 BSG ACHS BG a bit labile, no changes made Jardiance held at this point because of orthostatic hypotension and UTI, would benefit from GLP1 because of morbid obesity BMI of 43, HFpEF, obstructive sleep apnea, diabetes # chronic HFpEF/HTN/ afib Home meds: Bumex, metoprolol, spironolactone, losartan-HCTZ, jardiance heart failure clinic notes indicate that she is suspected to have leg edema from venous stasis and lymphedema and may not actually have heart failure at all Med changes as above yesterday - BG at goal today. weight is down 16 pounds since admission however these are bed weights and may be inaccurate - edema is much better however EKG with afib on admission continue apixaban - CBC in am monitor Hg Hypothyroid - continue Synthroid. TSH was normal 2 months ago. TSH low at 0.185, T4 1.76. Euthyroid sick vs overreplaced. CKD3 - Cr at baseline on admission. 1.65 today after resuming Bumex x 2d - Jardiance held currently - AM BMP Gout - continue allopurinol DINESH - continue CPAP at HS Dispo: med/tele Dvt proh: apixaban CODE STATUS: Full Code - at this time, wanted time to think about Marisa prefers SNF at [facility]- discussed today Admission and Anticipated Discharge Date Admission Date: April 24, 2024 Subjective Marisa is doing ok, R brow is sore, can open eye but not see to the lateral very well Breathing is at baseline, no pain, leg edema has improved Physical Exam 2 Physical Exam: PHYSICAL EXAMINATION Last 24h vital signs reviewed, see documentation in flowsheet General: awake in bed HEENT: bilateral periorbital ecchymoses much worse on the right now can mostly open her right eyelid, sutures intact right lateral eyebrow ecchymosis right and anterior neck which is dark purple and not swollen Lungs: Normal respiratory effort. Clear to auscultation bilaterally. No RRW Heart: Regular rate and rhythm, no murmurs. No JVD Abdomen: Soft, nontender, nondistended. Bowel sounds present. Extremities: Warm, dry, well-perfused. bilateral 3+ lower extremity lymphedema and venous stasis disease with varicosities, woody, chronic erythema without warmth. improved since admission right knee with a wound that is covered by foam dressing. Neuro: Alert and oriented x 4, face symmetric, moves 4 extremities well Psych: Normal affect and behavior Results & Data Results & Data Vital Signs (Past 12 Hours) Vital Signs Temp Pulse Pulse Resp BP Pulse Ox O2 Del Method 04/26/24 15:55 98.2 F 68 18 130/77 97 Room Air 04/26/24 13:20 75 04/26/24 11:23 98.1 F 53 L 18 127/60 97 Room Air 04/26/24 07:42 97.9 F 47 L 18 144/56 H 97 Room Air 04/26/24 07:37 Room Air 04/26/24 05:45 50 L Laboratory Results 04/25/24 05:11 04/26/24 05:20 PG Care Time/CCT Total # of Minutes Spent Total Time Spent with Patient: Total time spent is greater than 50% in coordination of care (as documented) at patient's floor/unit and/or counseling patient: Coding Level of Care Code 26350 SUB INP/OBS CARE 2/35MIN Diagnoses Fall from standing W19.XXXA Acute UTI (urinary tract infection) N39.0 Laceration of face S01.81XA Type 2 diabetes mellitus E11.9 Diastolic CHF I50.30 Atrial fibrillation I48.91
[2024-04-27] MEDS: GABAPENTIN 100 MG CAP PO SCH (07:12)
[2024-04-27 08:09] LABS: Hematocrit (blood only) 38.1 % (37.0-47.0); Hemoglobin 12.2 g/dl (12.0-16.0); Mean Corpuscular Hemoglobin 29.1 pg (25.0-34.0); Mean Corpuscular Volume 90.9 fL (80.0-100.0); Mean Platelet Volume 12.6 fL (9.4-12.4); Platelet Count 150 K/uL (130-400); RDW Coefficient of Variation 15.2 % (11.5-14.5); RDW Standard Deviation 50.2 fL (36.4-46.3); Red Blood Count 4.19 M/uL (4.20-5.40); White Blood Count 8.98 K/ul (4.8-10.8)
[2024-04-27 08:31] LABS: BUN Creatinine Ratio 27.9 (10-20); Calcium 9.4 mg/dl (8.6-10.3); Creatinine Clr Calc Pharmacy 38.6 ml/min; Magnesium 2.2 mg/dl (1.7-2.4); Potassium 4.6 mmol/L (3.5-5.1)
--- NOTE | 2024-04-27 19:24 | Hospitalist Progress Note ---
Date of Service April 27, 2024 Assessment & Plan (1) Fall from standing: (2) Acute UTI (urinary tract infection): (3) Laceration of face: (4) Type 2 diabetes mellitus: (5) Diastolic CHF: (6) Atrial fibrillation: Plan Marisa is a 78F with a PMHx of afib/PE/DVT (on Eliquis), CKD3, CHF, hx of endometrial cancer (s/p hysterectomy),DMT2, and hypothyroidism who presents to the ER after a fall being down for ~11 hours. UA concerning for infection, but she does not have dysuria and does not remember falling. [place] CT without fracture, but does have significant right periorbital ecchymosis. CK was normal Marisa was treated for UTI this admission. When physical therapy evaluated her last week day after admission, her standing blood pressure fell to 80/50s and she was highly symptomatic with lightheadedness and weakness and initially unable to walk or stand. She was also very bradycardic on her usual dose of metoprolol, in the 40s which was a contributor. Her fall was probably triggered by severe orthostatic hypotension and bradycardia exacerbated by UTI. She has complex chronic medical conditions including atrial fibrillation, heart failure, diabetes, morbid obesity, lymphedema and CKD-3. She required multiple medications adjustments on at least a daily basis through 04/27 to improve her standing blood pressure and ability to tolerate standing and ambulation. Standing BP remained low with SBP in 80-90 range through today when it was 125/88. These types of adjustment and monitoring would have been impossible to make in an outpatient setting and she had exceedingly high fall risk, in fact came in after a fall which resulted in significant facial trauma and severe laceration over her knee. She will require SNF stay for rehab to regain her functional mobility and safety with ambulation and transfers. # urinary tract infectiondoes not have dysuria however had leukocytosis, UA grossly abnormal urine culture growing greater than 100,000 E. coli, pansensitive - initially was treated with Cipro because of previous sensitivity panels, changed to oral Keflex to complete total 7-day course WBC normalized to 9 #Fall - probably related to UTI, symptomatic orthostatic hypotension, bradycardia. potentially she could have been tipped over into hypovolemia from recent addition of Jardiance Douglas-scanned in the ED: right scalp and facial contusion/hematoma. No acute fractures. PT/OT rec rehab stay Loop recorder was interrogated, I reviewed the data 04/25 there were no significant arrhythmias which would have caused her to fall or have syncope, she is mostly in sinus rhythm sometimes A-fib tachycardia extremely rare # severe symptomatic orthostatic hypotension -initially held diuretics, eventually resumed Bumex at reduced dose 3 mg daily - Cr remains 1.65 near/at baseline -stopped HCTZ and continue losartan alone - reduced dose of losartan to 12.5 - heart rates have been in the 40s with A-fib even on reduced metoprolol, stopped metoprolol - rates remain low on tele review -reduce gabapentin from 600 mg tid --> 100 mg tid. she actually does not have any neuropathy pain so we will probably be able to wean this off -monitor tele, orthostatic BP, BP, HR, volume status #Multiple Laceration Eyebrow laceration - repaired in the ED 04/21 - suture removal requested by nursing Ice and lubricant eye drops ordered. Left knee laceration - concern for infection so not repaired, continue wound care - reviewed wound RN recs today and photo - needs outpatient follow up in wound clinic TDAP given 04/21 #DMT2 Home meds: Jardiance, metformin 500mg BID, 70unit Tojeo -7U-300, 10units novolog with meals ordered glargine 30units BID, SSI CF 10, CR 5 BSG ACHS BG a bit labile, no changes made Jardiance held at this point because of orthostatic hypotension and UTI, would benefit from GLP1 because of morbid obesity BMI of 43, HFpEF, obstructive sleep apnea, diabetes # chronic HFpEF/HTN/ afib Home meds: Bumex, metoprolol, spironolactone, losartan-HCTZ, jardiance heart failure clinic notes indicate that she is suspected to have leg edema from venous stasis and lymphedema and unclear whether heart failure. I think respiratory status did improve with resuming bumex, however. Med changes as above yesterday - BG at goal today. weight is down 17 pounds since admission - edema is much better EKG with afib on admission continue apixaban - CBC today reviewed Hg unchanged Hypothyroid - continue Synthroid. TSH was normal 2 months ago. TSH low at 0.185, T4 1.76. Euthyroid sick vs overreplaced. CKD3 - Cr at baseline on admission. 1.65 today after resuming Bumex x 3d at lower dose - Jardiance held currently Gout - continue allopurinol DINESH - continue CPAP at HS Dvt proh: apixaban CODE STATUS: Full Code - at this time, wanted time to think about Marisa prefers SNF at [facility]- discussed with care coord Admission and Anticipated Discharge Date Admission Date: April 24, 2024 Subjective Marisa is doing ok today, I saw her up on the chair then up on the commode She's concerned about letter from insurance stating she didn't meet inpatient criteria, I gave the best explanation I could and contacted care coord to follow up. Physical Exam 2 Physical Exam: PHYSICAL EXAMINATION Last 24h vital signs reviewed, see documentation in flowsheet General: alert sitting in chair HEENT: bilateral periorbital ecchymoses much worse on the right now can mostly open her right eyelid, sutures intact right lateral eyebrow, hematoma/swelling above L eye unchanged ecchymosis right and anterior neck which is dark purple and not swollen Lungs: Normal respiratory effort. Clear to auscultation bilaterally. No RRW Heart: Regular rate and rhythm, no murmurs. No JVD Abdomen: Soft, nontender, nondistended. Bowel sounds present. Extremities: Warm, dry, well-perfused. bilateral 3+ lower extremity lymphedema and venous stasis disease with varicosities, woody, chronic erythema without warmth. improved since admission right knee with a wound that is covered by foam dressing. Reviewed photo of this today, appears clean, gaps widely, no surrounding cellulitis Neuro: Alert and oriented x 4, face symmetric, moves 4 extremities well Psych: Normal affect and behavior Results & Data Results & Data Vital Signs (Past 12 Hours) Vital Signs Temp Pulse Pulse Resp BP BP Pulse Ox 04/27/24 15:42 97.5 F L 89 18 127/70 99 04/27/24 12:42 73 04/27/24 11:19 97.3 F L 69 16 124/78 99 04/27/24 07:31 97.3 F L 42 L 14 158/67 H 97 04/27/24 07:14 O2 Del Method 04/27/24 15:42 Room Air 04/27/24 12:42 04/27/24 11:19 Room Air 04/27/24 07:31 Room Air 04/27/24 07:14 Room Air Laboratory Results 04/27/24 07:36 04/27/24 07:36 PG Care Time/CCT Total # of Minutes Spent Total Time Spent with Patient: Total time spent is greater than 50% in coordination of care (as documented) at patient's floor/unit and/or counseling patient: Coding Level of Care Code 79178 SUB INP/OBS CARE 2/35MIN Diagnoses Fall from standing W19.XXXA Acute UTI (urinary tract infection) N39.0 Laceration of face S01.81XA Type 2 diabetes mellitus E11.9 Diastolic CHF I50.30 Atrial fibrillation I48.91
[2024-04-28 07:30] VITALS: RESP 16
[2024-04-28 11:35] VITALS: PULSE 71; TEMP 97.7; O2SAT 100
--- NOTE | 2024-04-28 13:26 | Discharge Summary ---
Discharge Summary Date of Service April 28, 2024 Principal Dx & Hospital Course #1 = Principal Diagnosis (1) Fall from standing: (2) Acute UTI (urinary tract infection): (3) Laceration of face: (4) Type 2 diabetes mellitus: (5) Diastolic CHF: (6) Atrial fibrillation: Plan Marisa is a 78F with a PMHx of afib/PE/DVT (on Eliquis), CKD3, CHF, hx of endometrial cancer (s/p hysterectomy),DMT2, and hypothyroidism who presents to the ER after a fall being down for ~11 hours. UA concerning for infection, but she does not have dysuria and does not remember falling. [place] CT without fracture, but does have significant right periorbital ecchymosis. CK was normal Marisa was treated for UTI this admission. When physical therapy evaluated her last week day after admission, her standing blood pressure fell to 80/50s and she was highly symptomatic with lightheadedness and weakness and initially unable to walk or stand. She was also very bradycardic on her usual dose of metoprolol, in the 40s which was a contributor. Her fall was probably triggered by severe orthostatic hypotension and bradycardia exacerbated by UTI. She has complex chronic medical conditions including atrial fibrillation, heart failure, diabetes, morbid obesity, lymphedema and CKD-3. She required multiple medications adjustments on at least a daily basis through 04/27 to improve her standing blood pressure and ability to tolerate standing and ambulation. Standing BP remained low with SBP in 80-90 range through today when it was 125/88. These types of adjustment and monitoring would have been impossible to make in an outpatient setting and she had exceedingly high fall risk, in fact came in after a fall which resulted in significant facial trauma and severe laceration over her knee. She will require SNF stay for rehab to regain her functional mobility and safety with ambulation and transfers. # urinary tract infectiondoes not have dysuria however had leukocytosis, UA grossly abnormal urine culture growing greater than 100,000 E. coli, pansensitive - initially was treated with Cipro because of previous sensitivity panels, changed to oral Keflex to complete total 7-day course WBC normalized to 9 #Fall - probably related to UTI, symptomatic orthostatic hypotension, bradycardia. potentially she could have been tipped over into hypovolemia from recent addition of Jardiance Douglas-scanned in the ED: right scalp and facial contusion/hematoma. No acute fractures. PT/OT rec rehab stay Loop recorder was interrogated, I reviewed the data 04/25 there were no significant arrhythmias which would have caused her to fall or have syncope, she is mostly in sinus rhythm sometimes A-fib tachycardia extremely rare # severe symptomatic orthostatic hypotension -initially held diuretics, eventually resumed Bumex at reduced dose 3 mg daily - Cr remains 1.65 near/at baseline -stopped HCTZ and continue losartan alone - reduced dose of losartan to 12.5 - heart rates have been in the 40s with A-fib even on reduced metoprolol, s topped metoprolol - rates remain low on tele review -reduce gabapentin from 600 mg tid --> 100 mg tid. she actually does not have any neuropathy pain so we will probably be able to wean this off -monitor tele, orthostatic BP, BP, HR, volume status #Multiple Laceration Eyebrow laceration - repaired in the ED 04/21 - suture removal requested by nursing Ice and lubricant eye drops ordered. Left knee laceration - concern for infection so not repaired, continue wound care - reviewed wound RN recs today and photo - needs outpatient follow up in wound clinic TDAP given 04/21 #DMT2 Home meds: Jardiance, metformin 500mg BID, 70unit Tojeo -7U-300, 10units novolog with meals ordered glargine 30units BID, SSI CF 10, CR 5 BSG ACHS BG a bit labile, no changes made Jardiance held at this point because of orthostatic hypotension and UTI, would benefit from GLP1 because of morbid obesity BMI of 43, HFpEF, obstructive sleep apnea, diabetes # chronic HFpEF/HTN/ afib Home meds: Bumex, metoprolol, spironolactone, losartan-HCTZ, jardiance heart failure clinic notes indicate that she is suspected to have leg edema from venous stasis and lymphedema and unclear whether heart failure. I think respiratory status did improve with resuming bumex, however. Med changes as above yesterday - BG at goal today. weight is down 17 pounds since admission - edema is much better EKG with afib on admission continue apixaban - CBC today reviewed Hg unchanged Hypothyroid - continue Synthroid. TSH was normal 2 months ago. TSH low at 0.185, T4 1.76. Euthyroid sick vs overreplaced. CKD3 - Cr at baseline on admission. 1.65 today after resuming Bumex x 3d at lower dose - Jardiance held currently Gout - continue allopurinol DINESH - continue CPAP at HS Dvt proh: apixaban CODE STATUS: Full Code - at this time, wanted time to think about Marisa prefers SNF at [facility]- discussed with care coord Admission HPI Per Admitting Provider Marisa is a 78F with a PMHx of afib/PE/DVT (on Eliquis), CKD3, CHF, hx of endometrial cancer (s/p hysterectomy), DMT2, and hypothyroidism who presents to the ER after a fall. Fell last night going to the bathroom, but does not recall the fall. Has been feeling well recently. No changes in appetite, nausea, vomiting or diarrhea. No cough or cold symptoms. No urinary symptoms. BSGs have been a little high but recently had a steroid injection. Denies lightheadedness or dizziness. ED COurse: Ceftriaxone 2g IV x 1 500 CC nSS TDAP vaccine Discharge Plan Discharge Items Patient Disposition: Transfer [facility] Fac Reason For Visit: FALL, UTI Discharge Diagnosis: 1. fall - likely due to severe orthostatic hypotension 2. head injury due to #1 3. probable concussion with ongoing headache 4. facial laceration s/p repair; sutures have been removed 5. right knee laceration 6. extensive ecchymoses of face/neck 7. e.coli UTI 8. atrial fibrillation 9. nocturnal bradycardia - ongoing observation needed with Dr Smith Hobbs, [facility] Cardiology 10. h/o DVT & PE 11. DINESH on CPAP 12. chronic diastolic CHF 13. diabetes 14. hypothyroidism 15. presence of loop recorder Activity: Resume your previous activity Non-emergency contact: Primary Care Provider and Principal System Software Engineer Call non-emergency contact if: you have any medication questions, your symptoms worsen, your pain is not controlled, your pain is worsening and you have a fever Follow-up/Referrals: Sarah Mathew DO, FACEP [Physician] - (right knee laceration - 1-2 weeks if possible (or any provider in Wound care clinic) ) Bill Hobbs MD [Physician] - (2-3 weeks - follow-up of bradycardia, a.fib, etc.) Jeni Tracey PA-C [Physician Machine Molder] - (1-2 weeks) Jostin Palomares, [Primary Care Provider] - Diet: Carb Consistent or DM2 and Heart Healthy Fluids: 1800ml (7 cups) Addtl Attending Provider Instructions: Ms Milner was hospitalized after suffering a fall. The fall led to a significant head injury with facial laceration requiring repair (sutures now removed), hematoma near the right eye, extensive bruising over the face & neck, etc. Suspect a concussion as she continues with headaches at times. Fall was likely precipitated by severe orthostatic hypotension in the setting of UTI. UTI was treated with IV/oral antibiotics; course has been completed. Orthostatic hypotension now resolved following adjustment of multiple cardiac medications including her diuretics. A.fib - loop recorder interrogated - when in a.fib her heart rates drop to the 40s/50s with sleep. When awake heart rates are normal in the 60s to 80s range. [facility] Cardiology aware of the above and requests follow-up in the CHF clinic as well electrophysiology clinic. Recommendations - 1. check BSGs ac/hs 2. PT, OT - eval & Rx 3. warm compresses to face as much as possible over the next 1-2 weeks 4. wound care to right elbow region skin tear and laceration over the right knee 5. follow-up [facility] in 1-2 weeks to recheck #4 6. daily standing scale weights; call medical scientific liaison if any weight gain of more than 3 pounds over a 1-2 day period 7. orthostatic BPs IF any dizziness/lightheadedness 8. follow-up appointments - see separate section It was our pleasure to care for Ms Milner! Pending Studies at Discharge: No Stand-Alone Forms: My [facility] Skilled Items Patient informed of condition?: Yes DNR: No Discharge Level of Care: Skilled Communicable Disease: No Discharge Prognosis: Stable Lines: None Urinary Catheter: No Medications and DC Order Prescriptions: New losartan 25 mg Tablet 12.5 mg PO QAM Qty: 30 0RF insulin glargine [Lantus U-100 Insulin] 100 unit/mL Solution 30 unit subcut BID Qty: 10 0RF Continued (DME) blood sugar diagnostic Strip See Dose Instructions .ROUTE .MEDSUPPLY Qty: 400 3RF Rx Instructions: use to test blood sugar 3 TIMES DAILY DX E11.65 Z79.4 (DME) insulin syringe-needle U-100 [BD Insulin Syringe Ultra-Fine] 1 mL 31 gauge x 5/16 syringe See Dose Instructions .ROUTE .MEDSUPPLY Qty: 100 11RF Dose Instruction: As directed Rx Instructions: use 5 times daily or as directed allopurinol 100 mg tablet 100 mg PO DAILY Qty: 90 3RF (DME) pen needle, diabetic 32 gauge x 3/16" needle See Rx Instructions .Route Qty: 100 12RF Rx Instructions: Use once daily with Toujeo pen DX:E11.9 (DME) OneTouch Ultra Test Strip See Rx Instructions .Route Qty: 100 12RF Rx Instructions: As directed test 3 times a day Eliquis 5 mg tablet 5 mg PO BID Qty: 180 3RF potassium chloride 20 mEq tablet extended release 20 meq PO DAILY Qty: 90 3RF Hold Instructions: hyperkalemia levothyroxine [Synthroid] 137 mcg tablet 137 mcg PO QAM Qty: 90 3RF simvastatin 40 mg tablet 40 mg PO HS Qty: 90 3RF Rx Instructions: TAKE 1 TABLET BY MOUTH AT BEDTIME (DME) compress.stocking,knee,reg,med Misc See Rx Instructions .Route Qty: 2 0RF Rx Instructions: knee high compression stockings, QTY 2 LT & 2 RT @ 20/30 mmHg mometasone [Nasonex 24hr Allergy] 50 mcg/actuation spray,non-aerosol 2 spray intranasal DAILY Rx Instructions: administer into each nostril olopatadine [Pataday Once Daily Relief] 0.2 % drops 1 drp ophthalmic (eye) DAILY PRN (Reason: ITCHY EYES) mupirocin 2 % ointment 1 applic topical BID PRN (Reason: Dry Nasal Passages) mecobalamin (vitamin B12) 500 mcg tablet,chewable 500 mcg PO DAILY azelastine 137 mcg (0.1 %) aerosol,spray 2 spray intranasal BID Qty: 30 11RF Rx Instructions: administer into each nostril (DME) CPAP Machine Misc See Rx Instructions .ROUTE .MEDSUPPLY Qty: 1 Rx Instructions: As directed spironolactone 25 mg tablet 25 mg PO DAILY Qty: 90 3RF ascorbic acid (vitamin C) [Vitamin C With Griselda Hips] 500 mg Tablet 500 mg PO DAILY Rx Instructions: OTC unable to verify acetaminophen [Tylenol 8 Hour] 650 mg Tablet Extended Release 650 mg PO Q8H PRN (Reason: Pain) famotidine 20 mg Tablet 20 mg PO HS albuterol sulfate 90 mcg/actuation Hfa Aerosol Inhaler 2 puff INHALATION QID PRN (Reason: Shortness Of Breath Or Wheezing) folic acid 800 mcg Tablet 0.8 mg PO DAILY Rx Instructions: no fill history/OTC unable to verify Metamucil 3.4 gram/5.4 gram Powder 2 tsp PO BID Rx Instructions: mix into at least 4 oz water or juice before administering Qvar RediHaler 40 mcg/actuation Hfa Aerosol Breath Activated 2 inh INHALATION BID montelukast [Singulair] 10 mg tablet 10 mg PO DAILY Changed insulin aspart U-100 [Novolog U-100 Insulin aspart] 100 unit/mL solution See Rx Instructions .ROUTE .COMPLEX Qty: 100 8RF Rx Instructions: use for meal-time coverage with parameters as follows; for BSG 150-200 give 4 units. for BSG 201-250 give 6 units. for BSG 251-300 give 8 units. for BSG 301-350 give 10 units. for BSG >350 give 12 units & call medical scientific liaison. bumetanide 1 mg tablet 3 mg PO QAM Qty: 0 0RF Held Jardiance 10 mg tablet 10 mg PO DAILY Qty: 30 6RF Hold Instructions: hold for now in light of dehydration/UTI insulin glargine U-300 conc [Toujeo Max U-300 SoloStar] 300 unit/mL (3 mL) insulin pen 70 unit subcut HS Hold Instructions: hold for now Rx Instructions: or as directed Discontinued metformin 500 mg tablet 500 mg PO BID Qty: 180 3RF metoprolol succinate 25 mg tablet extended release 24 hr 25 mg PO DAILY Qty: 90 3RF losartan-hydrochlorothiazide 100-25 mg tablet 1 tab PO DAILY Qty: 90 3RF pyridoxine (vitamin B6) [Vitamin B-6] 100 mg Tablet 100 mg PO DAILY Rx Instructions: OTC unable to verify Discharge Orders: Discharge Order (Routine); Ordered 04/28/24 Ordered By: Nabil Vargas Admission Data Admit Date/Time: 04/24/24 07:26 Attending Provider: Nabil Vargas Admit Provider: Haim Lugo Primary Care Provider: Jostin Palomares Other Providers: Haim Lugo; [facility]; [facility]; [facility] Hospital Stay Data Consultations 04/21/24 13:58 ED Decision to Admit Stat Diagnostic Imagining Performed 04/21/24 11:29 CT abd pelvis IV con only Stat CT cervical spine wo con Stat CT chest diagnostic w con Stat CT head/brain wo con Stat 04/21/24 11:30 CT face [CT facial bones wo con] Stat Pending Results Patient Have Any Pending Studies at Discharge: No Discharge Instructions Given to Patient (Per Discharging Provider) Ms Milner was hospitalized after suffering a fall. The fall led to a significant head injury with facial laceration requiring repair (sutures now removed), hematoma near the right eye, extensive bruising over the face & neck, etc. Suspect a concussion as she continues with headaches at times. Fall was likely precipitated by severe orthostatic hypotension in the setting of UTI. UTI was treated with IV/oral antibiotics; course has been completed. Orthostatic hypotension now resolved following adjustment of multiple cardiac medications including her diuretics. A.fib - loop recorder interrogated - when in a.fib her heart rates drop to the 40s/50s with sleep. When awake heart rates are normal in the 60s to 80s range. [facility] Cardiology aware of the above and requests follow-up in the CHF clinic as well electrophysiology clinic. Recommendations - 1. check BSGs ac/hs 2. PT, OT - eval & Rx 3. warm compresses to face as much as possible over the next 1-2 weeks 4. wound care to right elbow region skin tear and laceration over the right knee 5. follow-up [facility] in 1-2 weeks to recheck #4 6. daily standing scale weights; call medical scientific liaison if any weight gain of more than 3 pounds over a 1-2 day period 7. orthostatic BPs IF any dizziness/lightheadedness 8. follow-up appointments - see separate section It was our pleasure to care for Ms Milner! Coding Diagnoses Fall from standing W19.XXXA Acute UTI (urinary tract infection) N39.0 Laceration of face S01.81XA Type 2 diabetes mellitus E11.9 Diastolic CHF I50.30 Atrial fibrillation I48.91
[2024-04-28 14:29] VITALS: BP 142/68
== END 2024-04-28 14:29 | DRG 690 ==
LOC: EDINP 11:19 → ED 11:19 → SUATTDRO 15:31 → 2W 17:28 → SUATTDRO 04-24 07:26